=== PATIENT | female | born 1955 | race Caucasian/White ===

== ENCOUNTER 2016-08-22 10:42 | Observation (INO) | payer OTHER ==
[~2016-08-22] VITALS: Ht 170.2 cm; Wt 161.1 kg
[2016-08-22] VITALS (7 sets, daily range): BP systolic 91–137; BP diastolic 63–77; PULSE 77–97; TEMP 36.9–37.1; O2SAT 91–95; Ht 170.2 cm; Wt 161.1 kg
[~2016-08-22 10:42] MED LIST: BUPRTAB51 PO; CHN/1 PO; DIVA500T59 PO; LORA-741 PO; RTL20 PO; TERB250T51 PO
[2016-08-22] MEDS ORDERED: VORT1TAB3 PO (11:09)
[2016-08-22] MEDS ORDERED: METH20TA66 PO (11:09)
[2016-08-22] MEDS ORDERED: WLLSR150 PO (11:09)
[2016-08-22] MEDS ORDERED: CHOL1000 PO (11:09)
[2016-08-22] MEDS ORDERED: SODIUM CHLORIDE 0.9% 1000ML 1,000 ML IV STA (11:22)
[2016-08-22] MEDS ORDERED: MoRPHine SULFATE 10 MG/ML CARP/VIAL IV STA (11:22)
[2016-08-22] MEDS ORDERED: ONDANSETRON INJ 2 MG/ML 2 ML VIAL IV STA (11:22)
[2016-08-22 11:35] LABS: BASO % 0.2 %; BASO ABS # 0.02 K/uL (0-0.2); COMPLETE YES; HEMATOCRIT 44.4 % (37-47); IG% 0.2 %; LYMPH % 21.4 %; LYMPH ABS # 1.73 K/uL (1.2-3.4); MEAN CELL VOLUME 87.9 fL (80-100); MEAN CORPUSCULAR HEMOGLOBIN 27.9 pg (25-34); MEAN CORPUSCULAR HGB CONC 31.8 g/dl (32-36); MEAN PLATELET VOLUME 13.1 fL (7.4-10.4); MONO % 5.9 %; NEUT % 69.3 %; PLATELET COUNT 168 K/uL (130-400); RED BLOOD COUNT 5.05 M/uL (4.2-5.4); WHITE BLOOD COUNT 8.07 K/uL (4.8-10.8)
[2016-08-22 11:42] LABS: BUN/CREATININE RATIO 11.9 (10-20); CALCIUM 8.7 mg/dl (8.5-10.1); CREATININE 0.98 mg/dl (0.60-1.20); MAGNESIUM 2.3 mg/dl (1.8-2.4); POTASSIUM 3.9 mmol/L (3.5-5.1)
[2016-08-22 11:46] LABS: URINE APPEARANCE CLEAR (CLEAR); URINE BILIRUBIN NEG (NEG); URINE COLOR DK YELLOW; URINE NITRITE NEG (NEG); URINE PH 8.5 (4.5-7.5); URINE SPECIFIC GRAVITY 1.022 (1.000-1.030); UROBILINOGEN NEG (NEG); ZZUR CULT IF INDIC CLEAN CATCH NO
[2016-08-22 11:48] LABS: INR 0.9 (0.9-1.1); PROTHROMBIN TIME (PATIENT) 10.1 SECONDS (9.0-12.0)
[2016-08-22 11:49] LABS: POINT OF CARE PRO-BNP < 15 pg/ml (0-900)
[2016-08-22 11:50] LABS: MANUAL MICROSCOPIC REQUIRED? NO; REVIEW REQ? NO
[2016-08-22 11:53] LABS: ALB/GLOB RATIO 0.9 (0.9-2); THYROID STIMULATING HORMONE 2.01 uIu/ml (0.300-4.500)
--- NOTE | 2016-08-22 11:54 | DIAGNOSTIC IMAGING REPORT ---
SINGLE VIEW CHEST CLINICAL HISTORY: Epigastric abdominal pain. Dyspnea. FINDINGS: An AP, portable, upright chest radiograph is obtained. No prior studies are available for comparison at the time of dictation. The examination is significant degraded by portable technique, large body habitus, and patient rotation. The heart is top normal for projection. No large pleural effusion or focal airspace consolidation is seen. Dependent atelectasis is observed. No pneumothorax is seen. The skeletal structures are osteopenic. The bony thorax is grossly intact. IMPRESSION: Dependent atelectasis with no acute cardiopulmonary abnormality identified. Electronically signed by: Nino Stahl M.D. 08/22/2016 11:53 AM Dictated Date/Time: 08/22/2016 11:51 AM
--- NOTE | 2016-08-22 13:06 | DIAGNOSTIC IMAGING REPORT ---
ULTRASOUND RIGHT UPPER QUADRANT ABDOMEN CLINICAL HISTORY: Epigastric abdominal pain. COMPARISON STUDY: Abdominal CT dated 04/20/2008. TECHNIQUE: Real-time, grayscale, and color flow sonography of the right upper quadrant of the abdomen was performed. Images are reviewed in the transverse and longitudinal planes. FINDINGS: Liver: The liver is normal in size and demonstrates heterogeneously increased echotexture consistent with hepatic steatosis. There is no intrahepatic biliary ductal dilatation. The main portal vein is patent. Gallbladder: There are numerous calcified gallstones identified. The gallbladder is distended and the gallbladder wall appears thickened measuring up to 4 mm. No pericholecystic fluid is identified. A sonographic Milton's sign is reportedly present. The common bile duct is dilated measuring up to 10 cm in diameter. Pancreas: Visualized portions of the pancreatic head and body are normal in appearance. Right kidney: Survey images of the right kidney demonstrate mild cortical atrophy. There is no hydronephrosis. Ascites: None. IMPRESSION: 1. Cholelithiasis with sonographic evidence of acute cholecystitis. Surgical consultation is advised. 2. The common bile duct is dilated measuring up to 10 mm. 3. Hepatic steatosis. Electronically signed by: Nino Stahl M.D. 08/22/2016 1:04 PM Dictated Date/Time: 08/22/2016 1:01 PM
[2016-08-22] MEDS ORDERED: MoRPHine SULFATE 4 MG/ML 1 ML CARP\\VIAL IV STA (13:16)
[2016-08-22] MEDS ORDERED: LABETALOL HCL IV 5 MG/ML 20ML IV PRN (14:00)
[2016-08-22] MEDS ORDERED: EpHEDrine SULFATE INJ 50 MG/ML AMP IV PRN (14:00)
[2016-08-22] MEDS ORDERED: ATROPINE SULFATE 0.1 MG/ML 5ML SYR IV PRN (14:00)
[2016-08-22] MEDS ORDERED: HYDROmorphone INJ 2 MG/ML SYR/VIAL IV PRN (14:00)
[2016-08-22] MEDS ORDERED: NALOXONE HCL 0.4 MG/1 ML VIAL/CARP IV PRN (14:00)
[2016-08-22] MEDS ORDERED: PHENYLEPHRINE 100MCG/ML 5ML SYR IV PRN (14:00)
[2016-08-22] MEDS ORDERED: FLUMAZENIL 0.1 MG/1 ML 10 ML VIAL IV PRN (14:00)
[2016-08-22] MEDS ORDERED: FENTANYL CITRATE INJ 50 MCG/1 ML 2 ML VIAL IV PRN ×2 (14:00→15:00)
[2016-08-22] MEDS: LACTATED RINGER'S 1000ML 1,000 ML IV SCH ×5 (14:00→23:53)
[2016-08-22] MEDS ORDERED: MEPERIDINE HCL 25 MG/ML CARP IV PRN (14:00)
[2016-08-22] MEDS ORDERED: ONDANSETRON INJ 2 MG/ML 2 ML VIAL IV PRN ×2 (14:00→15:00)
--- NOTE | 2016-08-22 14:11 | History and Physical ---
History & Physical Date & Time of Service: Aug 22, 2016 at 13:56 Chief Complaint: Abd. Pain-Gall Bladder Primary Care Physician: Allison Huntley CRNP History of Present Illness 60 y/o female with epigastric pain radiating to RUQ that began this morning. Does not identify an inciting event. She has had two previous attacks over the past several months but resolved quickly. Her pain this time is increasing during the day, has been given 14 mg morphine while in the ED. Had nausea without vomiting. Had U/S in the fall which showed "small stones." She had milk and potato chips around 09:00. Past Medical/Surgical History Medical Problems: Depression elevated BP elevated BSGs Surgical: ovarian cyst Family History Patient reports no known family medical history. Social History Smoking Status: Never Smoker Drug Use: none Multi-Drug Resistant Organisms History of MDRO: No Allergies Coded Allergies: No Known Allergies (Verified , NONE, 08/17/15) Home Medications Scheduled Bupropion HCl (Bupropion HCl Sr), 150 MG PO DAILY Cholecalciferol (Vitamin D3), 1,000 UNITS PO DAILY Methylphenidate HCl (Methylphenidate HCl), 20 MG PO DAILY Vortioxetine HBr (Trintellix), 20 MG PO DAILY Review of Systems Constitutional: No fever, No chills Respiratory: No cough, No shortness of breath Cardiovascular: No chest pain Abdomen: + pain, + nausea, + diarrhea (several months ago), No vomiting Physical Exam Vital Signs Date Time Temp Pulse Resp B/P (MAP) Pulse Ox O2 Delivery O2 Flow Rate FiO2 08/22/16 13:10 97 23 107/73 96 Nasal Cannula 2.0 08/22/16 12:21 78 08/22/16 11:57 67 20 102/51 96 Nasal Cannula 2.0 08/22/16 11:29 97 Room Air 08/22/16 10:44 36.4 68 20 157/87 95 Room Air General Appearance: WD/WN, no apparent distress Respiratory/Chest: lungs clear, normal breath sounds Cardiovascular: regular rate, rhythm Abdomen/GI: soft, + tenderness (mild RUQ, recently medicated) Skin: normal color, warm/dry Diagnostics Laboratory Results Results Past 24 Hours Test 08/22/16 11:05 08/22/16 11:29 Range/Units White Blood Count 8.07 4.8-10.8 K/uL Red Blood Count 5.05 4.2-5.4 M/uL Hemoglobin 14.1 12.0-16.0 g/dL Hematocrit 44.4 37-47 % Mean Corpuscular Volume 87.9 80-100 fL Mean Corpuscular Hemoglobin 27.9 25-34 pg Mean Corpuscular Hemoglobin Concent 31.8 32-36 g/dl Platelet Count 168 130-400 K/uL Mean Platelet Volume 13.1 7.4-10.4 fL Neutrophils (%) (Auto) 69.3 % Lymphocytes (%) (Auto) 21.4 % Monocytes (%) (Auto) 5.9 % Eosinophils (%) (Auto) 3.0 % Basophils (%) (Auto) 0.2 % Neutrophils # (Auto) 5.58 1.4-6.5 K/uL Lymphocytes # (Auto) 1.73 1.2-3.4 K/uL Monocytes # (Auto) 0.48 0.11-0.59 K/uL Eosinophils # (Auto) 0.24 0-0.5 K/uL Basophils # (Auto) 0.02 0-0.2 K/uL RDW Standard Deviation 45.7 36.4-46.3 fL RDW Coefficient of Variation 14.3 11.5-14.5 % Immature Granulocyte % (Auto) 0.2 % Immature Granulocyte # (Auto) 0.02 0.00-0.02 K/uL Prothrombin Time 10.1 9.0-12.0 SECONDS Prothromb Time International Ratio 0.9 0.9-1.1 Activated Partial Thromboplast Time 25.8 21.0-31.0 SECONDS Partial Thromboplastin Ratio 1.0 Urine Color DK YELLOW Urine Appearance CLEAR CLEAR Urine pH 8.5 4.5-7.5 Urine Specific [place] 1.022 1.000-1.030 Urine Protein NEG NEG Urine Glucose (UA) NEG NEG Urine Ketones NEG NEG Urine Occult Blood NEG NEG Urine Nitrite NEG NEG Urine Bilirubin NEG NEG Urine Urobilinogen NEG NEG Urine Leukocyte Esterase NEG NEG Sodium Level 142 136-145 mmol/L Potassium Level 3.9 3.5-5.1 mmol/L Chloride Level 106 98-107 mmol/L Carbon Dioxide Level 29 21-32 mmol/L Anion Gap 7.0 3-11 mmol/L Blood Urea Nitrogen 12 7-18 mg/dl Creatinine 0.98 0.60-1.20 mg/dl Est Creatinine Clear Calc Drug Dose 99.0 ml/min Estimated GFR () 73.2 Estimated GFR (Non- 63.1 BUN/Creatinine Ratio 11.9 10-20 Random Glucose 130 70-99 mg/dl Calcium Level 8.7 8.5-10.1 mg/dl Magnesium Level 2.3 1.8-2.4 mg/dl Total Bilirubin 0.9 0.2-1 mg/dl Aspartate Amino Transf (AST/SGOT) 57 15-37 U/L Alanine Aminotransferase (ALT/SGPT) 35 12-78 U/L Alkaline Phosphatase 91 45-117 U/L Total Creatine Kinase 134 26-192 U/L Creatine Kinase MB 1.4 0.5-3.6 ng/ml Creatine Kinase MB Ratio 1.0 0-3.0 Total Protein 7.6 6.4-8.2 gm/dl Albumin 3.6 3.4-5.0 gm/dl Globulin 4.0 2.5-4.0 gm/dl Albumin/Globulin Ratio 0.9 0.9-2 Lipase 174 73-393 U/L Thyroid Stimulating Hormone (TSH) 2.010 0.300-4.500 uIu/ml Bedside Troponin I 0.000 0-0.045 ng/ml CI-Skf-I-Type Natriuretic Peptide < 15 0-900 pg/ml Diagnostic Radiology ULTRASOUND RIGHT UPPER QUADRANT ABDOMEN CLINICAL HISTORY: Epigastric abdominal pain. COMPARISON STUDY: Abdominal CT dated 04/20/2008. TECHNIQUE: Real-time, grayscale, and color flow sonography of the right upper quadrant of the abdomen was performed. Images are reviewed in the transverse and longitudinal planes. FINDINGS: Liver: The liver is normal in size and demonstrates heterogeneously increased echotexture consistent with hepatic steatosis. There is no intrahepatic biliary ductal dilatation. The main portal vein is patent. Gallbladder: There are numerous calcified gallstones identified. The gallbladder is distended and the gallbladder wall appears thickened measuring up to 4 mm. No pericholecystic fluid is identified. A sonographic Milton's sign is reportedly present. The common bile duct is dilated measuring up to 10 cm in diameter. Pancreas: Visualized portions of the pancreatic head and body are normal in appearance. Right kidney: Survey images of the right kidney demonstrate mild cortical atrophy. There is no hydronephrosis. Ascites: None. IMPRESSION: 1. Cholelithiasis with sonographic evidence of acute cholecystitis. Surgical consultation is advised. 2. The common bile duct is dilated measuring up to 10 mm. 3. Hepatic steatosis. Electronically signed by: Nino Stahl M.D. 08/22/2016 1:04 PM Dictated Date/Time: 08/22/2016 1:01 PM Impression Assessment and Plan Acute cholecystitis Will plan for laparoscopic cholecystectomy (possible open), without cholangiogram. We will discuss timing of this with anesthesia since she ate earlier today. Procedure, recovery, and risks were discussed including, bleeding , infection, injury to CBD or other structures and possible bile leak were discussed with the patient.
[2016-08-22] MEDS ORDERED: CEFAZOLIN IV 2,000 MG/60 ML D5W IV ONE (14:45)
[2016-08-22] MEDS ORDERED: BUPIVACAINE/EPINEPHRINE 0.5% MPF 1:200,000 30 ML VIAL ONE (14:56)
[2016-08-22] MEDS ORDERED: LACTATED RINGER'S 1000ML 1,000 ML IV PRN (14:57)
[2016-08-22] MEDS ORDERED: HYDROmorphone INJ 1 MG/ML SYR IV PRN (15:00)
[2016-08-22] MEDS ORDERED: NURSING VERBAL MED ORDER ONE (15:00)
[2016-08-22] MEDS ORDERED: FENTANYL CITRATE INJ 50 MCG/1 ML 2 ML VIAL ONE (15:25)
[2016-08-22] MEDS ORDERED: MIDAZOLAM HCL 1 MG/ML 2ML VIAL ONE (15:26)
[2016-08-22] MEDS ORDERED: ACETAMINOPHEN 1000 MG/100 ML IV IV ONE (15:27)
[2016-08-22] MEDS ORDERED: LABETALOL HCL IV 5 MG/ML 20ML IV ONE (16:05)
[2016-08-22] MEDS ORDERED: NEOSTIGMINE METHYLSULFATE 5 MG/5 ML SYR ONE (16:06)
[2016-08-22] MEDS ORDERED: SUCCINYLCHOLINE CHLORIDE 20 MG/ML 10 ML VIAL IV ONE (16:06)
[2016-08-22] MEDS ORDERED: PROPOFOL IV EMULSION 10 MG/ML 20 ML VIAL IV ONE (16:06)
[2016-08-22] MEDS ORDERED: ROCURONIUM BROMIDE 10 MG/ML 5 ML VIAL ONE (16:06)
[2016-08-22] MEDS ORDERED: KETOROLAC TROMETHAMINE 30 MG/ML VIAL ONE (16:06)
[2016-08-22] MEDS ORDERED: GLYCOPYRROLATE INJ 0.2 MG/ML VIAL ONE (16:06)
[2016-08-22] MEDS ORDERED: LIDOCAINE HCL 2% 2 ML VIAL (20MG/ML) ONE (16:06)
--- NOTE | 2016-08-22 16:06 | [facility] Operative Report ---
Operative Report Operative Date Aug 22, 2016. Pre-Operative Diagnosis Acute Cholecystitis Post-Operative Diagnosis same Procedure(s) Performed lap doreen Surgeon Dr. Rhodes Turkey Farmer Surgeon(s) JOHN Torres Estimated Blood Loss 10 ml Findings acutely inflammed gallbladder Specimens A. Gallbladder Anesthesia get Complication(s) None Disposition Recovery Room / PACU I attest to the content of the Intraoperative Record and any orders documented therein. Any exceptions are noted below.
[2016-08-22] MEDS ORDERED: MoRPHine SULFATE 4 MG/ML 1 ML CARP\\VIAL IV PRN (16:15)
[2016-08-22] MEDS ORDERED: IV FLUIDS COMPLETED PRN (16:30)
[2016-08-22] MEDS ORDERED: HYDROCODONE/ACETAMOPHEN 5/325MG TAB PO PRN (16:30)
--- NOTE | 2016-08-22 16:39 | Anesthesiology Progress Note ---
Anesthesia Post Op Note Date & Time Aug 22, 2016 at 16:38 Vital Signs Pain Intensity: 0 Vital Signs Past 12 Hours Date Time Temp Pulse Resp B/P (MAP) Pulse Ox O2 Delivery O2 Flow Rate FiO2 08/22/16 16:12 38.1 97 16 153/87 94 Mask 10 08/22/16 14:46 36.7 116 20 162/66 92 Room Air 08/22/16 14:12 94 18 132/67 93 08/22/16 13:10 97 23 107/73 96 Nasal Cannula 2.0 08/22/16 12:21 78 08/22/16 11:57 67 20 102/51 96 Nasal Cannula 2.0 08/22/16 11:29 97 Room Air 08/22/16 10:44 36.4 68 20 157/87 95 Room Air Notes Mental Status: alert / awake / arousable, participated in evaluation Pt Amnestic to Procedure: Yes Nausea / Vomiting: adequately controlled Pain: adequately controlled Airway Patency, RR, SpO2: stable & adequate BP & HR: stable & adequate Hydration State: stable & adequate Anesthetic Complications: no major complications apparent Temp now normal. Keeping sats in 90s on 2L NC.
--- NOTE | 2016-08-22 21:08 | OPERATIVE REPORT ---
DATE OF OPERATION: 08/22/2016 PREOPERATIVE DIAGNOSIS: Acute cholecystitis. POSTOPERATIVE DIAGNOSIS: Same. PROCEDURE: Laparoscopic cholecystectomy. SURGEON: Dr. Rhodes. CALL BOX WIRER: Dejon Ledbetter PA-C. ESTIMATED BLOOD LOSS: 10 mL. COMPLICATIONS: No immediate. ANESTHESIA: General. The patient tolerated the procedure well. OPERATIVE NOTE: After informed consent was obtained, the patient taken to the operating suite, placed in supine position. After successful intubation, the abdomen was sterilely prepped and draped in usual fashion. A supraumbilical incision was made with 11 blade scalpel and carried down through the soft tissue using electrocautery. Anterior rectus fascia was opened using electrocautery and two #0 Vicryl stay sutures were placed. Peritoneum was entered using blunt finger penetration and a finger sweep was performed to take down any adhesions. A 12 mm Karey trocar was placed and the abdomen was insufflated to 18 mmHg. Laparoscope was inserted and the abdomen examined 360 degrees. A subxiphoid 5 mm port and 2 right upper quadrant 5 mm ports were placed under direct vision. The patient was placed in reverse Trendelenburg position slightly airplaned to the left. The gallbladder was distended and somewhat thickened. We were able to grab it and elevate it superiorly and laterally. A [place] dissector was used to take down some adhesions around the neck of the gallbladder. I was able to skeletonize the cystic duct without much difficulty. Two clips proximally and 1 clip distally were placed and the cystic duct was transected. In similar fashion, the cystic artery was skeletonized, clipped and divided as well. There was a posterior and anterior additional branches of the artery which I skeletonized, clipped and divided also. I then removed the gallbladder from the gallbladder fossa using electrocautery. It was removed intact and placed into an EndoCatch bag. Several small bleeding points were controlled using electrocautery. We irrigated the right upper quadrant and suctioned it dry. At the end of the procedure, there was adequate hemostasis and no evidence of any bile leaks. Quick look around the abdomen showed no other abnormality. The gallbladder was removed from the camera port site. All the trocars were removed and the abdomen desufflated. The fascia of the camera port was closed using 0 Vicryl in a [id number] fashion. All wounds were irrigated. We closed the majority of the incision with 4-0 Monocryl. Due to some oozing, we did close several of the incisions with a 3-0 nylon in simple interrupted fashion. Sterile dressing was applied. The patient was awakened, extubated, and transferred to recovery in stable condition. I attest to the content of the Intraoperative Record and any orders documented therein. Any exception s are noted below.
[2016-08-22] MEDS: CEFAZOLIN IV 3,000 MG in DEXTROSE 5% 50ML 50 ML IV SCH (21:52)
--- NOTE | 2016-08-22 23:15 | EMERGENCY ROOM VISIT NOTE ---
History First contact with patient: 11:15 Chief Complaint: ABDOMINAL PAIN Stated Complaint: ABDOMINAL PAIN, RIGHT LOWER QUARDRANT Nursing Triage Summary: pt reports bilat upper abd pain started at 0900 this am has hx of gallbladder problems. feels faint and weak pain stronger than other attacks History of Present Illness The patient is a 60 year old female who presents to the Emergency Room via private vehicle with complaints of "abdominal pain, right lower quadrant pain" . The patient states that today around 9 AM, she noticed pain in the stomach region, and is been getting worse. She notes the pain is intense, and points to the epigastric and right upper quadrant regions. Her last movement was last night, and it was normal for her but perhaps slightly constipated. She denies any blood in the stool. She denies any chance of . There is associated shortness of breath, and diaphoresis. She denies any nausea, chest pain, history of blood clots, history of heart problems, diabetes, fevers, chills, or call use, long flights. Review of Systems A complete 10-point Review of Systems was discussed with the patient, with pertinent positives and negatives listed in the History of Present Illness. All remaining Review of Systems questions can be considered negative unless otherwise specified. Past Medical/Surgical History Medical Problems: (1) Abdominal pain, right lower quadrant (2) Abnorm Electrocardiogram (3) Hypertension Nos Family History Patient reports no known family medical history. Social History Smoking Status: Former Smoker Drug Use: none Current/Historical Medications Scheduled Bupropion HCl (Bupropion HCl Sr), 150 MG PO DAILY Cholecalciferol (Vitamin D3), 1,000 UNITS PO DAILY Methylphenidate HCl (Methylphenidate HCl), 20 MG PO DAILY Vortioxetine HBr (Trintellix), 20 MG PO DAILY Allergies Coded Allergies: No Known Allergies (Verified , NONE, 08/22/16) Physical Exam Vital Signs Date Time Temp Pulse Resp B/P (MAP) Pulse Ox O2 Delivery O2 Flow Rate FiO2 08/22/16 14:46 36.7 116 20 162/66 92 Room Air 08/22/16 14:12 94 18 132/67 93 08/22/16 13:10 97 23 107/73 96 Nasal Cannula 2.0 08/22/16 12:21 78 08/22/16 11:57 67 20 102/51 96 Nasal Cannula 2.0 08/22/16 11:29 97 Room Air 08/22/16 10:44 36.4 68 20 157/87 95 Room Air Pain Rating (0-10): 4.0 Physical Exam VITAL SIGNS - Vital signs and nursing notes were reviewed. Patient is afebrile , hypertensive at 157 or radius 7, non-tachycardic and saturating normal room air 95%. GENERAL -60-year-old female appearing her stated age who is in no acute distress. Communicates well with provider and answers questions appropriately. SKIN - Without rashes. No petechial rashes. HEAD - NC/AT. EYES - PERRL with EOMI bilaterally. Sclera anicteric. Palpebral conjunctiva pink and moist with no injection noted. EARS - No deformities of external structures noted on gross examination bilaterally. No pain elicited with palpation of the tragus bilaterally. External auditory canals without discharge or otorrhea. Tympanic membranes pearly crain without retraction or bulging. No fluid or purulent material visualized behind the TM. Handle of malleus, umbo, cone of light, pars tensa/ flaccid all easily visualized. NOSE - Midline and without cyanosis. No epistaxis or purulent drainage noted. Septum midline without deviation or septal hematoma noted. MOUTH/OROPHARYNX - Without perioral cyanosis. Buccal mucosa pink and moist and without leukoplakia. Tongue midline with equal elevation of palate bilaterally. No tonsillar hypertrophy, erythema, or exudates noted. Fair dentition noted. LUNGS - Chest wall symmetric without accessory muscle use, intercostals retractions, or central cyanosis. Normal vesicular breath sounds CTA B/L. No wheezes, rales, or rhonchi appreciated. CARDIAC - RRR with S1/S2. No murmur, rubs, or gallops appreciated. ABDOMEN - Abdominal contour without pulsations or visible masses. BS normoactive all four quadrants. There is diffuse tenderness in the upper quadrants. No palpable masses, hepatosplenomegaly, or ascites noted. EXTREMITIES - No clubbing or peripheral cyanosis. No pretibial edema present. + 5/5 strength noted in UE/LE bilaterally. Medical Decision & Procedures ER Provider Diagnostic Interpretation: SINGLE VIEW CHEST CLINICAL HISTORY: Epigastric abdominal pain. Dyspnea. FINDINGS: An AP, portable, upright chest radiograph is obtained. No prior studies are available for comparison at the time of dictation. The examination is significant degraded by portable technique, large body habitus, and patient rotation. The heart is top normal for projection. No large pleural effusion or focal airspace consolidation is seen. Dependent atelectasis is observed. No pneumothorax is seen. The skeletal structures are osteopenic. The bony thorax is grossly intact. IMPRESSION: Dependent atelectasis with no acute cardiopulmonary abnormality identified. Electronically signed by: Nino Stahl M.D. 08/22/2016 11:53 AM Dictated Date/Time: 08/22/2016 11:51 AM ULTRASOUND RIGHT UPPER QUADRANT ABDOMEN CLINICAL HISTORY: Epigastric abdominal pain. COMPARISON STUDY: Abdominal CT dated 04/20/2008. TECHNIQUE: Real-time, grayscale, and color flow sonography of the right upper quadrant of the abdomen was performed. Images are reviewed in the transverse and longitudinal planes. FINDINGS: Liver: The liver is normal in size and demonstrates heterogeneously increased echotexture consistent with hepatic steatosis. There is no intrahepatic biliary ductal dilatation. The main portal vein is patent. Gallbladder: There are numerous calcified gallstones identified. The gallbladder is distended and the gallbladder wall appears thickened measuring up to 4 mm. No pericholecystic fluid is identified. A sonographic Milton's sign is reportedly present. The common bile duct is dilated measuring up to 10 cm in diameter. Pancreas: Visualized portions of the pancreatic head and body are normal in appearance. Right kidney: Survey images of the right kidney demonstrate mild cortical atrophy. There is no hydronephrosis. Ascites: None. IMPRESSION: 1. Cholelithiasis with sonographic evidence of acute cholecystitis. Surgical consultation is advised. 2. The common bile duct is dilated measuring up to 10 mm. 3. Hepatic steatosis. Electronically signed by: Nino Stahl M.D. 08/22/2016 1:04 PM Dictated Date/Time: 08/22/2016 1:01 PM Laboratory Results 08/22/16 11:05 Red Blood Count 5.05, Mean Corpuscular Volume 87.9, Mean Corpuscular Hemoglobin 27.9, Mean Corpuscular Hemoglobin Concent 31.8, Mean Platelet Volume 13.1, Neutrophils (%) (Auto) 69.3, Lymphocytes (%) (Auto) 21.4, Monocytes (%) (Auto) 5.9, Eosinophils (%) (Auto) 3.0, Basophils (%) (Auto) 0.2, Neutrophils # (Auto) 5.58, Lymphocytes # (Auto) 1.73, Monocytes # (Auto) 0.48, Eosinophils # (Auto) 0.24, Basophils # (Auto) 0.02 08/22/16 11:05 Test 08/22/16 11:05 08/22/16 11:29 White Blood Count 8.07 K/uL (4.8-10.8) Red Blood Count 5.05 M/uL (4.2-5.4) Hemoglobin 14.1 g/dL (12.0-16.0) Hematocrit 44.4 % (37-47) Mean Corpuscular Volume 87.9 fL (80-100) Mean Corpuscular Hemoglobin 27.9 pg (25-34) Mean Corpuscular Hemoglobin Concent 31.8 g/dl (32-36) Platelet Count 168 K/uL (130-400) Mean Platelet Volume 13.1 fL (7.4-10.4) Neutrophils (%) (Auto) 69.3 % Lymphocytes (%) (Auto) 21.4 % Monocytes (%) (Auto) 5.9 % Eosinophils (%) (Auto) 3.0 % Basophils (%) (Auto) 0.2 % Neutrophils # (Auto) 5.58 K/uL (1.4-6.5) Lymphocytes # (Auto) 1.73 K/uL (1.2-3.4) Monocytes # (Auto) 0.48 K/uL (0.11-0.59) Eosinophils # (Auto) 0.24 K/uL (0-0.5) Basophils # (Auto) 0.02 K/uL (0-0.2) RDW Standard Deviation 45.7 fL (36.4-46.3) RDW Coefficient of Variation 14.3 % (11.5-14.5) Immature Granulocyte % (Auto) 0.2 % Immature Granulocyte # (Auto) 0.02 K/uL (0.00-0.02) Prothrombin Time 10.1 SECONDS (9.0-12.0) Prothromb Time International Ratio 0.9 (0.9-1.1) Activated Partial Thromboplast Time 25.8 SECONDS (21.0-31.0) Partial Thromboplastin Ratio 1.0 Urine Color DK YELLOW Urine Appearance CLEAR (CLEAR) Urine pH 8.5 (4.5-7.5) Urine Specific [place] 1.022 (1.000-1.030) Urine Protein NEG (NEG) Urine Glucose (UA) NEG (NEG) Urine Ketones NEG (NEG) Urine Occult Blood NEG (NEG) Urine Nitrite NEG (NEG) Urine Bilirubin NEG (NEG) Urine Urobilinogen NEG (NEG) Urine Leukocyte Esterase NEG (NEG) Anion Gap 7.0 mmol/L (3-11) Est Creatinine Clear Calc Drug Dose 99.0 ml/min Estimated GFR () 73.2 Estimated GFR (Non- 63.1 BUN/Creatinine Ratio 11.9 (10-20) Calcium Level 8.7 mg/dl (8.5-10.1) Magnesium Level 2.3 mg/dl (1.8-2.4) Total Bilirubin 0.9 mg/dl (0.2-1) Aspartate Amino Transf (AST/SGOT) 57 U/L (15-37) Alanine Aminotransferase (ALT/SGPT) 35 U/L (12-78) Alkaline Phosphatase 91 U/L (45-117) Total Creatine Kinase 134 U/L (26-192) Creatine Kinase MB 1.4 ng/ml (0.5-3.6) Creatine Kinase MB Ratio 1.0 (0-3.0) Total Protein 7.6 gm/dl (6.4-8.2) Albumin 3.6 gm/dl (3.4-5.0) Globulin 4.0 gm/dl (2.5-4.0) Albumin/Globulin Ratio 0.9 (0.9-2) Lipase 174 U/L (73-393) Thyroid Stimulating Hormone (TSH) 2.010 uIu/ml (0.300-4.500) Bedside Troponin I 0.000 ng/ml (0-0.045) MB-Nob-W-Type Natriuretic Peptide < 15 pg/ml (0-900) Medications Administered Medications (Trade) Dose Ordered Sig/Milton Route Start Time Stop Time Status Last Admin Dose Admin Sodium Chloride 1,000 ml @ 200 mls/hr Q5H STAT IV 08/22/16 11:22 08/22/16 16:21 DC 08/22/16 11:38 200 MLS/HR Morphine Sulfate (MoRPHine SULFATE INJ) 10 mg NOW STAT IV 08/22/16 11:22 08/22/16 11:25 DC 08/22/16 11:38 10 MG Ondansetron HCl (Zofran Inj) 4 mg NOW STAT IV 08/22/16 11:22 08/22/16 11:25 DC 08/22/16 11:38 4 MG Morphine Sulfate (MoRPHine SULFATE INJ) 4 mg NOW STAT IV 08/22/16 13:16 08/22/16 13:18 DC 08/22/16 13:26 4 MG Lactated Ringer's 1,000 ml @ 150 mls/hr Q6H40M IV 08/22/16 14:00 08/22/16 23:06 DC 08/22/16 20:07 150 MLS/HR Bupivacaine HCl/ Epinephrine Bitart (Sensorcaine/ Epinephrine 0.5% Mpf 1:200,000) 30 ml STK-MED ONCE .ROUTE 08/22/16 14:56 08/22/16 14:57 DC 08/22/16 15:56 8 ML Medical Decision Patient was seen and evaluated as above. After obtaining a thorough history and physical examination IV access was initiated, patient was immediately provided with pain medication, 10 mg of morphine and 4 mg of Zofran. Her emergent EKG reveals sinus rhythm, with short NM, otherwise normal EKG. No ectopy or ischemic change. This was compared with EKG that was performed on October 1998, and no significant change was found. The patient's vital signs were stable, however her upper quadrant abdominal pain was concerning. Chest x- ray was negative. Ultrasound was obtained and revealed acute cholecystitis. There is no leukocytosis or concerning anemia. Coagulation studies unremarkable. CMP unremarkable other than AST elevated at 57, and random glucose of 1:30. BNP and troponin were negative. Lipase and TSH were unremarkable. Urine studies unremarkable other than high pH. Surgical consultation was recommended by the radiologist given the ultrasound findings. I did discuss the case with the construction controller surgeon, Dr. Rhodes at 1:21 PM. It was identified that the patient last ate chocolate milk and potato chips at 9 AM. He agreed to accept the patient. Please refer to further documentation regarding her stay. I do believe that she is a surgical candidate. In evaluation treatment this patient following differential diagnoses entertained: Acute cholecystitis, choledocholithiasis, cholangitis, pancreatitis , UT, PE, among others. Impression Primary Impression: Acute cholecystitis Departure Information Dispostion Admitted as an inpatient Condition GOOD Referrals Allison Huntley CRNP (PCP) Forms Call Back Authorization, HOME CARE DOCUMENTATION FORM, IMPORTANT VISIT INFORMATION Patient Instructions [facility]
[2016-08-23 03:50] VITALS: BP 107/71; PULSE 67; TEMP 36.8; O2SAT 93
[2016-08-23] MEDS: CEFAZOLIN IV 3,000 MG in DEXTROSE 5% 50ML 50 ML IV SCH (05:53)
[2016-08-23 06:55] VITALS: BP 113/70; PULSE 64; TEMP 36.7; O2SAT 95
[2016-08-23] MEDS: LACTATED RINGER'S 1000ML 1,000 ML IV SCH (07:39)
[2016-08-23] MEDS: TRINTELLIX~ORDER AWAITING ACTION SCH ×2 (07:40)
[2016-08-23 07:41] LABS: MEAN CORPUSCULAR HGB CONC 31.6 g/dl (32-36)
[2016-08-23] MEDS ORDERED: OXYC-57 PO (07:51)
--- NOTE | 2016-08-23 07:53 | Discharge Instructions ---
Discharge Instructions Date of Service Aug 23, 2016. Admission Reason for Admission: Abdominal Pain, Right Lower Quardrant Discharge Discharge Diagnosis / Problem: laparoscopic cholecystectomy Discharge Goals Goal(s): Decrease discomfort Activity Recommendations Activity Limitations: as noted below Lifting Limitations: no more than 10 pounds Shower/Bathe: no limitations Driving or Machine Use: resume 3 days after discharge . Instructions / Follow-Up Instructions / Follow-Up Dr. Rhodes in 7-10 days, call [phone] to schedule, [address] Current Hospital Diet Patient's current hospital diet: Regular Diet Discharge Diet Recommended Diet: Regular Diet Procedures Procedures Performed: Laparoscopic Cholecystectomy Pending Studies Studies pending at discharge: yes List of pending studies: Pathology Medical Emergencies . Who to Call and When: Medical Emergencies: If at any time you feel your situation is an emergency, please call 911 immediately. . Non-Emergent Contact Non-Emergency issues call your: Surgeon Call Non-Emergent contact if: you have a fever, temperature is above 101.5, your pain is not controlled, wound has increased pain, you have any medication questions . "Provider Documentation" section prepared by Dejon Ledbetter. . VTE Core Measure Inpt VTE Proph given/why not?: SCD's
[2016-08-23 08:00] LABS: HEMATOCRIT 39.9 % (37-47); MEAN CELL VOLUME 89.3 fL (80-100); MEAN CORPUSCULAR HEMOGLOBIN 28.2 pg (25-34); RED BLOOD COUNT 4.47 M/uL (4.2-5.4); WHITE BLOOD COUNT 12.85 K/uL (4.8-10.8)
[2016-08-23] MEDS ORDERED: ACETAMINOPHEN 325 MG TAB PO PRN (08:00)
--- NOTE | 2016-08-23 08:10 | Anesthesiology Progress Note ---
Anesthesia Post Op Note Date & Time Aug 23, 2016 at 08:09 Vital Signs Pain Intensity: 5.0 Vital Signs Past 12 Hours Date Time Temp Pulse Resp B/P (MAP) Pulse Ox O2 Delivery O2 Flow Rate FiO2 08/23/16 06:55 36.7 64 16 113/70 (84) 95 Nasal Cannula 4.0 08/23/16 03:50 36.8 67 16 107/71 (83) 93 Nasal Cannula 4.0 08/22/16 23:50 Nasal Cannula 4.0 08/22/16 23:03 36.9 77 16 91/63 (72) 94 Nasal Cannula 4.0 Notes Mental Status: alert / awake / arousable, participated in evaluation Pt Amnestic to Procedure: Yes Nausea / Vomiting: adequately controlled Pain: adequately controlled Airway Patency, RR, SpO2: stable & adequate BP & HR: stable & adequate Hydration State: stable & adequate Anesthetic Complications: no major complications apparent
[2016-08-23 08:32] LABS: BASO % 0.1 %; BASO ABS # 0.01 K/uL (0-0.2); COMPLETE YES; IG% 0.2 %; LYMPH % 7.1 %; LYMPH ABS # 0.91 K/uL (1.2-3.4); MEAN PLATELET VOLUME 13.7 fL (7.4-10.4); MONO % 3.3 %; NEUT % 89.3 %; PLATELET COUNT 136 K/uL (130-400); PLT ESTIMATE NORMAL
[2016-08-23] MEDS ORDERED: ENOXAPARIN 40 MG/0.4 ML SYR SQ SCH (09:00)
[2016-08-23] MEDS ORDERED: METHYLPHENIDATE HCL 10 MG TAB PO SCH (09:00)
[2016-08-23] MEDS ORDERED: BuPROPion SR 150 MG TABCR PO SCH (09:00)
--- NOTE | 2016-08-23 10:06 | Surgery Progress Note ---
Surgery Progress Note Date of Service Aug 23, 2016. Subjective Post OP Day: 1 + feeling well, + diet (regular), No nausea Objective Vital Signs: Date Time Temp Pulse Resp B/P (MAP) Pulse Ox O2 Delivery O2 Flow Rate FiO2 08/23/16 07:35 Nasal Cannula 4.0 08/23/16 06:55 36.7 64 16 113/70 (84) 95 Nasal Cannula 4.0 08/23/16 03:50 36.8 67 16 107/71 (83) 93 Nasal Cannula 4.0 08/22/16 23:50 Nasal Cannula 4.0 08/22/16 23:03 36.9 77 16 91/63 (72) 94 Nasal Cannula 4.0 08/22/16 20:00 37.0 92 18 96/65 (75) 93 Nasal Cannula 4.0 08/22/16 19:01 37.1 97 20 117/76 (90) 95 Nasal Cannula 4.0 08/22/16 18:09 37.1 92 16 137/77 (97) 92 Nasal Cannula 4.0 08/22/16 17:29 37.1 86 24 121/74 (90) 91 Nasal Cannula 4.0 08/22/16 17:15 37.1 92 20 125/77 93 Nasal Cannula 4.0 08/22/16 17:15 93 Nasal Cannula 4.0 08/22/16 17:00 37.1 92 20 125/77 (93) 93 Nasal Cannula 4.0 08/22/16 16:57 93 08/22/16 16:57 93 111/61 93 08/22/16 16:52 90 18 112/58 94 08/22/16 16:52 90 18 08/22/16 16:47 87 20 113/67 93 08/22/16 16:47 87 20 08/22/16 16:42 27 08/22/16 16:42 93 27 121/68 08/22/16 16:40 37.3 96 23 121/68 95 Nasal Cannula 4 08/22/16 16:37 98 27 08/22/16 16:37 98 27 116/73 91 08/22/16 16:32 99 28 132/78 91 08/22/16 16:32 99 28 08/22/16 16:27 99 29 147/76 94 08/22/16 16:27 98 29 08/22/16 16:22 93 22 154/80 94 08/22/16 16:22 93 22 08/22/16 16:17 97 25 08/22/16 16:17 96 25 137/83 93 08/22/16 16:13 153/87 08/22/16 16:12 38.1 97 16 153/87 94 Mask 10 08/22/16 14:46 36.7 116 20 162/66 92 Room Air 08/22/16 14:12 94 18 132/67 93 08/22/16 13:10 97 23 107/73 96 Nasal Cannula 2.0 08/22/16 12:21 78 08/22/16 11:57 67 20 102/51 96 Nasal Cannula 2.0 08/22/16 11:29 97 Room Air 08/22/16 10:44 36.4 68 20 157/87 95 Room Air Abdomen: non distended, soft Incision(s): clean, dry Laboratory Results: Results Past 24 Hours Test 08/22/16 11:05 08/22/16 11:29 08/23/16 07:20 Range/Units White Blood Count 8.07 12.85 4.8-10.8 K/uL Red Blood Count 5.05 4.47 4.2-5.4 M/uL Hemoglobin 14.1 12.6 12.0-16.0 g/dL Hematocrit 44.4 39.9 37-47 % Mean Corpuscular Volume 87.9 89.3 80-100 fL Mean Corpuscular Hemoglobin 27.9 28.2 25-34 pg Mean Corpuscular Hemoglobin Concent 31.8 31.6 32-36 g/dl Platelet Count 168 136 130-400 K/uL Mean Platelet Volume 13.1 13.7 7.4-10.4 fL Neutrophils (%) (Auto) 69.3 89.3 % Lymphocytes (%) (Auto) 21.4 7.1 % Monocytes (%) (Auto) 5.9 3.3 % Eosinophils (%) (Auto) 3.0 0.0 % Basophils (%) (Auto) 0.2 0.1 % Neutrophils # (Auto) 5.58 11.47 1.4-6.5 K/uL Lymphocytes # (Auto) 1.73 0.91 1.2-3.4 K/uL Monocytes # (Auto) 0.48 0.43 0.11-0.59 K/uL Eosinophils # (Auto) 0.24 0.00 0-0.5 K/uL Basophils # (Auto) 0.02 0.01 0-0.2 K/uL RDW Standard Deviation 45.7 47.6 36.4-46.3 fL RDW Coefficient of Variation 14.3 14.6 11.5-14.5 % Immature Granulocyte % (Auto) 0.2 0.2 % Immature Granulocyte # (Auto) 0.02 0.03 0.00-0.02 K/uL Prothrombin Time 10.1 9.0-12.0 SECONDS Prothromb Time International Ratio 0.9 0.9-1.1 Activated Partial Thromboplast Time 25.8 21.0-31.0 SECONDS Partial Thromboplastin Ratio 1.0 Urine Color DK YELLOW Urine Appearance CLEAR CLEAR Urine pH 8.5 4.5-7.5 Urine Specific [place] 1.022 1.000-1.030 Urine Protein NEG NEG Urine Glucose (UA) NEG NEG Urine Ketones NEG NEG Urine Occult Blood NEG NEG Urine Nitrite NEG NEG Urine Bilirubin NEG NEG Urine Urobilinogen NEG NEG Urine Leukocyte Esterase NEG NEG Sodium Level 142 136-145 mmol/L Potassium Level 3.9 3.5-5.1 mmol/L Chloride Level 106 98-107 mmol/L Carbon Dioxide Level 29 21-32 mmol/L Anion Gap 7.0 3-11 mmol/L Blood Urea Nitrogen 12 7-18 mg/dl Creatinine 0.98 0.60-1.20 mg/dl Est Creatinine Clear Calc Drug Dose 99.0 ml/min Estimated GFR () 73.2 Estimated GFR (Non- 63.1 BUN/Creatinine Ratio 11.9 10-20 Random Glucose 130 70-99 mg/dl Calcium Level 8.7 8.5-10.1 mg/dl Magnesium Level 2.3 1.8-2.4 mg/dl Total Bilirubin 0.9 0.2-1 mg/dl Aspartate Amino Transf (AST/SGOT) 57 15-37 U/L Alanine Aminotransferase (ALT/SGPT) 35 12-78 U/L Alkaline Phosphatase 91 45-117 U/L Total Creatine Kinase 134 26-192 U/L Creatine Kinase MB 1.4 0.5-3.6 ng/ml Creatine Kinase MB Ratio 1.0 0-3.0 Total Protein 7.6 6.4-8.2 gm/dl Albumin 3.6 3.4-5.0 gm/dl Globulin 4.0 2.5-4.0 gm/dl Albumin/Globulin Ratio 0.9 0.9-2 Lipase 174 73-393 U/L Thyroid Stimulating Hormone (TSH) 2.010 0.300-4.500 uIu/ml Bedside Troponin I 0.000 0-0.045 ng/ml PT-[id number]-Type Natriuretic Peptide < 15 0-900 pg/ml Platelet Estimate NORMAL Red Blood Cell Morphology Unremarkable Assessment & Plan s/p lap doreen afebrile overnight tolerating diet ok for discharge seen with Dr. Rhodes
[2016-08-23 11:13] VITALS: BP 113/70; PULSE 64; TEMP 36.7; O2SAT 95
--- NOTE | 2016-08-24 05:52 | DISCHARGE SUMMARY ---
PRIMARY DISCHARGE DIAGNOSES: 1. Acute cholecystitis. 2. Obesity. SECONDARY DISCHARGE DIAGNOSIS: Depression. HOSPITAL COURSE: The patient is a 60-year-old female who presented to the Emergency Department with epigastric pain radiating to the right upper quadrant that began earlier in the day and continued to increase throughout the day. Her white count was 8000, but ultrasound showed cholelithiasis with distended gallbladder and wall thickening. She was taken to the operating room that afternoon for laparoscopic cholecystectomy. The procedure was well tolerated. She was noted to have a fever intraoperatively. She was transferred to the surgical floor for overnight observation. She remained afebrile. She was kept on IV antibiotics overnight. By day 1, she was tolerating diet and oral analgesics. Her incisions were dry. Her white count was 12,000. She was stable for discharge. DISCHARGE INSTRUCTIONS: Discharge home. Follow up with Dr. Rhodes in 7-10 days. DISCHARGE MEDICATIONS: Percocet 1-2 tablets every 4 hours as needed. Resume home meds, Wellbutrin 150 mg daily, Trintellix 20 mg daily, methylphenidate 20 mg daily, and vitamin D supplement 1000 units daily.
[2017-01-21] MEDS ORDERED: GLC/500 PO (15:51)
[2017-01-21] MEDS ORDERED: MULT-1027 PO (15:56)
[2017-02-03] MEDS ORDERED: HYDR-5688 PO (08:13)
== END 2016-08-23 11:45 | disposition home or self-care (01) ==
LOC: C.EDB 10:43 → C.MSN 16:02 → ENRESERV 16:47
PROVIDERS: ADMIT Surgery; ATTEND Surgery
DX: K80.12 Calculus of gallbladder with acute and chronic cholecystitis without obstruction (principal); I10 Essential (primary) hypertension; E66.9 Obesity, unspecified; F32.9 Major depressive disorder, single episode, unspecified; Z87.891 Personal history of nicotine dependence

== ENCOUNTER → 2016-09-12 | Outpatient (CLI) | payer OTHER ==
[~2016-09-12] MED LIST changes: -BUPRTAB51 PO; -CHN/1 PO; +CHOL1000 PO; -DIVA500T59 PO; +GLC/500 PO; +HYDR-5688 PO; -LORA-741 PO; +METH20TA66 PO; +MULT-1027 PO; +OXYC-57 PO; -RTL20 PO; -TERB250T51 PO; +VORT1TAB3 PO; +WLLSR150 PO
[2016-09-12 10:35] LABS: BASO % 0.2 %; BASO ABS # 0.01 K/uL (0-0.2); COMPLETE YES; EOS % 3.9 %; HEMATOCRIT 43.5 % (37-47); IG% 0.2 %; LYMPH % 40.3 %; LYMPH ABS # 2.05 K/uL (1.2-3.4); MEAN CELL VOLUME 89.5 fL (80-100); MEAN CORPUSCULAR HEMOGLOBIN 27.8 pg (25-34); MEAN PLATELET VOLUME 14.4 fL (7.4-10.4); MONO % 6.1 %; NEUT % 49.3 %; PLATELET COUNT 169 K/uL (130-400); RED BLOOD COUNT 4.86 M/uL (4.2-5.4); WHITE BLOOD COUNT 5.09 K/uL (4.8-10.8)
[2016-09-12 10:44] LABS: ALT/SGPT 24 U/L (12-78); AST/SGOT 16 U/L (15-37); BLOOD UREA NITROGEN 11 mg/dl (7-18); BUN/CREATININE RATIO 12.2 (10-20); CALCIUM 8.2 mg/dl (8.5-10.1); CARBON DIOXIDE 28 mmol/L (21-32); CHLORIDE 109 mmol/L (98-107); CREATININE 0.92 mg/dl (0.60-1.20); GLUCOSE 110 mg/dl (70-99); POTASSIUM 4.1 mmol/L (3.5-5.1); SODIUM 142 mmol/L (136-145)
[2016-09-12 10:55] LABS: ALB/GLOB RATIO 0.9 (0.9-2); ALKALINE PHOSPHATASE 89 U/L (45-117); CHOLESTEROL 170 mg/dl (0-200); CHOLESTEROL/HDL RATIO 5.7; HDL CHOLESTEROL 30 mg/dl; LDL CHOLESTEROL CALCULATED 108 mg/dl; TRIGLYCERIDES 161 mg/dl (0-150); VERY LOW DENSITY LIPOPROT CALC 32 mg/dl
[2016-09-12 11:30] LABS: ESTIMATED AVERAGE GLUCOSE 123 mg/dl; HA1C FLAG Normal (Normal)
== END | disposition home or self-care (01) ==
LOC: C.LAB1850 09:20
PROVIDERS: ATTEND Nurse Practitioner Adult Health
DX: K76.0 Fatty (change of) liver, not elsewhere classified (principal); I10 Essential (primary) hypertension; Z86.39 Personal history of other endocrine, nutritional and metabolic disease

== ENCOUNTER → 2016-10-10 | Outpatient (CLI) | payer OTHER ==
[~2016-10-10] MED LIST changes: -GLC/500 PO; -HYDR-5688 PO; -MULT-1027 PO
--- NOTE | 2016-10-11 12:19 | MAMMOGRAPHY REPORT ---
BILATERAL DIGITAL SCREENING MAMMOGRAM TOMOSYNTHESIS WITH CAD: 10/10/2016 CLINICAL HISTORY: Routine screening. Patient has no complaints. TECHNIQUE: Bilateral CC and MLO 2-D and tomosynthesis is images, 2-D XCCL views were obtained. Curre nt study was also evaluated with a Computer Aided Detection (CAD) system. COMPARISON: Comparison is made to exams dated: 09/29/2015 mammogram, 09/14/2014 mammogram, 09/13/2013 ma mmogram, 08/26/2012 mammogram, 08/22/2011 mammogram, and 07/24/2010 mammogram. BREAST COMPOSITION: There are scattered areas of fibroglandular density in both breasts. FINDINGS: There is a stable 8 mm circumscribed mass in the lateral left breast. Stable nodularity in the medial right breast. No new suspicious mass, architectural distortion or cluster of microcalcif ications is seen. IMPRESSION: ACR BI-RADS CATEGORY 1: NEGATIVE There is no mammographic evidence of malignancy. A 1 year screening mammogram is recommended. The pa tient will receive written notification of the results. Approximately 10% of breast cancers are not detected with mammography. A negative mammographic report should not delay biopsy if a clinically suggestive mass is present. Rupa Lemus M.D. ay/:10/10/2016 17:03:07 Technology Development Intern: Tess ERNST)(M), [facility] letter sent: Normal 1/2 BI-RADS Code: ACR BI-RADS Category 1: Negative
== END | disposition home or self-care (01) ==
LOC: C.MAMM 11:07
PROVIDERS: ATTEND Obstetrics & Gynecology
DX: Z12.31 Encounter for screening mammogram for malignant neoplasm of breast (principal)

== ENCOUNTER → 2016-10-14 | Outpatient (CLI) | payer OTHER ==
--- NOTE | 2016-10-14 15:27 | DIAGNOSTIC IMAGING REPORT ---
CHEST 2 VIEWS ROUTINE HISTORY: 61 years-old Female R06.02 SOB (shortness of breath)[id number] COMPARISON: Chest radiograph 08/22/2016 TECHNIQUE: Frontal and lateral views of the chest FINDINGS: Cardiomediastinal and hilar silhouettes are within normal limits. There is no pneumothorax or pleural effusion. Hazy left basilar opacity suggests atelectasis. The bones appear to be grossly intact. Subcortical cystic changes are seen within the left greater tuberosity of the humerus. IMPRESSION: Minimal left basilar atelectasis without acute cardiopulmonary process. The above report was generated using voice recognition software. It may contain grammatical, syntax or spelling errors. Electronically signed by: Devin Ghotra M.D. 10/14/2016 3:26 PM Dictated Date/Time: 10/14/2016 3:25 PM
== END | disposition home or self-care (01) ==
LOC: C.RAD1850 15:05
PROVIDERS: ATTEND Nurse Practitioner Adult Health
DX: R06.02 Shortness of breath (principal)

== ENCOUNTER → 2016-10-30 | Outpatient (CLI) | payer OTHER ==
--- NOTE | 2016-10-30 14:48 | DIAGNOSTIC IMAGING REPORT ---
(CHEST) THORAX WITHOUT CT DOSE: 1111.93 mGy.cm CLINICAL HISTORY: 61 years-old Female with Z87.891 Former [id number] SOB (shortness of breath on exertion. TECHNIQUE: Multiaxial CT images of the chest were performed without contrast. A dose lowering technique was utilized adhering to the principles of ALARA. COMPARISON: Chest radiograph 10/14/2016 FINDINGS: No focal thyroid nodule. Evaluation for adenopathy is limited without the use of IV contrast. Upper limits of normal right paratracheal and subcarinal lymph nodes are seen measuring up to 1.0 cm in short axis, nonspecific. Cardiac silhouette is within normal limits with trace pericardial effusion. There is mild atherosclerotic plaquing of the aorta. Mild to moderate biapical centrilobular and paraseptal emphysematous changes are present. There is no pneumothorax or pleural effusion. Subsegmental bibasilar atelectasis is present. There is focal groundglass opacity of the right upper lobe abutting the right major fissure as seen on image 27 of the axial series. This measures up to 10 x 9 mm as seen on the coronal and sagittal reformatted images. No suspicious pulmonary nodules or masses are identified. Central airways are patent. Prior cholecystectomy. Patient obesity is noted. Bones are intact with multilevel Schmorl's nodes. IMPRESSION: 1. No acute cardiopulmonary process. 2. Focal groundglass opacity of the right upper lobe abutting the major fissure measuring up to 10 mm should be followed according to the guidelines below to exclude progressive abnormality. 3. Mild to moderate upper lobe predominant centrilobular and paraseptal emphysema. Please refer to below summary of Fleischner criteria recommendations for follow-up of incidental CT nodules (Karen Smith, Guidelines for management of small pulmonary nodules detected on CT scans: A statement from the Fleischner Society, Radiology 237: [phone].) Note: newly detected indeterminate nodule in persons 35 years of age or older. * Low risk patients: minimal or absent history of smoking and/or other known risk factors * high risk patients: history of smoking or of other known risk factors (e.g. first degree relative with lung cancer, or exposure to asbestos, radon, uranium) * if a nodule up to 8 mm is partly solid or is ground glass further follow-up is required after 24 months to exclude possible slow growing adenocarcinoma (SHIRA) SUBSOLID NODULES Solitary pure ground-glass nodule * nodule size <6 mm - no CT follow-up required * nodule size >=6 mm - follow-up CT at 6-12 months, then every 2 years until 5 years The above report was generated using voice recognition software. It may contain grammatical, syntax or spelling errors. Electronically signed by: Devin Ghotra M.D. 10/30/2016 2:46 PM Dictated Date/Time: 10/30/2016 2:37 PM
== END | disposition home or self-care (01) ==
LOC: C.CTS 14:12
PROVIDERS: ATTEND Nurse Practitioner Adult Health
DX: R06.02 Shortness of breath (principal); R93.8 Abnormal findings on diagnostic imaging of other specified body structures; Z87.891 Personal history of nicotine dependence

== ENCOUNTER → 2016-11-21 | Outpatient (CLI) | payer OTHER ==
--- NOTE | 2016-11-21 09:21 | DIAGNOSTIC IMAGING REPORT ---
ABDOMEN FOR HERNIA CLINICAL HISTORY: Midline epigastric mass. COMPARISON STUDY: CT of the abdomen and pelvis April 20, 2008. FINDINGS: Note is made of a reducible fat-containing upper abdominal midline ventral hernia. IMPRESSION: Reducible fat-containing upper abdominal midline ventral hernia which reflects the palpable abnormality. Electronically signed by: Mart Drew M.D. 11/21/2016 9:19 AM Dictated Date/Time: 11/21/2016 9:08 AM
== END | disposition home or self-care (01) ==
PROVIDERS: ATTEND Nurse Practitioner Adult Health
DX: K43.9 Ventral hernia without obstruction or gangrene (principal)

== ENCOUNTER → 2016-12-02 | Outpatient (CLI) | payer OTHER ==
--- NOTE | 2016-12-02 10:50 | DIAGNOSTIC IMAGING REPORT ---
PET/CT CLINICAL HISTORY: 61-year-old female with history of single pulmonary nodule (focal groundglass opacity in the right upper lobe abutting the major fissure measuring up to 10 mm), history of cholecystectomy, , and bilateral salpingo-oophorectomy. TECHNIQUE: PET/CT was performed from the base of the skull through the pelvis following the intravenous administration of 13.3 mCi of F18-FDG. Non-contrast CT imaging was performed over the same range without breath-hold for attenuation correction of PET images and anatomic correlation, but not for primary interpretation as it is not of standard diagnostic quality. CT DOSE: 1156.30 mGy.cm. COMPARISON: Chest CT from 10/30/2016. FINDINGS: HEAD AND NECK: There is no FDG-avid disease or significant lymphadenopathy in the imaged portions of the head and the neck. CHEST: No axillary, mediastinal, or hilar lymphadenopathy. Main pulmonary artery top normal in size. Suggestion of mild multichamber enlargement of the heart. No pericardial or pleural effusion. Dependent changes in the lungs likely atelectasis. Apical predominant emphysema. Previously noted right upper lobe opacity is unchanged in size and appearance and measuring approximately 10 mm (see series 2 image 86). No increased FDG avidity in this region. This nodule demonstrates a max SUV of 0.7 in comparison to surrounding normal lung which demonstrates a max SUV of 0.9. ABDOMEN/PELVIS: Below the diaphragm, diffuse bowel FDG avidity noted. No convincing evidence of FDG avid mass lesion or lymphadenopathy. Post surgical changes of cholecystectomy. Globular non-FDG avid fundal uterus suggests the presence of a fibroid. No adnexal masses. Diverticulosis of the sigmoid colon. MUSCULOSKELETAL: There is no FDG-avid or destructive bone lesion. Degenerative changes noted with associated mild FDG avidity. IMPRESSION: 1. Unchanged appearance of the 10 mm right upper lobe subsolid pulmonary nodule without demonstrable FDG avidity. Follow-up per [employer] Society 2017 recommendations below. Please refer to below summary of Fleischner Society 2017 recommendations for follow-up of incidental CT nodules (Karen Smith et al. Guidelines for management of incidental pulmonary nodules detected on CT images: From the Fleischner Society 2017. Radiology 2017; 284: 228-243.) SOLID NODULES Single nodule; size <6 mm * Low risk patients: No routine follow-up * High risk patients: Optional CT at 12 months Single nodule; size 6-8 mm * Low risk patients: CT at 6-12 months, then consider CT at 18-24 months * High risk patients: CT at 6-12 months, then at 18-24 months Single nodule; size >8 mm * Either low or high risk patients: Considered CT at 3 months, PET/CT, or tissue sampling Multiple nodules; size <6 mm * Low risk patients: No routine follow up * High risk patients: Optional CT at 12 months Multiple nodules; size 6-8 mm * Low risk patients: CT at 3-6 months, then consider CT at 18-24 months * High risk patients: CT at 3-6 months, then at 18-24 months Multiple nodules; size >8 mm * Low risk patients: CT at 3-6 months, then consider at 18-24 months * High risk patients: CT at 3-6 months, then at 18-24 months Note: These guidelines apply to incidental nodules. These guidelines did not apply to patients younger than 35 years, immunocompromised patients, or patients with cancer. * Low risk patients: Minimal or absent history of smoking and/or other known risk factors * High risk patients: History of smoking, exposure to other carcinogens, emphysema, fibrosis, upper lobe location, family history of lung cancer, etc. * If a nodule up to 8 mm is partly solid or is ground glass further follow-up is required after 24 months to exclude possible slow growing adenocarcinoma SUBSOLID NODULES Single ground-glass nodule * Nodule size < 6 mm: No routine follow-up * Nodule size > or = 6 mm: CT at 6-12 months to confirm persistence, then CT every 2 years until 5 years Single part-solid nodule * Nodule size < 6 mm: No routine follow-up * Nodules size > or = 6 mm: CT at 3-6 months to confirm persistence. If unchanged and solid component remains < 6 mm, annual CT should be performed for 5 years Multiple nodules * Nodule size < 6 mm: CT at 3-6 months. If stable, consider CT at 2 and 4 years. * Nodules size > or = 6 mm: CT at 3-6 months. Subsequent management based on the most suspicious nodule(s) Electronically signed by: Jay Bueno M.D. 12/02/2016 10:49 AM Dictated Date/Time: 12/02/2016 9:53 AM
== END | disposition home or self-care (01) ==
LOC: C.PET 06:58
PROVIDERS: ATTEND Internal Medicine Pulmonary Disease
DX: R91.1 Solitary pulmonary nodule (principal)

== ENCOUNTER → 2016-12-03 | Outpatient (CLI) | payer OTHER ==
[~2016-12-03] MED LIST changes: +ATROPINE SULFATE 0.1 MG/ML 5ML SYR ONE; +DOBUTamine 500MG / 250ML D5W ONE; +METOPROLOL TARTRATE 1 MG/ML VIAL ONE
--- NOTE | 2016-12-03 13:15 | DOBUTAMINE ECHO ---
*NOTICE TO RECEIVING DEMOCRAT AGENCY This information is strictly Confidential and protected under [place] law. [place] law prohibits you from making any further disclosure of this information unless further disclosure is expressly permitted by the written consent of the person to whom it pertains or is authorized by law. A general authorization for the release of medical or other information is not sufficient for this purpose. Hospital accepts no responsibility if the information is made available to any other person, INCLUDING THE PATIENT. Interpretation Summary * Name: BHUMI COLON Study Date: 12/03/2016 09:44 AM BP: 145/82 mmHg * Patient Location: [facility] HR: 60 * : 1955 (M/d/yyyy) Gender: Female Height: 67 in * Age: 61 yrs Ethnicity: CA Weight: 330 lb * Ordering Physician: Satish Curry * Referring Physician: Satish Curry * Performed By: Olga Benoit RDCS * * Reason For Study: SOB, HTN, OBESITY * BSA: 2.5 m2 * Mild concentric left ventricular hypertrophy. * Class 1 left ventricular diastolic dysfunction. * Trace mitral, tricuspid, and pulmonic regurgitation. * No significant valvular abnormalities. * Normal right ventricular systolic function. * Normal estimated right ventricular systolic and central venous pressures. * STRESS STUDY: Normal pharmacologic stress echocardiogram. No echocardiographic or ECG evidence of myocardial ischemia having achieved heart rate adequate for diagnostic purposes. * The left ventricular ejection fraction increases normally with stress. The left ventricular end-systolic cavity size reduces post-stress (normal response). The left ventricular wall motion with stress is normal. * The stress ECG response was normal Procedure Details * DOBUTAMINE ECHO, CPT#29540 * A contrast injection of Definity was performed to improve assessment of LV function. * Contrast was injected into an intravenous site in the right arm. * One vial of Definity ultrasound contrast was diluted in normal saline to a total volume of 10 ml. A total of '7' ml of solution was administered during imaging. * Lot # [id number] of Definity utilized for procedure. * Expiration date JAN 08. * The attending nurse who injected the contrast agent was JAVI BROOKS RN. Left Ventricle * The left ventricle is normal in size. * There is mild concentric left ventricular hypertrophy. * Ejection Fraction = 55-60%. * A full diastolic examination was done with clinical findings of Class I diastolic dysfunction. * The left ventricular ejection fraction increases normally with stress. The left ventricular end-systolic cavity size reduces post-stress (normal response). The left ventricular wall motion with stress is normal. * Left ventricular systolic function is normal. * Resting wall motion: Normal. Stress wall motion: Appropriate increase in Left ventricular systolic function and decrease in cavity size. No stress induced segmental wall motion abnormalities. Right Ventricle * The right ventricle is normal in size and function. Atria * The left atrial size is normal. * Right atrial size is normal. * No ASD detected; PFO is not assessed. Mitral Valve * The mitral valve is normal. * There is no mitral valve stenosis. * There is trace mitral regurgitation. Tricuspid Valve * The tricuspid valve is normal. * There is no tricuspid stenosis. * There is trace tricuspid regurgitation. * Right ventricular systolic pressure is normal. Aortic Valve * The aortic valve opens well. * The aortic valve is trileaflet. * Aortic stenosis is absent. Pulmonic Valve * The pulmonic valve is not well visualized. * The pulmonary valve is inadequately visualized, but the Doppler data is adequate for interpretation. * Pulmonic stenosis is absent. * Trace pulmonic valvular regurgitation. Great Vessels * The aortic root is normal size. * Normal diameter of the inferior vena cava. Pericardium * There is no pericardial effusion. Stress Parameters * Normal baseline electrocardiogram. * The stress ECG response was normal * Rest heart rate was '60' BPM. * Rest blood pressure was '145/82' * Maximum heart rate achieved was 141 bpm. * Maximum heart rate was 88 % of maximum age-predicted heart rate. * Maximum blood pressure was '145/82' * Maximum Dobutamine infusion rate was '50' mcg/kg/min. * Dobutamine infusion was terminated due to achieving target heart rate * A total of 5 mg of IV Metoprolol was administered to reverse Dobutamine-induced tachycardia. * The patient did not exhibit any symptoms during drug infusion. MMode 2D Measurements and Calculations IVSd 1.2 cm IVSs 1.7 cm LVIDd 5.3 cm LVIDs 3.9 cm LVPWd 1.3 cm LVPWs 1.8 cm IVS/LVPW 0.93 FS 26.8 % EDV(Teich) 134.3 ml ESV(Teich) 64.6 ml EF(Teich) 51.9 % EDV(cubed) 147.4 ml ESV(cubed) 57.8 ml EF(cubed) 60.8 % % IVS thick 39.1 % % LVPW thick 33.7 % LV mass(C)d 280.6 grams LV mass(C)dI 112.2 grams/m\S\2 LV mass(C)s 285.3 grams LV mass(C)sI 114.0 grams/m\S\2 SV(Teich) 69.7 ml SI(Teich) 27.9 ml/m\S\2 SV(cubed) 89.6 ml SI(cubed) 35.8 ml/m\S\2 Ao root diam 3.2 cm Ao root area 7.8 cm\S\2 LA dimension 3.6 cm LA/Ao 1.1 LVAd ap4 33.8 cm\S\2 LVLd ap4 8.0 cm EDV(MOD-sp4) 115.9 ml EDV(sp4-el) 120.7 ml LVAs ap4 21.5 cm\S\2 LVLs ap4 6.8 cm ESV(MOD-sp4) 57.9 ml ESV(sp4-el) 57.3 ml EF(MOD-sp4) 50.0 % EF(sp4-el) 52.5 % LVAd ap2 33.6 cm\S\2 LVLd ap2 7.9 cm EDV(MOD-sp2) 114.6 ml EDV(sp2-el) 121.7 ml LVAs ap2 21.3 cm\S\2 LVLs ap2 6.9 cm ESV(MOD-sp2) 55.1 ml ESV(sp2-el) 55.7 ml EF(MOD-sp2) 51.9 % EF(sp2-el) 54.3 % LVLd %diff -2.27 % EDV(MOD-bp) 115.9 ml LVLs %diff 0.90 % ESV(MOD-bp) 57.1 ml EF(MOD-bp) 50.8 % SV(MOD-sp4) 58.0 ml SI(MOD-sp4) 23.2 ml/m\S\2 SV(MOD-sp2) 59.5 ml SI(MOD-sp2) 23.8 ml/m\S\2 SV(MOD-bp) 58.9 ml SI(MOD-bp) 23.5 ml/m\S\2 SV(sp4-el) 63.4 ml SI(sp4-el) 25.3 ml/m\S\2 SV(sp2-el) 66.0 ml SI(sp2-el) 26.4 ml/m\S\2 Doppler Measurements and Calculations MV E max javi 72.8 cm/sec MV A max javi 87.3 cm/sec MV E/A 0.83 MV dec time 0.27 sec Ao V2 max 154.1 cm/sec Ao max PG 9.5 mmHg Ao max PG (full) 4.3 mmHg LV V1 max PG 5.2 mmHg LV V1 max 113.8 cm/sec TR max javi 227.4 cm/sec
== END | disposition home or self-care (01) ==
LOC: C.CPL 09:41
PROVIDERS: ATTEND Internal Medicine Pulmonary Disease
DX: R93.8 Abnormal findings on diagnostic imaging of other specified body structures (principal); I10 Essential (primary) hypertension; E66.9 Obesity, unspecified; R91.1 Solitary pulmonary nodule

== ENCOUNTER → 2017-01-18 | Outpatient (CLI) | payer OTHER ==
[~2017-01-18] MED LIST changes: -ATROPINE SULFATE 0.1 MG/ML 5ML SYR ONE; -DOBUTamine 500MG / 250ML D5W ONE; +GLC/500 PO; -METOPROLOL TARTRATE 1 MG/ML VIAL ONE; +MULT-1027 PO
[2017-01-18 13:05] LABS: MEAN CORPUSCULAR HGB CONC 31.7 g/dl (32-36)
[2017-01-18 13:19] LABS: HEMATOCRIT 42.9 % (37-47); MEAN CELL VOLUME 89.4 fL (80-100); MEAN CORPUSCULAR HEMOGLOBIN 28.3 pg (25-34); WHITE BLOOD COUNT 7.13 K/uL (4.8-10.8)
[2017-01-18 13:23] LABS: BLOOD UREA NITROGEN 11 mg/dl (7-18); BUN/CREATININE RATIO 14.3 (10-20); CALCIUM 8.9 mg/dl (8.5-10.1); CARBON DIOXIDE 28 mmol/L (21-32); CHLORIDE 107 mmol/L (98-107); GLUCOSE 109 mg/dl (70-99); POTASSIUM 3.7 mmol/L (3.5-5.1); SODIUM 140 mmol/L (136-145)
[2017-01-18 14:14] LABS: BASO % 0.3 %; BASO ABS # 0.02 K/uL (0-0.2); COMPLETE YES; EOS % 3.1 %; IG% 0.3 %; LYMPH % 35.1 %; MONO % 5.9 %; NEUT % 55.3 %; PLATELET COUNT 155 K/uL (130-400); PLT ESTIMATE NORMAL
== END | disposition home or self-care (01) ==
LOC: C.LABBC 11:19
PROVIDERS: ATTEND Surgery
DX: Z01.812 Encounter for preprocedural laboratory examination (principal); K43.2 Incisional hernia without obstruction or gangrene

== ENCOUNTER → 2017-02-03 | Day surgery (SDC) | payer OTHER ==
[2017-01-21 15:32] VITALS: BMI 51.0
[~2017-02-03] VITALS: Ht 170.2 cm; Wt 147.7 kg
[~2017-02-03] MED LIST changes: +ATROPINE SULFATE 0.1 MG/ML 5ML SYR IV PRN; +BUPIVACAINE/EPINEPHRINE 0.5% MPF 1:200,000 30 ML VIAL ONE; +CEFAZOLIN 3000MG IV PUSH 15 ML IV SCH; -CHOL1000 PO; +DEXAMETHASONE SOD INJ 4 MG/ML VIAL ONE; +EpHEDrine SULFATE INJ 50 MG/ML AMP IV PRN; +FENTANYL CITRATE INJ 50 MCG/1 ML 2 ML VIAL ONE; +FLUMAZENIL 0.1 MG/1 ML 10 ML VIAL IV PRN; +GLYCOPYRROLATE INJ 0.2 MG/ML VIAL ONE; +HYDR-5688 PO; +HYDROCODONE/ACETAMOPHEN 5/325MG TAB PO PRN; +HYDROmorphone INJ 0.5 MG/0.5 ML SYR ONE; +HYDROmorphone INJ 1 MG/ML SYR IV PRN; +LABETALOL HCL IV 5 MG/ML 20ML IV PRN; +LACTATED RINGER'S 1000ML 1,000 ML IV SCH; +LIDOCAINE HCL 2% 2 ML VIAL (20MG/ML) ONE; +MIDAZOLAM HCL 1 MG/ML 2ML VIAL ONE; +NALOXONE HCL 0.4 MG/1 ML VIAL/CARP IV PRN; +NEOSTIGMINE METHYLSULFATE 5 MG/5 ML SYR ONE; +ONDANSETRON INJ 2 MG/ML 2 ML VIAL IV PRN; +ONDANSETRON INJ 2 MG/ML 2 ML VIAL ONE; -OXYC-57 PO; +PROMETHAZINE HCL INJ 12.5 MG in SODIUM CHLORIDE 0.9% 50ML 50 ML IV PRN; +PROPOFOL IV EMULSION 10 MG/ML 20 ML VIAL IV ONE; +SODIUM CHLORIDE 0.9% 1000ML 1,000 ML IV SCH; -VORT1TAB3 PO
[2017-02-03 05:45] VITALS: BP 136/69; PULSE 74; TEMP 36.8; O2SAT 97; BMI 51.0
[2017-02-03 05:59] VITALS: BP 136/69; PULSE 74; TEMP 36.8; O2SAT 97; Ht 170.2 cm; Wt 147.7 kg
--- NOTE | 2017-02-03 06:53 | History & Physical Bridge Note ---
H&P Re-Evaluation Bridge Note: I have examined the patient, reviewed the History & Physical and in the interval since the performance of the History & Physical I have noted the following changes of clinical significance: No changes noted
--- NOTE | 2017-02-03 07:59 | [facility] Operative Report ---
Operative Report Operative Date Feb 03, 2017. Pre-Operative Diagnosis Incisional Hernia Post-Operative Diagnosis Incisional Hernia Procedure(s) Performed Open Incisional Hernia Repair with mesh Surgeon Dr. Rhodes Management Consultant Surgeon(s) Ingrid Bhakta PA-C Estimated Blood Loss 5ml Findings 3 cm incisional hernia defect Specimens none per surgeon Anesthesia get Complication(s) None Disposition Recovery Room / PACU Description of Procedure After informed consent was obtained the patient was taken to the operating room and placed in the supine position. The abdomen was sterilely prepped and draped in usual fashion. A supraumbilical incision through her old scar was made with a 15 blade scalpel and carried down through the soft tissue using electrocautery. We immediately encountered a thickened hernia sac. I opened it and excised it exposing an approximate 3 cm hernia defect. We were able to grab the fascial edges with Allis clamps and elevate it. I performed a finger sweep to ensure there were no adhesions under the fascia. I then used an 8 cm V - patch mesh as an underlay. It was placed such that the anti-adhesive surface was facing the bowel. It was flattened out and pulled up to the anterior abdominal wall using the mesh arms. The arms were then secured to fascia using 4 point fixation on either side with 0 Ethibond. The mesh laid nice and flat and tension free. I did close the fascia over the top of the mesh again using 0 Ethibond in simple interrupted fashion. The wound was thoroughly irrigated and closed using 2-0 Vicryl and 4-0 Monocryl. Marcaine was used for postoperative analgesia and skin glue used as a dressing. An abdominal binder was placed. The patient was awaken extubated and transferred recovery in stable condition I attest to the content of the Intraoperative Record and any orders documented therein. Any exceptions are noted below.
--- NOTE | 2017-02-03 08:15 | Discharge Instructions ---
Discharge Instructions Date of Service Feb 03, 2017. Admission Reason for Admission: Incisional Hernia Discharge Discharge Diagnosis / Problem: Incisional Hernia Discharge Goals Goal(s): Decrease discomfort, Improve function Activity Recommendations Activity Limitations: as noted below Lifting Limitations: no more than 10 pounds Exercise/Sports Limitations: until after follow-up appointment May Resume Sexual Activity: after follow-up appointment Shower/Bathe: tomorrow Driving or Machine Use: resume 1 day after discharge . Instructions / Follow-Up Instructions / Follow-Up Please follow-up with Dr. Rhodes in the General Surgery Office in 1-2 weeks. Please call the office at [phone] to make a follow-up appointment if you do not have one already. Please call the office with any questions or concerns. Current Hospital Diet Patient's current hospital diet: Discharge Diet Recommended Diet: Regular Diet Procedures Procedures Performed: Open Incisional Hernia Repair with mesh Pending Studies Studies pending at discharge: no Medical Emergencies . Who to Call and When: Medical Emergencies: If at any time you feel your situation is an emergency, please call 911 immediately. . Non-Emergent Contact Non-Emergency issues call your: Primary Care Provider, Surgeon Call Non-Emergent contact if: temperature is above 101.5, your pain is not controlled, wound has increased drainage, wound has increased redness . "Provider Documentation" section prepared by Ingrid Bhakta. . VTE Core Measure Inpt VTE Proph given/why not?: SCD's [place] Drug Monitoring Program Search Results: patient reviewed within database, no issues identified
--- NOTE | 2017-02-03 08:50 | Anesthesiology Progress Note ---
Anesthesia Post Op Note Date & Time Feb 03, 2017 at 08:50 Vital Signs Pain Intensity: 6 Vital Signs Past 12 Hours Date Time Temp Pulse Resp B/P (MAP) Pulse Ox O2 Delivery O2 Flow Rate FiO2 02/03/17 08:40 61 14 134/76 96 Room Air 02/03/17 08:30 64 26 144/81 98 Oxymask 02/03/17 08:20 66 24 152/81 100 Oxymask 02/03/17 08:12 36.4 78 18 180/87 100 Oxymask 02/03/17 05:59 36.8 74 20 136/69 (91) 97 Room Air 02/03/17 05:45 36.8 74 20 136/69 (91) 97 Room Air Notes Mental Status: alert / awake / arousable, participated in evaluation Pt Amnestic to Procedure: Yes Nausea / Vomiting: adequately controlled Pain: adequately controlled Airway Patency, RR, SpO2: stable & adequate BP & HR: stable & adequate Hydration State: stable & adequate Anesthetic Complications: no major complications apparent
[2017-02-03 09:10] VITALS: BP 126/85; PULSE 66; TEMP 36.4; O2SAT 93
[2017-02-03 09:40] VITALS: BP 140/87; PULSE 57; O2SAT 94
[2017-02-03 10:10] VITALS: BP 117/63; PULSE 76; TEMP 36.4; O2SAT 93
== END | disposition home or self-care (01) ==
LOC: C.ACU 05:17
PROVIDERS: ATTEND Surgery
DX: K43.2 Incisional hernia without obstruction or gangrene (principal); J44.9 Chronic obstructive pulmonary disease, unspecified; G47.33 Obstructive sleep apnea (adult) (pediatric); I10 Essential (primary) hypertension; E11.9 Type 2 diabetes mellitus without complications; E66.01 Morbid (severe) obesity due to excess calories; Z68.43 Body mass index [BMI] 50.0-59.9, adult

== ENCOUNTER → 2017-02-25 | Outpatient (CLI) | payer OTHER ==
[~2017-02-25] VITALS: Ht 170.2 cm; Wt 145.5 kg
[~2017-02-25] MED LIST changes: -ATROPINE SULFATE 0.1 MG/ML 5ML SYR IV PRN; -BUPIVACAINE/EPINEPHRINE 0.5% MPF 1:200,000 30 ML VIAL ONE; -CEFAZOLIN 3000MG IV PUSH 15 ML IV SCH; -DEXAMETHASONE SOD INJ 4 MG/ML VIAL ONE; -EpHEDrine SULFATE INJ 50 MG/ML AMP IV PRN; -FENTANYL CITRATE INJ 50 MCG/1 ML 2 ML VIAL ONE; -FLUMAZENIL 0.1 MG/1 ML 10 ML VIAL IV PRN; -GLYCOPYRROLATE INJ 0.2 MG/ML VIAL ONE; -HYDR-5688 PO; -HYDROCODONE/ACETAMOPHEN 5/325MG TAB PO PRN; -HYDROmorphone INJ 0.5 MG/0.5 ML SYR ONE; -HYDROmorphone INJ 1 MG/ML SYR IV PRN; -LABETALOL HCL IV 5 MG/ML 20ML IV PRN; -LACTATED RINGER'S 1000ML 1,000 ML IV SCH; -LIDOCAINE HCL 2% 2 ML VIAL (20MG/ML) ONE; -MIDAZOLAM HCL 1 MG/ML 2ML VIAL ONE; -NALOXONE HCL 0.4 MG/1 ML VIAL/CARP IV PRN; -NEOSTIGMINE METHYLSULFATE 5 MG/5 ML SYR ONE; -ONDANSETRON INJ 2 MG/ML 2 ML VIAL IV PRN; -ONDANSETRON INJ 2 MG/ML 2 ML VIAL ONE; -PROMETHAZINE HCL INJ 12.5 MG in SODIUM CHLORIDE 0.9% 50ML 50 ML IV PRN; -PROPOFOL IV EMULSION 10 MG/ML 20 ML VIAL IV ONE; -SODIUM CHLORIDE 0.9% 1000ML 1,000 ML IV SCH
[2017-02-25 14:08] VITALS: BP 145/79; PULSE 105; Ht 170.2 cm; Wt 145.5 kg
== END | disposition home or self-care (01) ==
LOC: C.NEUR 12:03
PROVIDERS: ATTEND Internal Medicine Pulmonary Disease
DX: G47.30 Sleep apnea, unspecified (principal); E66.9 Obesity, unspecified; Z68.43 Body mass index [BMI] 50.0-59.9, adult

== ENCOUNTER → 2017-05-05 | Outpatient (CLI) | payer OTHER ==
--- NOTE | 2017-05-05 09:45 | DIAGNOSTIC IMAGING REPORT ---
(CHEST) THORAX WITHOUT CLINICAL HISTORY: 61 years-old Female presenting with R91.1 Solitary pulmonary nodule 6 month f/u CT [id number]. TECHNIQUE: Multidetector CT imaging of the chest was performed without the use of intravenous contrast. IV contrast: None. A dose lowering technique was used consistent with the principles of ALARA (as low as reasonably achievable). COMPARISON: 10/30/2016. CT DOSE (mGy.cm): The estimated cumulative dose is 1151.38 mGy.cm. FINDINGS: Blood Bank Calendar Control Clerk topogram: Unremarkable. On soft tissue windows, normal thyroid and thoracic inlet. No axillary, supraclavicular, or mediastinal lymphadenopathy. Evaluation of the vanessa limited without intravenous contrast. Atherosclerosis of the aorta. Minimal coronary artery calcification at the origin of the right main coronary artery. Normal heart size. Trace pericardial effusion. No pleural effusion. Status post cholecystectomy. On lung windows, persistent solid fissural 12 mm nodule in the posterior right upper lobe along the right major fissure (series 4 image 150). This is not significantly changed in size from prior when remeasured at a comparable level. Mild apical predominant centrilobular and paraseptal emphysema. No new nodule. Minimal bronchial wall thickening. On bone windows, degenerative changes of the spine. Osteopenia. IMPRESSION: 1. Essentially stable appearance of the solid fissural 12 mm nodule. No new nodule. Lack of FDG avidity on PET/CT from 12/02/2016 suggests against neoplastic etiology. Follow-up to be considered as clinically indicated. 2. Emphysema. Please refer to below summary of Fleischner Society 2017 recommendations for follow-up of incidental CT nodules (H Sarah et al. Guidelines for management of incidental pulmonary nodules detected on CT images: From the Fleischner Society 2017. Radiology 2017; 284: 228-243.) SOLID NODULES Single nodule; size < 6 mm * Low risk patients: No routine follow-up * High risk patients: Optional CT at 12 months Single nodule; size 6-8 mm * Low risk patients: CT at 6-12 months, then consider CT at 18-24 months * High risk patients: CT at 6-12 months, then at 18-24 months Single nodule; size > 8 mm * Either low or high risk patients: Considered CT at 3 months, PET/CT, or tissue sampling Multiple nodules; size < 6 mm * Low risk patients: No routine follow up * High risk patients: Optional CT at 12 months Multiple nodules; size 6-8 mm * Low risk patients: CT at 3-6 months, then consider CT at 18-24 months * High risk patients: CT at 3-6 months, then at 18-24 months Multiple nodules; size > 8 mm * Low risk patients: CT at 3-6 months, then consider at 18-24 months * High risk patients: CT at 3-6 months, then at 18-24 months Note: These guidelines apply to incidental nodules. These guidelines do not apply to patients younger than 35 years, immunocompromised patients, or patients with cancer. * Low risk patients: Minimal or absent history of smoking and/or other known risk factors * High risk patients: History of smoking, exposure to other carcinogens, emphysema, fibrosis, upper lobe location, family history of lung cancer, etc. * If a nodule up to 8 mm is partly solid or is ground glass, further follow-up is required after 24 months to exclude possible slow growing adenocarcinoma. SUBSOLID NODULES Single ground-glass nodule * Nodule size < 6 mm: No routine follow-up * Nodule size > or = 6 mm: CT at 6-12 months to confirm persistence, then CT every 2 years until 5 years Single part-solid nodule * Nodule size < 6 mm: No routine follow-up * Nodules size > or = 6 mm: CT at 3-6 months to confirm persistence. If unchanged and solid component remains < 6 mm, annual CT should be performed for 5 years Multiple nodules * Nodule size < 6 mm: CT at 3-6 months. If stable, consider CT at 2 and 4 years. * Nodules size > or = 6 mm: CT at 3-6 months. Subsequent management based on the most suspicious nodule(s) Electronically signed by: Jay Bueno M.D. 05/05/2017 9:43 AM Dictated Date/Time: 05/05/2017 9:32 AM
== END | disposition home or self-care (01) ==
LOC: C.CTS 09:15
PROVIDERS: ATTEND Nurse Practitioner Adult Health
DX: R91.1 Solitary pulmonary nodule (principal); J43.9 Emphysema, unspecified

== ENCOUNTER → 2017-08-11 | Outpatient (CLI) | payer OTHER ==
[2017-08-11 14:03] LABS: HEMOGLOBIN A1C 5.7 % (4.5-5.6)
[2017-08-11 14:55] LABS: ALBUMIN 3.2 gm/dl (3.4-5.0); ALKALINE PHOSPHATASE 83 U/L (45-117); ALT/SGPT 27 U/L (12-78); AST/SGOT 19 U/L (15-37); BLOOD UREA NITROGEN 14 mg/dl (7-18); CALCIUM 8.6 mg/dl (8.5-10.1); CARBON DIOXIDE 28 mmol/L (21-32); GLUCOSE 97 mg/dl (70-99); SODIUM 140 mmol/L (136-145); TOTAL PROTEIN 7.4 gm/dl (6.4-8.2)
== END | disposition home or self-care (01) ==
LOC: C.LABBC 11:43
PROVIDERS: ATTEND Nurse Practitioner Adult Health
DX: R73.9 Hyperglycemia, unspecified (principal); E88.81 Metabolic syndrome and other insulin resistance; F32.9 Major depressive disorder, single episode, unspecified; K76.0 Fatty (change of) liver, not elsewhere classified; E66.01 Morbid (severe) obesity due to excess calories; R60.9 Edema, unspecified; M19.90 Unspecified osteoarthritis, unspecified site; R53.83 Other fatigue

== ENCOUNTER → 2017-11-05 | Outpatient (CLI) | payer OTHER ==
--- NOTE | 2017-11-05 13:52 | MAMMOGRAPHY REPORT ---
BILATERAL DIGITAL SCREENING MAMMOGRAM TOMOSYNTHESIS WITH CAD: 11/05/2017 CLINICAL HISTORY: Routine screening. TECHNIQUE: The study was acquired using full field digital technology and interpreted from soft copy. Breast tomosynthesis in addition to standard 2D mammography was performed. Current study was also ev aluated with a Computer Aided Detection (CAD) system. COMPARISON: Comparison is made to exams dated: 10/10/2016 mammogram - [facility], mammogram, 09/14/2014 mammogram, 09/13/2013 mammogram, 08/26/2012 mammogram, and 08/22/2011 [facility]. BREAST COMPOSITION: There are scattered areas of fibroglandular density in both breasts. FINDINGS: No suspicious masses, calcifications, or areas of architectural distortion are noted in either breast . There has been no significant interval change compared to prior exams. IMPRESSION: ACR BI-RADS CATEGORY 1: NEGATIVE There is no mammographic evidence of malignancy. A 1 year screening mammogram is recommended.( 019) The patient will receive written notification of the results. Some breast cancers are not detected with mammography. A negative mammographic report should not curtis y biopsy if a clinically suggestive mass is present. Sheryl Schuster M.D. ah/:11/05/2017 08:54:11 [employer] Upholsterer: RT Shashank(Maddy)(M), [facility] letter sent: Normal 1/2 BI-RADS Code: ACR BI-RADS Category 1: Negative
== END | disposition home or self-care (01) ==
LOC: C.MAMM 08:08
PROVIDERS: ATTEND Obstetrics & Gynecology
DX: Z12.31 Encounter for screening mammogram for malignant neoplasm of breast (principal)

== ENCOUNTER → 2017-11-05 | Outpatient (CLI) | payer OTHER ==
--- NOTE | 2017-11-05 08:24 | DIAGNOSTIC IMAGING REPORT ---
(CHEST) THORAX WITHOUT CLINICAL HISTORY: 62 years-old Female presenting with solitary pulmonary nodule follow-up. TECHNIQUE: Multidetector CT imaging of the chest was performed without the use of intravenous contrast. IV contrast: None. A dose lowering technique was used consistent with the principles of ALARA (as low as reasonably achievable). COMPARISON: 04/25/2017. CT DOSE (mGy.cm): The estimated cumulative dose is 1095.60 mGy.cm. FINDINGS: Entry Manager topogram: Unremarkable. On soft tissue windows, normal thyroid and thoracic inlet. Intramammary lymph nodes suspected in the left breast (series 4 image 117), previously excluded from the [id number]. No axillary, supraclavicular, or mediastinal lymphadenopathy. Evaluation of the vanessa limited without intravenous contrast. Atherosclerosis of the aorta. Main pulmonary artery enlarged measuring 3.3 cm in diameter, previously 3.1 cm. Trace aortic valve calcification. Normal heart size. No pericardial or pleural effusion. Cholecystectomy clips. On lung windows, redemonstration of the fissural opacity in the right upper lobe, which has an axial dimension of 14 mm. However, reformatted images demonstrate this as a linear/bandlike abnormality, which is unchanged since 10/30/2016. The morphology does not suggest a discrete nodule. Apical predominant paraseptal and centrilobular emphysematous changes. Dependent groundglass opacity likely atelectasis. Punctate fissural right middle lobe nodule (series 4 image 165) unchanged. Central airways patent. No new focal infiltrate or nodule. No pneumothorax. On bone windows, degenerative changes of the spine. IMPRESSION: 1. Fissural opacity in the right upper lobe has a configuration that is most suggestive of atelectasis or scarring rather than a discrete pulmonary nodule. Reformatted sagittal images best demonstrate this. The finding is unchanged since one year ago. No further follow-up is warranted. 2. Emphysema. 3. Mild enlargement of the main pulmonary artery could suggest pulmonary hypertension. Electronically signed by: Jay Bueno M.D. 11/05/2017 8:22 AM Dictated Date/Time: 11/05/2017 8:12 AM
== END | disposition home or self-care (01) ==
LOC: C.CTS 07:44
PROVIDERS: ATTEND Internal Medicine Pulmonary Disease
DX: R91.1 Solitary pulmonary nodule (principal); J43.9 Emphysema, unspecified

== ENCOUNTER 2020-07-05 05:29 | Inpatient (IN) ==
--- NOTE | 2020-06-23 12:54 | PAT Medication Instructions ---
Medication Instructions Date of Service June 23, 2020 Home Medications Medication Instructions Recorded dextroamphetamine-amphetamine 15 15 mg PO TID #90 tab 04/02/ mg tablet fluticasone 500 mcg-salmeterol 50 1 inh INH BID #60 ea 02/10/ mcg/dose blistr powdr for inhalation CPAP Machine #1 ea 02/23/20 celecoxib 100 mg capsule 100 mg PO BID 14 Days #28 cap 06/19/20 albuterol sulfate 90 mcg/actuation aerosol inhaler 1 puffs INH Q6H PRN bupropion HCl 150 mg tablet,12 hr sustained-release 150 mg PO BID multivitamin 1 cap PO DAILY dextroamphetamine-amphetamine 15 mg tablet 15 mg PO TID fluticasone 500 mcg-salmeterol 50 mcg/dose blistr powdr for inhalation 1 inh INH BID cholecalciferol (vitamin D3) 25 mcg (1,000 unit) capsule 2,000 unit PO DAILY hydrocortisone 1 % topical ointment 1 applic TOPICAL BID PRN nystatin 100,000 unit/gram topical ointment 1 applic TOPICAL BID PRN celecoxib 100 mg capsule 100 mg PO BID hydrochlorothiazide 25 mg PO QAM metformin 1,000 mg PO QAM pantoprazole 20 mg PO QAM ASK your surgeon for instructions celecoxib 100 mg capsule 100 mg PO BID STOP taking 24 hours before surgery hydrocortisone 1 % topical ointment 1 applic TOPICAL BID PRN nystatin 100,000 unit/gram topical ointment 1 applic TOPICAL BID PRN DO NOT take the morning of surgery multivitamin 1 cap PO DAILY dextroamphetamine-amphetamine 15 mg tablet 15 mg PO TID cholecalciferol (vitamin D3) 25 mcg (1,000 unit) capsule 2,000 unit PO DAILY hydrochlorothiazide 25 mg PO QAM metformin 1,000 mg PO QAM Take morning of surgery With a small sip of water, OTHERWISE NOTHING TO EAT OR DRINK AFTER MIDNIGHT: albuterol sulfate 90 mcg/actuation aerosol inhaler 1 puffs INH Q6H PRN (use if needed; please bring with you to hospital day of surgery if possible) bupropion HCl 150 mg tablet,12 hr sustained-release 150 mg PO BID fluticasone 500 mcg-salmeterol 50 mcg/dose blistr powdr for inhalation 1 inh INH BID pantoprazole 20 mg PO QAM Take evening before surgery albuterol sulfate 90 mcg/actuation aerosol inhaler 1 puffs INH Q6H PRN (if needed) bupropion HCl 150 mg tablet,12 hr sustained-release 150 mg PO BID dextroamphetamine-amphetamine 15 mg tablet 15 mg PO TID fluticasone 500 mcg-salmeterol 50 mcg/dose blistr powdr for inhalation 1 inh INH BID Other Notes If you have any questions please call us at [phone] or [phone] or [phone] or [phone]
--- NOTE | 2020-06-27 14:04 | Anesthesiology Consultation ---
Date of Service June 27, 2020 Assessment & Plan (1) Encounter for pre-operative examination: COVID Status: As of 06/27 assessment, patient denies travel to endemic area, known exposure/sick contacts, or symptoms of COVID19. Patient instructed that they and their household members must follow strict social distancing guidelines, wear a mask in public and avoid travel/events/gatherings for 14 days prior to surgery. Preoperative COVID19 testing to be completed prior to surgery per surgeon's arrangements. Patient made aware to self-isolate as much as possible between COVID testing and surgery. Note sent to pulmonary regarding optimization. Per response from Dr. Curry on 07/03/20, "Pt is scheduled to undergo C4-5,C5-6,C6-7 Anterior Cervical Discectomy and Fusion w Dr Way on 07/05/20. Seen by Anesthesia(Joaquín Burgess) on 06/27/20. S/p Percutaneous Lung biopsy for Slowly growing Solitary Pulmonary nodule approximating 2 cm in size. Preliminary path Nodular Amyloidosis. Pt w a remote 30 pack year smoking hx(quit in 2015) and Rxed DAVID. Pt developed pneumothorax post-bx requiring closed tube thoracostomy w complete reexpansion and 48 hr admission (06/07/20-06/09/20) and CT removal. Pre-op CXR shows complete re- expansion. PFTs on 05/10/20 show well-preserved lung function. Pt represents an acceptable mild-moderate surgical risk and is cleared to proceed w Ortho surgery ." Possible uterine cancer: Patient was seen by VENEER DEPARTMENT MANAGER recently for PMB. Bx and US completed. Per note from Dr. Doe on 07/03/20, "Patient is having spine surgery in two days. She called our office last week to c/o PMB x1 month and asked if we can get her in. I had an ultrasound done here last week which showed thickened, hypervascular endometrium. There is not an opportunity to do a D&C Hysteroscopy prior to her spine surgery and she may not be able to tolerate one for some time thereafter, unfortunately, but I was able to offer endometrial biopsy in the office today or tomorrow to get some kind of sampling done before her planned major operation. She is aware that even if we ask for a rojas on the pathology it may not be back prior to her scheduled back operation, and that cancer is very much in the differential diagnosis, as well as the fact that cancer may be detected but cannot be r/o just by the limited sample obtained via office biopsy. Her choice to proceed with spine surgery as scheduled is entirely up to her and her spine surgeon, however there is a real chance that proceeding will cause a delay in either diagnosis or treatment of an endometrial vs uterine cancer. Biopsy today retrieves very little soft tissue leading me to wonder if perhaps there's a solid tissue in the uterus such as a polyp. This still requires D&C Hysteroscopy for diagnosis, and patient is advised that we can either do this davonte *instead of* spine surgery (I can't do a D&C by Friday) or she can let me know how soon after spine surgery she'll be allowed to undergo the D&C and we can schedule that. I'm waiting for her to call me after she d'w her spine surgeon. 30min care today." Chart Review Chart Review: Acceptable Risk for Surgery and Patient seen in Pre Admission Testing Teaching & Discussion Instructed NPO after midnight before surgery, except medications with 15 cc of water. Medication instructions provided according to the PAT guidelines. History Surgery Operation Date: 07/05/20 07:15 Proposed Procedures p C4-C5, C5-C6, C6-C7 Anterior Cervical Discectomy and Fusion, Possible C5 Vertebrectomy, Autograft, Allograft, Spinal Cord Monitoring (MEP, SSEP, EMG, Vocal Cord Monitoring) - Wilmer Way MD Height/Weight Height: 5 ft 7 in Weight: 153 kg Allergies Allergy/AdvReac Type Severity Reaction Status Date / Time No Known Allergies Allergy NONE Verified 07/03/20 09:57 Medications Home Medications Medication Instructions Recorded Confirmed Last Taken albuterol sulfate 90 mcg/actuation 1 puffs INH Q6H PRN 09/08/18 07/03/20 Unknown aerosol inhaler bupropion HCl 150 mg tablet,12 hr 150 mg PO BID 09/08/18 07/03/20 Unknown sustained-release multivitamin 1 cap PO DAILY 09/08/18 07/03/20 Unknown dextroamphetamine-amphetamine 15 15 mg PO TID #90 tab 04/02/19 07/03/20 Unknown mg tablet fluticasone 500 mcg-salmeterol 50 1 inh INH BID #60 ea 02/11/20 07/03/20 Unknown mcg/dose blistr powdr for inhalation CPAP Machine #1 ea 02/23/20 07/03/20 Unknown cholecalciferol (vitamin D3) 25 2,000 unit PO DAILY cap 03/28/20 07/03/20 Unknown mcg (1,000 unit) capsule hydrocortisone 1 % topical ointment 1 applic TOPICAL BID PRN g 04/25/20 07/03/20 Unknown nystatin 100,000 unit/gram topical 1 applic TOPICAL BID PRN g 04/25/20 07/03/20 Unknown ointment celecoxib 100 mg capsule 100 mg PO BID 14 Days #28 cap 06/19/20 07/03/20 Unknown hydrochlorothiazide 25 mg PO QAM 06/23/20 07/03/20 Unknown metformin 1,000 mg PO QAM 06/23/20 07/03/20 Unknown pantoprazole 20 mg PO QAM 06/23/20 07/03/20 Unknown Past Medical History Medical History Allergic rhinitis Asthma Follows with Dr. Curry. Per PFTs 05/10/2020, "borderline proportional reduction in FEV1 and FVC with normal ratio. No change with bronchodilators. Lung volumes and DLCO normal. No change compared to 09/10 in eduardo, lung volumes better." Chronic back pain COPD (chronic obstructive pulmonary disease) Very rare rescue inhaler use. Degenerative disc disease Diabetes mellitus, type 2 Diverticular disease Frequent falls GERD (gastroesophageal reflux disease) H/O impacted cerumen Morbid obesity Nocturnal hypoxemia Pneumothorax after biopsy 06/07/20. S/P chest tube insertion. Sleep apnea cpap Solitary pulmonary nodule Exercise / Class Metabolic Activity III < 4 Walking/Shop/Light housework (+SOB with ambulation, uses can or walker, denies any chest pain) Past Family History Family History Father Lung cancer Mother Breast cancer Denies family history of Colon cancer Ovarian cancer Prostate cancer Myocardial infarction Past Surgical History Surgical History H/O oral surgery History of colonoscopy History of salpingo-oophorectomy S/P section S/P cholecystectomy S/P hernia repair Past Anesthesia History No Hx of Anesthesia Complications and No Family Hx of Anesthesia Complications Pt reports some issue with C/S with "shock" afterward, unsure of details, was 30+ yrs ago. History of PONV No Hx of PONV and No Hx of Motion Sickness Social History Smoking Status: Former smoker Do You Dip or Chew Tobacco: No Smoking End Date: quit - 2015 Hx Alcohol Use: No Hx Substance Use: No substance use type: does not use Review of Systems Pt denies any recent chest pain, palpitations, cough, fever, URI, or uncontrolled acid reflux. +increased SOB over the past year, is following with pulmonary Physical Exam Vital Signs BP: 140/80 P: 88bpm SPO2: 98% RA T: 97.7 F R: 16 Constitutional + morbidly obese ENMT Mouth: no dental restorations, no chipped teeth and no loose teeth Thyromental Distance: > or= 3.5 Finger Breadths Mallampati Class: I Neck + short neck and + limited neck extension (mildly) Respiratory normal respiratory effort, lungs clear to auscultation Cardiovascular Rate/Rhythm: regular rate and regular rhythm Heart Sounds: no murmur Extremities: + edema (b/l pedal, at baseline per pt) Testing Laboratory Results Blood Type O Positive 06/27/20 14:20 Antibody Screen NEGATIVE 06/27/20 14:20 06/14/20 WBC: 6.85 H/H: 14.5/44.2 PLATELETS: 200 SODIUM: 138 POTASSIUM: 4.0 CHLORIDE: 104 CO2: 31 BUN: 13 CREATININE: 1.06 GLUCOSE: 87 06/27/20 PT: 9.625.2 PTT: 0.9 INR: Electrocardiogram Date: 06/27/20 Findings: + NSR @ (84bpm) No significant change compared to EKG from 08/22/2016. Chest X-Ray Date: 06/27/20 FINDINGS: Lung volumes are normal. There is no pneumothorax or pleural effusion. Emphysema is present. 1.9 cm right midlung nodule corresponds to the right upper lobe nodule on CT of April 24, 2020. Cardiomediastinal silhouette is stable. Appearance of the chest is unchanged. IMPRESSION: 1. No acute cardiopulmonary findings. 2. Redemonstration of the indeterminate 1.9 cm right upper lobe nodule, better depicted on chest CT of April 24, 2020. 3. Emphysema. CXR repeated as pt had interval pneumothorax requiring chest tube placement since 04/24/20 CT.. Pulmonary Function Test Date: 05/10/20 Findings: + FEV1 pre (2.62) and + FEV1 post (2.52) Borderline proportional reduction in FEV1 and FVC with normal ratio. No change with bronchodilators. Lung volumes and DLCO normal. No change compared to 09/10 in eduardo -lung volumes better.
--- NOTE | 2020-06-27 14:56 | XRay Report ---
XR chest Pre-admission PA/Lat CLINICAL HISTORY: Preoperative evaluation. COMPARISON STUDY: Chest CT April 24, 2020. FINDINGS: Lung volumes are normal. There is no pneumothorax or pleural effusion. Emphysema is present . 1.9 cm right midlung nodule corresponds to the right upper lobe nodule on CT of April 24, 2020. C ardiomediastinal silhouette is stable. Appearance of the chest is unchanged. IMPRESSION: 1. No acute cardiopulmonary findings. 2. Redemonstration of the indeterminate 1.9 cm right upper lobe nodule, better depicted on chest CT o f April 24, 2020. 3. Emphysema. ACT 112: Negative or not required by law. Electronically signed by: Mart Drew M.D. 06/27/2020 2:54 PM
--- NOTE | 2020-06-27 15:01 | Electrocardiogram Report ---
Test Reason : Blood Pressure : / mmHG Vent. Rate : 084 BPM Atrial Rate : 084 BPM P-R Int : 136 ms QRS Dur : 092 ms QT Int : 384 ms P-R-T Axes : 065 059 054 degrees QTc Int : 453 ms Normal sinus rhythm Normal ECG When compared with ECG of 22-AUG-2016 11:57, No significant change was found Confirmed by Jeremiah Calle ([id number]) on 06/27/2020 3:00:51 PM Referred By: Wilmer Way Confirmed By:Jeremiah Calle
--- NOTE | 2020-07-04 14:14 | Communication Note ---
Date of Service: July 04, 2020 Given recent increase in COVID admitted patients and cancellation of elective cases, this documentation is added to indicate that patient Silvia Remy's proc edure scheduled for tomorrow is deemed as medically necessary with an urgent classification according to [place] [employer] ([employer]) COVID guidelines. She is suffering from cervical myelopathy with recent progression, with further progression of symptoms and reduced function since last clinic appointment with me on Jun 22. It is thus recommended that we proceed with this procedure. The case was discussed with hospital ESCORT SERVICE ATTENDANT Dr. Coughlin and permission was obtained to proceed with surgery as previously scheduled for tomorrow.
[2020-07-05] MEDS ORDERED: LR 60ML/HR IV SCH (06:00)
[2020-07-05] MEDS ORDERED: LR 15ML/HR IV SCH (06:00)
[2020-07-05] MEDS ORDERED: MIDAZOLAM HCL 1 MG/ML 2ML VIAL ONE (06:37)
[2020-07-05] MEDS ORDERED: fentaNYL citrate 100 MCG/2 ML VIAL ONE ×3 (06:37→07:52)
[2020-07-05] MEDS ORDERED: REMIFENTANIL HCL 1 MG VIAL ONE ×3 (06:51→11:54)
--- NOTE | 2020-07-05 07:01 | History & Physical Bridge Note ---
Date of Service July 05, 2020 History & Physical Bridge Note I have examined the patient, reviewed the History & Physical and in the interval since the performance of the History & Physical I have noted the following changes of clinical significance: Since last follow-up, patient has underwent a gynecological ultrasound and biopsy. No other changes in health noted. Patient has noticed progression of her neurological symptoms with numbness now affecting bilateral feet and lower legs, and progressing to mid-forearm. She is having additional difficulty with mobility and getting up from seated positions. Neurological exam: light touch 2/2 bilateral upper and lower extremity except 1/2 entire forearm an d hand bilaterally, entire feet and lower half of legs bilaterally motor exam 5/5 C5-T1 except right C7 4/5, bilateral T1 4/5 motor exam 5/5 L3-S1 bilaterally, 4/5 bilateral L2 bullock positive bilaterally inverted brachioradialis positive bilaterally reflexes 3+ diffusely upper and lower extremity All new questions with regards to procedure answered, and patient marked for procedure.
[2020-07-05] MEDS ORDERED: GELATIN SPONGE 12-7MM ONE (07:08)
[2020-07-05] MEDS ORDERED: THROMBIN 5000 UNITS KIT ONE (07:09)
[2020-07-05] MEDS ORDERED: PROPOFOL IV EMULSION 10 MG/ML 20 ML VIAL IV ONE (07:10)
[2020-07-05] MEDS ORDERED: LIDOCAINE HCL 2% 2 ML VIAL/AMP(20MG/ML) INFIL ONE (07:10)
[2020-07-05] MEDS ORDERED: SUCCINYLCHOLINE 100MG/5ML SYR IV ONE ×2 (07:10→10:08)
[2020-07-05] MEDS ORDERED: DEXAMETHASONE SOD INJ 4 MG/ML VIAL ONE (07:10)
[2020-07-05] MEDS ORDERED: PROPOFOL IV EMULSION 10 MG/ML 100 ML VIAL IV ONE ×11 (07:10→13:28)
[2020-07-05] MEDS ORDERED: ONDANSETRON INJ 2 MG/ML 2 ML VIAL ONE ×2 (07:10→13:28)
[2020-07-05] MEDS ORDERED: KETAMINE 50 MG/5 ML SYRINGE ONE (07:10)
[2020-07-05] MEDS ORDERED: PHENYLEPHRINE 100MCG/ML 5ML SYR ONE (10:09)
[2020-07-05] MEDS ORDERED: PHENYLEPHRINE HCL 10 MG/ML VIAL ONE (10:09)
[2020-07-05] MEDS ORDERED: ceFAZolin 1000MG 1,000 MG/7.5 ML SYR IV ONE ×2 (11:56→11:57)
[2020-07-05] MEDS ORDERED: HYDROmorphone INJ 1 MG/ML SYRINGE ONE (13:23)
--- NOTE | 2020-07-05 13:54 | XRay Report ---
SINGLE VIEW CERVICAL SPINE CLINICAL HISTORY: Intraoperative radiographs. Spinal fusion. FINDINGS: 6 crosstable lateral portable views of the cervical spine are correlated with CT of the cer vical spine dated 06/22/2020. The skeletal structures are osteopenic. The initial image shows a surgica l probe anteriorly at the level of C4. Progressive images show changes from anterior spinal fusion, r eportedly from C4 to C7. Discectomy change is noted at C4-C5. The lower cervical spine is not well vi sualized due to the patient's shoulders. An endotracheal tube is in place. IMPRESSION: Intraoperative cervical spine fusion radiographs as above. Electronically signed by: Nino Stahl M.D. 07/05/2020 1:53 PM
[2020-07-05] MEDS ORDERED: FLOSEAL HEMOSTATIC MATRIX 10ML TOP ONE (14:07)
--- NOTE | 2020-07-05 14:11 | Post Operative Brief Note ---
PG Immediate Post Op with CF Date of Surgery July 05, 2020 Pre & Post Diagnosis Operation Date: 07/05/20 07:15 Pre-Op Diagnosis: Cervical Myelopathy Post-Op Diagnosis: Cervical Myelopathy I identified the patient and participated in the time-out.: Yes Procedure Operation Date: 07/05/20 07:15 Actual Procedures C4-C5, C5-C6, C6-C7 Anterior Cervical Discectomy and Fusion, Autograft, Allograft, Spinal Cord Monitoring (MEP, SSEP, EMG, Vocal Cord Monitoring)(Not Applicable) - Wilmer Way MD Surgeon Wilmer Way MD Host Coordinator Umesh Oviedo PA-C Estimated Blood Loss 100 Findings Consistent with Post-Op Diagnosis Specimens Specimen Description: none per surgeon Drains Sanchez Catheter (inserted after induction of anesthesia by Davis Morgan RN without difficulty) and Emerson-Mcclure Drain (15 honduran)
[2020-07-05] MEDS ORDERED: LABETALOL HCL IV 5 MG/ML 20ML IV PRN (14:43)
[2020-07-05] MEDS ORDERED: FLUMAZENIL 0.1 MG/1 ML 10 ML VIAL IV PRN (14:43)
[2020-07-05] MEDS ORDERED: NALOXONE HCL 0.4 MG/1 ML VIAL/CARP IV PRN ×2 (14:43→16:09)
[2020-07-05] MEDS ORDERED: PROMETHAZINE HCL 12.5 MG in SODIUM CHLORIDE 0.9% 50 ML IV PRN ×2 (14:43→16:09)
[2020-07-05] MEDS ORDERED: ATROPINE SULFATE 0.1 MG/ML 10ML SYR IV PRN (14:43)
[2020-07-05] MEDS ORDERED: ePHEDrine sulfate 50 MG/ML AMP IV PRN (14:43)
[2020-07-05] MEDS ORDERED: ONDANSETRON INJ 2 MG/ML 2 ML VIAL IV PRN ×2 (14:43→16:09)
[2020-07-05] MEDS ORDERED: fentaNYL citrate 100 MCG/2 ML VIAL IV PRN (14:43)
--- NOTE | 2020-07-05 15:18 | Communication Note ---
Date of Service: July 05, 2020 Post-op neurological assessment completed in PACU Patient awake, remains alert with repeated reinforcement Able to move upper extremity and lower extremity minimum 4/5 C5-T1, L2-S1 bilaterally Able to feel light touch C5-T1, L2-S1 bilaterally Exam limited by patient's somnolence post-anesthesia but no new neurological deficit identified.
--- NOTE | 2020-07-05 15:50 | Anesthesiology Progress Note ---
Date of Service July 05, 2020 Anesthesia Post Procedure Vital Signs Vital Signs: Temp Pulse Pulse Resp BP BP Pulse Ox 07/05/20 15:40 89 16 160/95 H 95 07/05/20 15:30 85 21 157/93 H 94 07/05/20 15:20 86 19 155/94 H 93 07/05/20 15:09 86 19 156/92 H 93 07/05/20 15:00 87 18 144/90 H 93 07/05/20 14:50 86 14 143/96 H 96 07/05/20 14:40 85 14 149/90 H 96 07/05/20 14:33 36.4 C L 87 12 149/96 H 96 07/05/20 05:51 36.7 C 94 H 18 125/79 97 Transfer of Care Handoff Completed per policy Notes Mental Status: alert / awake / arousable and participated in evaluation Patient Amnestic to Procedure: Yes Nausea / Vomiting: adequately controlled Pain: adequately controlled Airway Patency, RR, SpO2: stable & adequate BP & HR: stable & adequate Hydration State: stable & adequate Anesthetic Complications: no major complications apparent and Pt Satisfied with anesthetic care
[2020-07-05] MEDS ORDERED: ALUMINUM/MAGNESIUM SUSP 30 ML UDC PO PRN (16:09)
[2020-07-05] MEDS ORDERED: METOCLOPRAMIDE HCL INJ 5 MG/ML 2 ML VIAL IV PRN (16:09)
[2020-07-05] MEDS ORDERED: DO NOT ADMINISTER PNEUMOCOCCAL VACCINE PRN (16:09)
[2020-07-05] MEDS ORDERED: SOD PHOSPHATE/SOD BIPHOSPHATE ENEMA 132 ML BTL PR PRN (16:09)
[2020-07-05] MEDS ORDERED: ACETAMINOPHEN 500 MG TAB PO PRN (16:09)
[2020-07-05] MEDS ORDERED: ONDANSETRON 4 MG OD TAB PO PRN (16:09)
[2020-07-05] MEDS ORDERED: DO NOT ADMINISTER FLU VACCINE PRN (16:09)
[2020-07-05] MEDS ORDERED: MAGNESIUM HYDROXIDE SUSP 30 ML UDC PO PRN (16:09)
[2020-07-05] MEDS ORDERED: FAMOTIDINE 20 MG TAB PO PRN (16:09)
[2020-07-05] MEDS ORDERED: diphenhydrAMINE Capsule 25 MG CAP PO PRN (16:09)
[2020-07-05] MEDS ORDERED: LORazepam 0.5 MG/1 ML VIAL IV PRN (16:09)
[2020-07-05] MEDS ORDERED: hydrOXYzine HCl 25 MG TAB PO PRN (16:09)
[2020-07-05] MEDS ORDERED: LORazepam 0.5 MG TAB PO PRN (16:09)
[2020-07-05] MEDS ORDERED: ACETAMINOPHEN 1,000 MG/100 ML VIAL IV PRN (16:09)
[2020-07-05] MEDS ORDERED: RACEPINEPHRINE 2.25% NEBU SOLN 0.5 ML VIAL INH PRN (16:09)
[2020-07-05] MEDS ORDERED: dexAMETHasone 8 MG in SYRINGE 0 ML IV PRN (16:09)
[2020-07-05] MEDS ORDERED: ALBUTEROL HFA 8 GM INHALER INH PRN (16:33)
[2020-07-05] MEDS ORDERED: PHARMACY GLYCEMIC MGMT CONSULT PRN (16:43)
[2020-07-05] MEDS ORDERED: CARBOHYDRATES FOR HYPOGLYCEMIA PO PRN (17:00)
[2020-07-05] MEDS ORDERED: GLUCOSE 10 TABS/TUBE PO PRN (17:00)
[2020-07-05] MEDS ORDERED: NovoLIN-N (NPH) PER UNIT CHARGE SQ ONE (17:00)
[2020-07-05] MEDS ORDERED: GLUCOSE 40% GEL 15 GM TUBE PO PRN (17:00)
[2020-07-05] MEDS ORDERED: GLUCAGON FOR INJ 1 MG VIAL IM PRN (17:00)
[2020-07-05] MEDS ORDERED: DEXTROSE 50% 50 ML SYRINGE IV PRN (17:00)
[2020-07-05] MEDS: LACTATED RINGER'S 1,000 ML IV SCH (17:05)
[2020-07-05] MEDS: INSULIN ASPART 100 UNITS/ML 3 ML PEN SC SCH ×2 (17:40→21:36)
[2020-07-05] MEDS: ceFAZolin 2000MG 2,000 MG/15 ML SYR IV SCH (17:42)
[2020-07-05] MEDS: HYDROmorphone INJ 0.5 MG/0.5 ML SYR IV PRN (20:06)
[2020-07-05] MEDS: GABAPENTIN 300 MG CAP PO SCH (20:18)
[2020-07-05] MEDS: AMPHETAMINE ASP/SULF/DEXTRAMPH 5 MG TAB PO SCH (20:18)
[2020-07-05] MEDS: AMPHETAMINE ASP/SULF/DEXTRAMPH 10 MG TAB PO SCH (20:18)
[2020-07-05] MEDS: DOCUSATE SODIUM/SENNA 50/8.6MG TAB PO SCH (20:19)
[2020-07-05] MEDS: buPROPion SR 150 MG TABCR PO SCH (20:19)
[2020-07-05] MEDS ORDERED: DEXTROAMPHETAMINE AMPHETAMINE 15 MG PO SCH (21:00)
[2020-07-05] MEDS: CYCLOBENZAPRINE HCL 10 MG TAB PO SCH (21:37)
[2020-07-05] MEDS: HYDROCODONE/ACETAMOPHEN 5/325MG TAB PO PRN (22:34)
[2020-07-06] MEDS: ceFAZolin 2000MG 2,000 MG/15 ML SYR IV SCH (01:11)
[2020-07-06] MEDS: LACTATED RINGER'S 1,000 ML IV SCH (01:12)
[2020-07-06 05:44] LABS: Basophils # (auto) 0.01 K/uL (0-0.2); Basophils % (auto) 0.1 %; Eosinophils # (auto) 0.01 K/uL (0-0.5); Eosinophils % (auto) 0.1 %; Hematocrit (blood only) 38.4 % (37-47); Hemoglobin 12.5 g/dL (12.0-16.0); Immature Granulocytes # (auto) 0.01 K/uL (0.00-0.02); Immature Granulocytes % (auto) 0.1 %; Lymphocytes # (auto) 1.59 K/uL (1.2-3.4); Lymphocytes % (auto) 17.6 %; Mean Corpuscular Hemoglobin 28.3 pg (25-34); Mean Corpuscular Hgb Conc 32.6 g/dL (32-36); Mean Corpuscular Volume 87.1 fL (80-100); Mean Platelet Volume 12.1 fL (7.4-10.4); Monocytes # (auto) 0.68 K/uL (0.11-0.59); Monocytes % (auto) 7.5 %; Neutrophils # (auto) 6.73 K/uL (1.4-6.5); Neutrophils % (auto) 74.6 %; Platelet Count 180 K/uL (130-400); RDW Coefficient of Variation 14.2 % (11.5-14.5); RDW Standard Deviation 45.4 fL (36.4-46.3); Red Blood Count 4.41 M/uL (4.2-5.4); White Blood Count 9.03 K/uL (4.8-10.8)
[2020-07-06 06:14] LABS: BUN Creatinine Ratio 19.5 (10-20); Calcium 8.9 mg/dl (8.5-10.1); Creatinine Clr Calc Pharmacy 127.1 ml/min; Est GFR (African American) 105.1; Est GFR (Non-African American) 90.7; Potassium 4.1 mmol/L (3.5-5.1)
[2020-07-06] MEDS: CYCLOBENZAPRINE HCL 10 MG TAB PO SCH ×3 (06:25→22:52)
[2020-07-06] MEDS: POLYETHYLENE (MIRALAX) 17 GM PACK PO SCH ×3 (06:25→17:02)
[2020-07-06] MEDS: HYDROCODONE/ACETAMOPHEN 5/325MG TAB PO PRN ×3 (06:26→22:51)
[2020-07-06] MEDS: AMPHETAMINE ASP/SULF/DEXTRAMPH 10 MG TAB PO SCH ×3 (08:07→20:28)
[2020-07-06] MEDS: AMPHETAMINE ASP/SULF/DEXTRAMPH 5 MG TAB PO SCH ×3 (08:07→20:28)
[2020-07-06] MEDS: FLUTICASONE/VILANTEROL 100/25MCG 14 PUFFS/INHALER INH SCH (08:07)
[2020-07-06] MEDS: CHOLECALCIFEROL 1,000 UNITS 25 MCG TAB PO SCH (08:08)
[2020-07-06] MEDS: buPROPion SR 150 MG TABCR PO SCH ×2 (08:08→20:28)
[2020-07-06] MEDS: MULTIVITAMIN TAB PO SCH (08:08)
[2020-07-06] MEDS: PANTOprazole 40 MG TAB PO SCH (08:08)
[2020-07-06] MEDS: hydroCHLOROthiazide 25 MG TAB PO SCH (08:09)
[2020-07-06] MEDS: GABAPENTIN 300 MG CAP PO SCH ×2 (08:09→20:29)
--- NOTE | 2020-07-06 08:10 | Orthopedic Progress Note ---
Date of Service July 06, 2020 Assessment & Plan (1) Status post spinal surgery: Progressing well post-op Will advance diet today Will monitor drain output for potential removal this PM or tomorrow Post-op x-ray today PT involved for mobility Hospitalist consult pending; appreciate input and assistance with co-management Admission and Anticipated Discharge Date Admission Date: July 05, 2020 Subjective patient is doing well this AM pain well-controlled overnight tolerated clear fluids well. improving dysphagia since immediate post-op no hoarseness noted by patients no new numbness/weakness noted in the upper or lower extremity has not mobilized much out of bed yet wore home CPAP machine overnight Hgb 12.5 this AM glucose 107 this AM Review of Systems Review of Systems: All systems reviewed & are unremarkable except as noted in HPI & below Physical Exam Physical Exam: awake and alert vitals: see vital signs section; O2 satting well overnight with home CPAP machine. 89% this AM on RA. Now on 2LNP neck: soft, non-distended dressing: mild serosang discharge drain: 30 cc/8hr vascular: SCD's on patient; no calf tenderness or swelling, strong DP pulses bilaterally, no signs of DVT neuro: neuro exam unchanged from immediate pre-op light touch 2/2 bilateral upper and lower extremity except 1/2 entire forearm and hand bilaterally, entire feet and lower half of legs bilaterally motor exam 5/5 C5-T1 except right C7 4/5, bilateral T1 4/5 5/5 L3-S1 bilaterally, 4/5 bilateral L2 Results & Data ([facility]) Vital Signs (Past 12 Hours) Vital Signs Temp Pulse Resp BP Pulse Ox 07/06/20 07:18 82 18 89 L 07/06/20 06:00 36.5 C 80 16 126/69 95 07/06/20 04:08 80 18 158/79 H 95 07/06/20 03:13 71 18 95 07/06/20 02:11 80 18 134/78 92 07/05/20 23:46 36.5 C 94 H 17 142/78 H 93 07/05/20 23:05 84 18 93 07/05/20 22:10 36.8 C 99 H 14 151/79 H 95 Diagnostic Findings x-ray post-op pending PG Care Time/CCT Total # of Minutes Spent Total Time Spent with Patient: Total time spent is greater than 50% in coordination of care (as documented) at patient's floor/unit and/or counseling patient: Coding Level of Care Code None Diagnoses Status post spinal surgery Z98.890
[2020-07-06] MEDS: INSULIN ASPART 100 UNITS/ML 3 ML PEN SC SCH ×4 (08:58→21:25)
[2020-07-06] MEDS ORDERED: CELECOXIB 100 MG CAP PO SCH (09:00)
--- NOTE | 2020-07-06 09:33 | Hospitalist Consultation ---
Date of Consultation July 06, 2020 Assessment & Plan (1) Status post spinal surgery: * POD#1 s/p C4-C5, C5-C6, C6-C7 ACDF with Dr. Way. EBL 100cc. * PT/OT/pain management/bowel regimen per primary service * Pre-op h/h 14.5/12.5. EBL 100cc. GURPREET 40cc. * H/h today dropped to 12.5/38.4 -- acute blood loss following surgery as well as dilutional effect from IVF * Diet advanced per primary service * Monitoring drain output * Labs in AM (2) COPD (chronic obstructive pulmonary disease): * Hx of -- does not use rescue inhalers frequently -- albuterol HFA 1 puff Q6H prn * Breo 1 puff daily * Utilizes CPAP at night for DAVID * 89% on room air this morning and improved to 94% on RA * Educated and shown use on incentive spirometer --> continue to monitor (3) GERD (gastroesophageal reflux disease): * Utilizing protonix 40mg daily (20mg daily HEARING SCREEN COORDINATOR) (4) Depression: * Continue bupropion 150mg BID (5) Hyperlipidemia: * Not on any medication --- rec f/u with PCP (6) Hypertension: * CHronic. * BP stable * Continued on HCTZ 25mg daily * Continue to monitor (7) Vitamin D deficiency: * 2000IU daily continued (8) Diabetes mellitus, type 2: * A1C 5.6 * ISS while inpatient * Monitor BSGs (9) DVT prophylaxis: * Chemoproph contraindicated in spinal surgery * khoa Velasquez Thank you for allowing hospitalist medicine to participate in the care of Mrs. Remy. Hospitalist service will follow along. Supervising Physician Co-Signing Physician Notes I supervised Hawa Parr PA-C on this consult. I interviewed and examined the patient independently of her. The plan is as written in her note except for any following changes/exceptions: None Patient doing well. Seen after surgery and without any major pain. Will continue to monitor breathing status, but does not appear in any distress at this time. Will continue to follow. History of Present Illness Reason for Consultation: medical management Requesting Physician: Dr Way Attending Physician: Wilmer Way MD History of Present Illness 64 year old female with PMHx significant for HTN, HLD, COPD, DAVID (on CPAP), DM II, GERD presented with symptoms of vervical myelopathy for the past 3 months for ACDF with Dr. Way on 07/05. Patient states that she is feeling well. Had some issues with shortness of breath/swallowing last evening but this has improved. Of note, she had a lung biopsy in past several months and ended up with a pneumothorax requiring chest tube. She states numbness and tingling improved but still present primarily to her left outer arm to her hands, minimal on right. Some soreness with swallowing her pills but this is also lessened. She typically uses rescue inhaler 1x/month or every other month and is maintained on daily inhaler. She has been eating/drinking. Passing gas but no BM. Takes HCTZ for swelling as well as BP. She plans on continuing therapy while inpatient and plans to be here until Friday with possible outpatient therapy following depending on how she makes out. Educated and shown how to use incentive spirometer at bedside. No fever, chills, chest pain, shortness of breath, abdominal pain, nausea, vomiting. Laura d/cheryl this AM. Allergies Allergy/AdvReac Type Severity Reaction Status Date / Time No Known Allergies Allergy NONE Verified 07/05/20 05:45 Home Medications Medication Instructions Recorded Confirmed Type albuterol sulfate 90 mcg/actuation 1 puffs INH Q6H PRN 09/08/18 07/05/20 History aerosol inhaler bupropion HCl 150 mg tablet,12 hr 150 mg PO BID 09/08/18 07/05/20 History sustained-release multivitamin 1 cap PO DAILY 09/08/18 07/05/20 History dextroamphetamine-amphetamine 15 15 mg PO TID #90 tab 04/02/19 07/05/20 Rx mg tablet fluticasone 500 mcg-salmeterol 50 1 inh INH BID #60 ea 02/11/20 07/05/20 Rx mcg/dose blistr powdr for inhalation CPAP Machine #1 ea 02/23/20 07/03/20 Rx cholecalciferol (vitamin D3) 25 2,000 unit PO DAILY cap 03/28/20 07/05/20 History mcg (1,000 unit) capsule hydrocortisone 1 % topical ointment 1 applic TOPICAL BID PRN g 04/25/20 07/05/20 History nystatin 100,000 unit/gram topical 1 applic TOPICAL BID PRN g 04/25/20 07/05/20 History ointment hydrochlorothiazide 25 mg PO QAM 06/23/20 07/05/20 History metformin 1,000 mg PO QAM 06/23/20 07/05/20 History pantoprazole 20 mg PO QAM 06/23/20 07/05/20 History celecoxib 100 mg capsule 100 mg PO BID 14 Days #28 cap 07/04/20 07/05/20 Rx Patient History Medical History Allergic rhinitis Asthma Follows with Dr. Curry. Per PFTs 05/10/2020, "borderline proportional reduction in FEV1 and FVC with normal ratio. No change with bronchodilators. Lung volumes and DLCO normal. No change compared to 09/10 in eduardo, lung volumes better." Chronic back pain COPD (chronic obstructive pulmonary disease) Very rare rescue inhaler use. Degenerative disc disease Diabetes mellitus, type 2 Diverticular disease Frequent falls GERD (gastroesophageal reflux disease) H/O impacted cerumen Morbid obesity Nocturnal hypoxemia Pneumothorax after biopsy 06/07/20. S/P chest tube insertion. Sleep apnea cpap Solitary pulmonary nodule Surgical History H/O oral surgery History of colonoscopy History of salpingo-oophorectomy S/P section S/P cholecystectomy S/P hernia repair Family History Father Lung cancer Mother Breast cancer Denies family history of Colon cancer Ovarian cancer Prostate cancer Myocardial infarction Social History Smoking Status: Former smoker Smoking End Date: quit - 2015; Second Hand Exposure: No; Do You Dip or Chew Tobacco: No; Tobacco Cessation Education Requested by Patient: No Hx Alcohol Use: No Hx Substance Use: No Preferred Language: Latvian Communication Ability: Effective Visual Impairment: No Limitations Hearing Ability: Normal Cat Sitter Required: No Beliefs That Will Affect Care: None marital status: / Current Living Situation: Family current occupational status: employed Other Information That Helps Us Care for You: No Feels Safe at Home: Yes Safety Concerns: Feels Safe At This Time Childhood Exposure to Second-Hand Smoke: Yes Dental Care, Regularly: No Seatbelt Use: always Assistive Devices: Brace/Splint/Immobilizer and Glasses Review of Systems Review of Systems: All systems reviewed & are unremarkable except as noted in HPI & below Physical Exam Constitutional: WD/WN, vitals as above + obese, cooperative and comfortable; no acute distress Eyes: + anicteric sclerae and PERRL ENMT: mmm Neck: NOT on supplemental oxygen dressing c/d/i GURPREET with 20cc bloody/serosanginous drainage Respiratory: normal respiratory effort, lungs clear to auscultation Auscultation: + diminished lung sounds NO STRIDOR Cardiovascular: Rate/Rhythm: regular rate and regular rhythm Vessels: no JVD Extremities: no calf tenderness Gastrointestinal (Abdomen): normal bowel sounds, soft, nontender, no hepatosplenomegaly Musculoskeletal: Head/Neck/Chest: normocephalic and head atraumatic NVI except 1/2 to forearm and hands bilaterally to light touch motor 5/5 pulses palpable bilaterally calves non-tender, but with 1-2+ edema (pitting and lymphedema) Neurologic: PERRL, EOMI, accommodation nl, no face palsy, no dysarthria Psychiatric: A+Ox3, euthymic affect Genitourinary: NO BRYANT Results & Data Results & Data ([facility]) Vital Signs (Past 12 Hours) Vital Signs Temp Pulse Resp BP Pulse Ox 07/06/20 07:18 82 18 89 L 07/06/20 06:00 36.5 C 80 16 126/69 95 07/06/20 04:08 80 18 158/79 H 95 07/06/20 03:13 71 18 95 07/06/20 02:11 80 18 134/78 92 07/05/20 23:46 36.5 C 94 H 17 142/78 H 93 07/05/20 23:05 84 18 93 07/05/20 22:10 36.8 C 99 H 14 151/79 H 95 Laboratory Results 07/06/20 07/06/20 07/05/20 Range/Units 05:35 05:35 14:34 WBC 9.03 (4.8-10.8) K/uL RBC 4.41 (4.2-5.4) M/uL Hgb 12.5 (12.0-16.0) g/dL Hct 38.4 (37-47) % MCV 87.1 (80-100) fL MCH 28.3 (25-34) pg MCHC 32.6 (32-36) g/dL RDW Std Deviation 45.4 (36.4-46.3) fL RDW Coeff of Duncan 14.2 (11.5-14.5) % Plt Count 180 (130-400) K/uL MPV 12.1 H (7.4-10.4) fL Immature Gran % (Auto) 0.1 % Neut % (Auto) 74.6 % Lymph % (Auto) 17.6 % Dixon % (Auto) 7.5 % Eos % (Auto) 0.1 % Baso % (Auto) 0.1 % Neut # (Auto) 6.73 H (1.4-6.5) K/uL Lymph # (Auto) 1.59 (1.2-3.4) K/uL Dixon # (Auto) 0.68 H (0.11-0.59) K/uL Eos # (Auto) 0.01 (0-0.5) K/uL Baso # (Auto) 0.01 (0-0.2) K/uL Immature Gran # (Auto) 0.01 (0.00-0.02) K/uL Sodium 138 (136-145) mmol/L Potassium 4.1 (3.5-5.1) mmol/L Chloride 105 (98-107) mmol/L Carbon Dioxide 29 (21-32) mmol/L Anion Gap 4.0 (3-11) BUN 14 (7-18) mg/dl Creatinine 0.71 (0.6-1.2) mg/dl Est Cr Clr Drug Dosing 127.1 ml/min Est GFR ( Amer) 105.1 Est GFR (Non-Af Amer) 90.7 BUN/Creatinine Ratio 19.5 (10-20) Glucose 107 H (70-99) mg/dl POC Glucose 170 H (70-99) mg/dl Calcium 8.9 (8.5-10.1) mg/dl COVID-19 Eval Order SARS-CoV-2 RNA ([facility]) (Negative) 07/05/20 07/05/20 Range/Units 11:31 11:31 WBC (4.8-10.8) K/uL RBC (4.2-5.4) M/uL Hgb (12.0-16.0) g/dL Hct (37-47) % MCV (80-100) fL MCH (25-34) pg MCHC (32-36) g/dL RDW Std Deviation (36.4-46.3) fL RDW Coeff of Duncan (11.5-14.5) % Plt Count (130-400) K/uL MPV (7.4-10.4) fL Immature Gran % (Auto) % Neut % (Auto) % Lymph % (Auto) % Dixon % (Auto) % Eos % (Auto) % Baso % (Auto) % Neut # (Auto) (1.4-6.5) K/uL Lymph # (Auto) (1.2-3.4) K/uL Dixon # (Auto) (0.11-0.59) K/uL Eos # (Auto) (0-0.5) K/uL Baso # (Auto) (0-0.2) K/uL Immature Gran # (Auto) (0.00-0.02) K/uL Sodium (136-145) mmol/L Potassium (3.5-5.1) mmol/L Chloride (98-107) mmol/L Carbon Dioxide (21-32) mmol/L Anion Gap (3-11) BUN (7-18) mg/dl Creatinine (0.6-1.2) mg/dl Est Cr Clr Drug Dosing ml/min Est GFR ( Amer) Est GFR (Non-Af Amer) BUN/Creatinine Ratio (10-20) Glucose (70-99) mg/dl POC Glucose (70-99) mg/dl Calcium (8.5-10.1) mg/dl COVID-19 Eval Order Covid19 [facility] SARS-CoV-2 RNA ([facility]) Negative (Negative) PG Care Time/CCT Total # of Minutes Spent Total Time Spent with Patient: Total time spent is greater than 50% in coordination of care (as documented) at patient's floor/unit and/or counseling patient: Coding Level of Care Code 85766 Inpt Consult Level 3 Diagnoses Status post spinal surgery Z98.890 COPD (chronic obstructive pulmonary disease) J44.9 GERD (gastroesophageal reflux disease) K21.9 Depression F32.9 Hyperlipidemia E78.5 Hypertension I10 Vitamin D deficiency E55.9 Diabetes mellitus, type 2 E11.9 DVT prophylaxis Z29.9
--- NOTE | 2020-07-06 14:43 | Pharmacy Report ---
Pharmacy Glycemic Short Note 2 - Date of Service July 06, 2020 - Glycemic Short BSG Results (Last 24 hours): 07/05/20 07/05/20 07/05/20 14:34 17:23 20:44 Glucose POC Glucose 170 H 145 H 133 H 07/06/20 07/06/20 07/06/20 05:35 08:29 12:04 Glucose 107 H POC Glucose 97 84 OUTPATIENT ANTIDIABETIC REGIMEN: * Metformin ER 1000mg PO daily * HbA1c: 5.6% (06/27/20) ASSESSMENT: * Ms Remy is a 64yo diabetic female, POD #1 s/p spinal surgery. * On admission, PO meds held and pt initiated on SQ insulin. * Pt received a dose of dexamethasone preoperatively yesterday, so a dose of NPH was provided to prevent steroid-induced hyperglycemia. * BSGs have been well-controlled thus far, so do not anticipate that patient will have significant insulin requirements moving forward. * Will plan to resume oral meds when patient's diet is advanced/tolerated. PLAN FOR INPATIENT GLYCEMIC CONTROL: * Hold outpatient oral diabetes medications * Basal insulin * NPH 30 units SQ x1 dose yesterday, post-op * No further doses required at this time. * Bolus insulin * NovoLog per scale ACHS or Q6hrs while NPO * Goal Range: Low 110 mg/dL - High 140 mg/dL * Correction Factor: 25 mg/dL/unit * Nutritional / Prandial insulin: none at this time PLAN FOR DISCHARGE: * HbA1c: 5.6% * This A1c indicates excellent glycemic control. Expect that pt may resume home regimen on discharge, as long as no contraindications arise.
[2020-07-06] MEDS: HYDROmorphone INJ 0.5 MG/0.5 ML SYR IV PRN (18:32)
[2020-07-06] MEDS: DOCUSATE SODIUM/SENNA 50/8.6MG TAB PO SCH (20:29)
[2020-07-07] MEDS: POLYETHYLENE (MIRALAX) 17 GM PACK PO SCH ×4 (00:35→17:51)
[2020-07-07] MEDS: CYCLOBENZAPRINE HCL 10 MG TAB PO SCH ×3 (06:28→20:59)
[2020-07-07] MEDS: HYDROCODONE/ACETAMOPHEN 5/325MG TAB PO PRN ×4 (06:34→20:58)
[2020-07-07 06:53] LABS: Hematocrit (blood only) 39.8 % (37-47); Hemoglobin 12.7 g/dL (12.0-16.0); Mean Corpuscular Hemoglobin 28.4 pg (25-34); Mean Corpuscular Hgb Conc 31.9 g/dL (32-36); Mean Platelet Volume 12.2 fL (7.4-10.4); Platelet Count 180 K/uL (130-400); RDW Coefficient of Variation 14.9 % (11.5-14.5); RDW Standard Deviation 48.3 fL (36.4-46.3); Red Blood Count 4.47 M/uL (4.2-5.4); White Blood Count 6.62 K/uL (4.8-10.8)
[2020-07-07 07:33] LABS: BUN Creatinine Ratio 22.6 (10-20); Calcium 8.6 mg/dl (8.5-10.1); Creatinine Clr Calc Pharmacy 114.2 ml/min; Est GFR (African American) 92.3; Est GFR (Non-African American) 79.7; Potassium 3.6 mmol/L (3.5-5.1)
[2020-07-07 07:43] LABS: Thyroid Stimulating Hormone 2.09 uIu/ml (0.300-4.500)
--- NOTE | 2020-07-07 08:31 | Orthopedic Progress Note ---
Date of Service July 07, 2020 Assessment & Plan (1) Status post spinal surgery: Progressing well post-op Will remove drain this AM Post-op x-ray pending PT involved for mobility; might need possible rehab given pre-op balance issues as per PT assessment yesterday will consult case management for help with arranging potential rehab placement Hospitalist/RT involved; will need improvement in oxygen requirements before d/c Admission and Anticipated Discharge Date Admission Date: July 05, 2020 Subjective patient feeling well this morning pain well controlled did PT twice yesterday. limited by her balance issues from pre-op, unchanged as per patient. 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 no signs of DVT neuro: light touch 2/2 bilateral upper and lower extremity except 1/2 entire forearm and hand bilaterally, entire feet bilaterally (describes lower legs as having normal sensation now vs. yesterday) motor exam 5/5 C5-T1 except right C7 4/5, bilateral T1 4/5 5/5 L3-S1 bilaterally, 4/5 bilateral L2 Results & Data ([facility]) Vital Signs (Past 12 Hours) Vital Signs Temp Pulse Resp BP Pulse Ox 07/07/20 08:00 35.9 C L 72 18 126/75 94 07/07/20 07:10 75 18 92 07/07/20 04:00 36.6 C 78 12 142/88 H 07/07/20 03:44 73 18 94 07/07/20 00:00 36.6 C 70 14 136/81 93 07/06/20 23:27 83 18 94 Diagnostic Findings post-op x-ray cervical spine pending PG Care Time/CCT Total # of Minutes Spent Total Time Spent with Patient: Total time spent is greater than 50% in coordination of care (as documented) at patient's floor/unit and/or counseling patient: Coding Level of Care Code None Diagnoses Status post spinal surgery Z98.890
[2020-07-07] MEDS: buPROPion SR 150 MG TABCR PO SCH ×2 (08:45→20:59)
[2020-07-07] MEDS: hydroCHLOROthiazide 25 MG TAB PO SCH (08:45)
[2020-07-07] MEDS: GABAPENTIN 300 MG CAP PO SCH ×2 (08:45→20:59)
[2020-07-07] MEDS: CHOLECALCIFEROL 1,000 UNITS 25 MCG TAB PO SCH (08:45)
[2020-07-07] MEDS: PANTOprazole 40 MG TAB PO SCH (08:45)
[2020-07-07] MEDS: FLUTICASONE/VILANTEROL 100/25MCG 14 PUFFS/INHALER INH SCH (08:45)
[2020-07-07] MEDS: MULTIVITAMIN TAB PO SCH (08:45)
[2020-07-07] MEDS: INSULIN ASPART 100 UNITS/ML 3 ML PEN SC SCH ×4 (08:46→21:13)
[2020-07-07] MEDS: AMPHETAMINE ASP/SULF/DEXTRAMPH 5 MG TAB PO SCH ×3 (08:50→21:00)
[2020-07-07] MEDS: AMPHETAMINE ASP/SULF/DEXTRAMPH 10 MG TAB PO SCH ×3 (08:50→21:00)
--- NOTE | 2020-07-07 11:34 | XRay Report ---
XR cervical spine 2 or 3V CLINICAL HISTORY: upright films; post-op cervical fusion COMPARISON STUDY: Cervical spine 07/05/2020. FINDINGS: The cervical spine is visualized from C1 through the superior endplate of T1. There is stra ightening of the cervical spine. Alignment is intact. The patient is status post anterior cervical di scectomy and fusion from C4 through C7. The hardware appears intact. Prevertebral soft tissue swellin g within the mid to lower cervical spine favors postoperative change. This results in slight mass eff ect along the airway. Ramu-sn-znyespxm facet degenerative changes. No fractures. IMPRESSION: 1. Status post C4-C7 ACDF. The hardware appears intact. 2. No fracture or subluxation within the cervical spine. 3. Prevertebral soft tissue swelling within the mid to lower cervical spine which favors postoperativ e change. This results in slight posterior mass effect along the airway. ACT 112: Negative or not required by law. Electronically signed by: Chris Medel M.D. 07/07/2020 11:33 AM
--- NOTE | 2020-07-07 11:36 | XRay Report ---
XR chest 1V portable HISTORY: Hypoxia COMPARISON: Chest 06/27/2020. FINDINGS: No change in the 1.8 cm right upper lobe nodule overlying the right midlung zone. Cervical spinal fusion hardware is noted. No pneumothorax. No pleural effusions. The cardiac silhouette is top normal in size. No new focal lung consolidations to suggest pneumonia. No evidence for pulmonary norma ma. IMPRESSION: 1. No significant change compared to the prior study. No acute process. 2. Redemonstration of the 1.8 cm right upper lobe nodule which is better appreciated on the recent est CT. 3. Interval cervical spinal fusion. ACT 112: Negative or not required by law. Electronically signed by: Chris Medel M.D. 07/07/2020 11:35 AM
--- NOTE | 2020-07-07 13:20 | Hospitalist Progress Note ---
Date of Service July 07, 2020 Assessment & Plan (1) GERD (gastroesophageal reflux disease): Silvia Remy is a 64 year old woman with a past medical history significant for COPD (No PFT's seen in chart), obesity, hypertension, DMII, and osteoarthritis who we have been consulted on for acute hypoxemic respiratory failure following cervical spine surgery Acute hypoxemic respiratory failure Improving, appears to be component of atelectasis as well as obesity hypovent ilation syndrome on baseline of COPD (No PFT's on chart). Repeat CXR clear Seems that she does have some atelectasis but also given body habitus she is desaturating while lying likely due to combination of this with Obesity hypoventilation. IF she is in bed she will need to use her CPAP when she gets home and when she is up and around I doubt she will require oxygen but in case she does I will order a two step to qualify her for home O2 if needed. Encouraged incentive spirometry both here and after discharge and she is oxygenating in 90's for me every time I'm with her At this time patient seems absolutely stable to return home or to go to rehab facility, though given her statements to me she will be returning home with home therapy. Other Chronic problems stable continue home medications. Okay for discharge from Medicine perspective. (2) Diabetes mellitus, type 2: (3) DVT prophylaxis: (4) Status post spinal surgery: (5) COPD (chronic obstructive pulmonary disease): (6) Depression: (7) Hyperlipidemia: (8) Fatty liver: (9) Prediabetes: (10) Obstructive sleep apnea: (11) Acute hypoxemic respiratory failure: (12) Obesity hypoventilation syndrome: Admission and Anticipated Discharge Date Admission Date: July 05, 2020 Supervising Physician Co-Signing Physician Notes I personally examined the patient and verified all cornell points of history and exam, discussed case, and agree with decision making with Dr Franklin. Has some hypoxia, not really feeling short of breath. Also notes a degree of left shoulder muscle pain. Vitals noted, in general she is awake and alert pleasant no distress. 90-91 on room air when talking, when sitting up and taking deep breaths she improves to 93-94. Lungs show faint bibasilar rales consistent with atelectasis, with a deep breath she has a bit of a cough. No other rales rhonchi or wheezes elsewhere. No accessory muscle use. Musculoskeletal/osteopathic shows left upper shoulder musculature in the region of levator scapula to be high tone, tender, decreased range of motioninhibitory pressureimproved some. Patient tolerated well. Hypoxia -Seems extremely consistent with atelectasis. Deep breathing, incentive spirometry, supportive care, time. She does appear stable for rehab. If she goes home she might need supplemental oxygen for the short-term, given with the surgery it would not surprise me if it takes her a while to have mobility to have enough deep breathing. Either way medically would be stable for dischargeif to rehab and they would be able to continue to manage her O2 sats there, if home, it would be likely fairly easy to set up supplemental oxygen for a short-term. Somatic dysfunction thoracic regionOMT as above. Subjective Silvia doing well today, not subjectively short of breath, has been working well with her incentive spirometer, has been up and walking with therapists without any difficulties apart from her chronic balance concerns. She has decided that she is not wanting to got to rehab. Review of Systems Review of Systems: All systems reviewed & are unremarkable except as noted in HPI & below Physical Exam Physical Exam: Constitutional: Morbidly obese, resting comfortably sitting up on edge of bed communicating easily Eyes: PERRLA Neck: C collar in place, incision with bandage Respiratory: Regular rate, no increased work of breathing, lung sounds with faint crackles at bases, coughing with deep inspiration Cardiovascular: Regular rate regular rhythm, no murmurs rubs skips or gallops, peripheral pulses intact GI: Abdomen soft/nontender, obese MSK: NAD Results & Data Results & Data ([facility]) Vital Signs (Past 12 Hours) Vital Signs Temp Pulse Resp BP Pulse Ox 07/07/20 11:05 36.3 C L 87 17 107/67 93 07/07/20 11:00 85 16 92 07/07/20 08:00 35.9 C L 72 18 126/75 94 07/07/20 07:10 75 18 92 07/07/20 04:00 36.6 C 78 12 142/88 H 07/07/20 03:44 73 18 94 Resident Activity Tracking Resident Involvement: Resident Care Provided Care Provided: Adult Hospital Medicine
[2020-07-07] MEDS ORDERED: bisacodyL 10 MG SUPP PR PRN (14:22)
--- NOTE | 2020-07-07 18:39 | Billing Data ---
Date of Service July 07, 2020 Coding Level of Care Code 25476 Subseq Hosp Care Lvl 2
--- NOTE | 2020-07-07 18:40 | Hospitalist Progress Note ---
Date of Service July 07, 2020 Assessment & Plan Admission and Anticipated Discharge Date Admission Date: July 05, 2020 Results & Data Results & Data ([facility]) Vital Signs (Past 12 Hours) Vital Signs Temp Pulse Pulse Pulse Pulse Resp Resp 07/07/20 16:00 97.7 F 94 H 16 07/07/20 15:14 110 H 119 H 90 20 07/07/20 14:58 119 H 20 07/07/20 14:10 07/07/20 11:05 97.3 F L 87 17 07/07/20 11:00 85 16 07/07/20 08:00 96.6 F L 72 18 07/07/20 07:10 75 18 Resp Resp BP Pulse Ox Pulse Ox Pulse Ox Pulse Ox 07/07/20 16:00 123/76 91 91 07/07/20 15:14 20 16 90 92 07/07/20 14:58 92 07/07/20 14:10 94 07/07/20 11:05 107/67 93 07/07/20 11:00 92 07/07/20 08:00 126/75 94 07/07/20 07:10 92 Pulse Ox 07/07/20 16:00 07/07/20 15:14 92 07/07/20 14:58 07/07/20 14:10 07/07/20 11:05 07/07/20 11:00 07/07/20 08:00 07/07/20 07:10 PG Care Time/CCT Total # of Minutes Spent Total Time Spent with Patient: Total time spent is greater than 50% in coordination of care (as documented) at patient's floor/unit and/or counseling patient: Coding Level of Care Code None CPT Codes Musculoskeletal - Musculoskeletal: 96495 [address] Tr 1-2 Body regions ([id number])
[2020-07-07] MEDS: DOCUSATE SODIUM/SENNA 50/8.6MG TAB PO SCH (21:00)
[2020-07-08] MEDS: POLYETHYLENE (MIRALAX) 17 GM PACK PO SCH ×5 (00:09→23:03)
[2020-07-08] MEDS: HYDROCODONE/ACETAMOPHEN 5/325MG TAB PO PRN ×5 (01:10→23:03)
[2020-07-08] MEDS: CYCLOBENZAPRINE HCL 10 MG TAB PO SCH ×3 (05:56→22:48)
[2020-07-08] MEDS: AMPHETAMINE ASP/SULF/DEXTRAMPH 5 MG TAB PO SCH ×3 (07:30→20:30)
[2020-07-08] MEDS: AMPHETAMINE ASP/SULF/DEXTRAMPH 10 MG TAB PO SCH ×3 (07:30→20:30)
[2020-07-08] MEDS: MULTIVITAMIN TAB PO SCH (08:27)
[2020-07-08] MEDS: GABAPENTIN 300 MG CAP PO SCH ×2 (08:27→20:30)
[2020-07-08] MEDS: buPROPion SR 150 MG TABCR PO SCH ×2 (08:27→20:31)
[2020-07-08] MEDS: CHOLECALCIFEROL 1,000 UNITS 25 MCG TAB PO SCH (08:27)
[2020-07-08] MEDS: FLUTICASONE/VILANTEROL 100/25MCG 14 PUFFS/INHALER INH SCH (08:28)
[2020-07-08] MEDS: hydroCHLOROthiazide 25 MG TAB PO SCH (08:28)
[2020-07-08] MEDS: PANTOprazole 40 MG TAB PO SCH (08:28)
[2020-07-08] MEDS: INSULIN ASPART 100 UNITS/ML 3 ML PEN SC SCH ×4 (08:30→21:44)
--- NOTE | 2020-07-08 08:34 | Pharmacy Report ---
Pharmacy Glycemic Sign Off Nt - Date of Service July 08, 2020 - Assessment & Plan ASSESSMENT: * Pharmacy was consulted by Dr Way on 07/05 for glycemic control and to write orders per [facility] inpatient glycemic control protocol. * Major changes made by pharmacy to antidiabetic regimen include: * holding outpatient metformin and starting bolus insulin monotherapy with NovoLog * Patient has been receiving/requiring 0 units of insulin per day for adequate glycemic control * BSGs ranging 84 - 106 mg/dl * Regimen has only required minor adjustments over the past 48hrs to achieve this level of control * Do not anticipate further changes in patient status that would quickly d eteriorate glycemic control (i.e. patient to be NPO for upcoming procedure, steroids tapering, starting tube feedings, etc). * Please see recommendations for outpatient antidiabetic regimen below. PLAN FOR INPATIENT GLYCEMIC CONTROL: No changes needed to current regimen. * No basal insulin needed * Continue NovoLog per scale ACHS/Q6hrs while NPO * Goal range = 110-140 mg/dl * CF = 25 mg/dl/unit * CR = 1 unit for ever --- g CHO consumed * Pharmacy is signing off of glycemic consult and will no longer be making adjustments to inpatient regimen. Please feel free to re-consult if needed. Thank you. DISCHARGE RECOMMENDATIONS: * A1c 5.6 % on 06/27/20 * No changes needed to outpatient regimen. Continue metformin 1,000mg PO daily
--- NOTE | 2020-07-08 09:50 | Hospitalist Progress Note ---
Date of Service July 08, 2020 Assessment & Plan (1) GERD (gastroesophageal reflux disease): Silvia Remy is a 64 year old woman with a past medical history significant for COPD (No PFT's seen in chart), obesity, hypertension, DMII, and osteoarthritis who we have been consulted on for acute hypoxemic respiratory failure following cervical spine surgery Acute hypoxemia Improving, appears to be component of atelectasis as well as obesity hypoventilation syndrome on baseline of COPD (No PFT's on chart). Repeat CXR clear Passed two step so no need for home oxygen just CPAP while lying down Encouraged incentive spirometry both here and after discharge and she is o xygenating in 90's for me every time I'm with her. Also encouraged her to be up and walking as much as she can safely tolerate as this will cause her to expand her lungs and improve her atelectasis as well. At this time patient seems absolutely stable to return home or to go to rehab facility, though given her statements to me she will be returning home with home therapy. Other Chronic problems stable continue home medications. Okay for discharge from Medicine perspective. (2) Diabetes mellitus, type 2: (3) DVT prophylaxis: (4) Status post spinal surgery: (5) COPD (chronic obstructive pulmonary disease): (6) Depression: (7) Hyperlipidemia: (8) Fatty liver: (9) Prediabetes: (10) Obstructive sleep apnea: (11) Acute hypoxemic respiratory failure: (12) Obesity hypoventilation syndrome: Admission and Anticipated Discharge Date Admission Date: July 05, 2020 Supervising Physician Co-Signing Physician Notes I personally examined the patient and verified all cornell points of history and exam, discussed case, and agree with decision making with Dr Franklin. breathing feels fine, shoulder pain came back - she successfully did inhibitory pressure with her cane Vitals noted, in general she is awake and alert pleasant no distress. lungs cta b/l no r/r/w good effort. no focal neuro deficits. Hypoxia -Seems extremely consistent with atelectasis. Deep breathing, incentive spirometry, supportive care, time. has improved. does not appear that she will need O2 at all at dc. continue IS, ambulation, supportive care Somatic dysfunction thoracic regionOMT done yesterday, she was able to self apply today! Subjective Silvia Remy continuing to do well, oxygenating well while up in her chair, no subjective shortness of breath, only complaints are neck and shoulder pain as well as sore throat after her procedure. She is ready to get back home to her two grandkids 10 and 13 who live with her. Review of Systems Review of Systems: All systems reviewed & are unremarkable except as noted in HPI & below Physical Exam Physical Exam: Constitutional: Morbidly obese, resting comfortably sitting up on edge of bed communicating easily Eyes: PERRLA Neck: C collar in place, incision with bandage Respiratory: Regular rate, no increased work of breathing, lung sounds with faint crackles at bases, coughing with deep inspiration Cardiovascular: Regular rate regular rhythm, no murmurs rubs skips or gallops, peripheral pulses intact GI: Abdomen soft/nontender, obese MSK: NAD Results & Data Results & Data ([facility]) Vital Signs (Past 12 Hours) Vital Signs Temp Pulse Resp BP Pulse Ox Pulse Ox 07/08/20 08:07 66 20 93 07/08/20 07:34 36.7 C 93 H 16 145/86 H 94 07/08/20 05:57 93 07/08/20 05:49 95 07/08/20 05:10 94 07/08/20 04:00 36.6 C 74 16 149/95 H 92 07/08/20 03:00 84 14 90 07/08/20 00:01 36.5 C 87 20 161/93 H 90 07/07/20 23:00 87 18 94 Resident Activity Tracking Resident Involvement: Resident Care Provided Care Provided: Adult Hospital Medicine
--- NOTE | 2020-07-08 12:16 | Orthopedic Progress Note ---
Date of Service July 08, 2020 Assessment & Plan (1) Status post spinal surgery: Progressing well post-op Hospitalist/RT involved, currently medically clear for discharge with return back to baseline CPAP use and no O2 needs Given some difficulties with steps today with PT, will keep admitted for one more night for further mobility and PT Admission and Anticipated Discharge Date Admission Date: July 05, 2020 Subjective patient feeling well this morning pain well controlled skilled nursing case manager involved yesterday for consideration for rehab vs. home health care given pre-op mobility and balance issues patient does not want to go to rehab. did PT this AM with improvements. required some assistance with steps but overall, much better pre-op was using wheelchair for long distance and walker for short distance. utilizing a walker in hospital. mobilized well for me getting out of bed independently and walking to room computer to review post-op x-rays with me no new numbness/weakness noted believes her leg numbness is continuing to improve continues to tolerate solid foods well no hoarseness seen by hospitalist service this AM and cleared medically for discharge with an oxygen requirement assessment completed with mobility to ensure no need for home O2 for patient. will continue to use CPAP machine at home similar to pre-op while sleeping and lying in bed. Physical Exam Physical Exam: vitals: see vital signs section; no O2 requirement overnight a nd this am neck: soft, non-distended dressing: dressing clean/dry/intact drain: removed yesterday vascular: no calf tenderness or swelling bilaterally. no signs of DVT neuro: light touch 2/2 bilateral upper and lower extremity except 1/2 entire forearm and hand bilaterally, entire feet bilaterally motor exam 5/5 C5-T1 except right C7 4/5, bilateral T1 4/5 5/5 L3-S1 bilaterally, 4/5 bilateral L2 Results & Data ([facility]) Vital Signs (Past 12 Hours) Vital Signs Temp Pulse Resp BP Pulse Ox Pulse Ox 07/08/20 11:39 36.6 C 91 H 16 165/85 H 94 07/08/20 08:07 66 20 93 07/08/20 07:34 36.7 C 93 H 16 145/86 H 94 07/08/20 05:57 93 07/08/20 05:49 95 07/08/20 05:10 94 07/08/20 04:00 36.6 C 74 16 149/95 H 92 07/08/20 03:00 84 14 90 Diagnostic Findings post-op x-ray cervical spine: acceptable alignment of hardware, improvement in lordosis from pre-op PG Care Time/CCT Total # of Minutes Spent Total Time Spent with Patient: Total time spent is greater than 50% in coordination of care (as documented) at patient's floor/unit and/or counseling patient: Coding Level of Care Code None Diagnoses Status post spinal surgery Z98.890
--- NOTE | 2020-07-08 12:28 | Operative Report ---
PG Post Operative Report Pre & Post Diagnosis Operation Date: 07/05/20 07:15 Pre-Op Diagnosis: Cervical Myelopathy with multi-level central stenosis affecting C4-5, C5-6, C6-7 Post-Op Diagnosis: Cervical Myelopathy with multi-level central stenosis affecting C4-5, C5-6, C6-7 I identified the patient and participated in the time-out.: Yes Procedure 1. Anterior Cervical Discectomy and Fusion C4-5, C5-6, C6-7 2. Anterior Cervical Instrumentation same levels 3. Anterior Interbody Device same levels 4. Local Autograft for anterior cervical fusion 5. Allograft, morselized (DBM) Surgeon Wilmer Way MD Clinical Research Associate Umesh Oviedo PA-C Estimated Blood Loss 100 Findings Consistent with Post-Op Diagnosis Specimens none Description of Procedure Implants: 1. K2M [employer] Cervical Interbody - 7deg, 12x14, C4-5: 7mm C5-6: 9mm C6-7: 8mm 2. K2M [place] anterior cervical plate 54mm with 4.0x12mm screws (x8) 3. Game Blisterstronic [place] DBM Drains: 1. GURPREET drain x 1 (15 Italian) Indications: Patient is a 64 year old female who presented to my clinic on June 19 and Jun 22 with symptoms and signs of progressive cervical myelopathy for the last 3 months, including upper and lower extremity weakness and subjective numbness, and balance issues. A discussion was had with her with regards to surgical and non-surgical management of her issue. Informed consent was obtained and patient was booked for above procedure. On day of surgery, patient was identified in pre-op holding area. History and Physical was updated, surgical site was marked, and consent was confirmed. Risks, benefits and alternatives were discussed again and I answered all their questions. Procedure details: Patient was brought to the operating room and underwent general anesthesia. Patient was placed supine on the operating table with neck in gentle extension. Face, eyes, bony prominences, and peripheral nerves were well protected. SCDs were applied to bilateral legs to reduce risk of DVT. Shoulders were gently taped inferiorly in order to assist with imaging. Anterior cervical region was prepped and draped in standard fashion. A time-out was performed and documented. This included confirmation of administration of prophylactic antibiotics prior to incision. Anterior Lucia-Mcintosh type approach was made on the right side. The carotid artery was palpated and retracted laterally. The anterior cervical spine was visualized and a localization needle was placed in a visualized disc spaces and checked with lateral portable x-ray. Given patient's anatomy and overlap of cervical spine with shoulders, a repeat film with a more proximal needle placement was needed. This confirmed the C4-5 level. The longus coli was elevated bilaterally and a self retaining retractor placed. Anterior osteophytes were removed and saved for local autograft. Anterior discectomy was performed with disc knife, ronguers, and currettes. This was started at the most distal level. [place] type distraction pins were placed into the vertebral body above and below each of the discs sequentially. Gentle distraction was applied. Posterior discectomy with decompression of the central spinal cord and bilateral foraminal areas was performed with high speed ankur, curettes, and ronguers. This included the takedown of PLL for assessment of any disc protrusion more posteriorly. Once the decompression was judged to be adequate, attention was turned to the preparation of the interspace for fusion. A ankur and currettes were used to prepare endplates for fusion with flat, bleeding surfaces. These steps were repeated for more proximal levels sequentially. [place] pin holes were filled with bone wax after removal. Of note, the C5-6 level had large posterior osteophytes superiorly and inferiorly that were carefully drilled thin and removed with currettes. Once all levels were prepared, remaining Mil[place] pins were removed and a trial sizer was used to size the interbody device for the most inferior level. The interbody device was packed with local bone and DBM allograft. The interbody device was placed in the interspace. This was repeated from distal to proximal for all levels affected. An appropriate size anterior cervical plate was selected. A temporizing pin was used distally and screw hole placement was confirmed to be appropriate proximally. The plate was then secured with two screws into the most proximal vertebral body, followed by two screws into the most distal vertebral body. The remaining screw holes were then filled. Each screw hole was pre-drilled prior to insertion of the screws. The self retaining retractor was removed and the wound checked for hemostasis. Lateral portable x-ray imaging confirmed the correct surgical level and implant positions within extent permitted by patient habitus. The wound was irrigated. There was good hemostasis. A GURPREET drain was inserted below the incision. The pl atsyma layer was closed with 2-0 vicryl and the skin with 3-0 monocryl. Steristrips, and a sterile dressing were applied. The patient was awakened and taken to the recovery room in stable condition. Neuromonitoring was performed throughout the case using SSEP, MEP, EMG and vocal cord monitoring. No changes to pre-op neuromonitoring findings were noted during the case. There were no intraoperative complications noted. Sponge and needle counts were correct x2 at the conclusion of the case. I attest to the content of the Intraoperative Record and any orders documented therein. Any exceptions are noted below.
--- NOTE | 2020-07-08 19:09 | Billing Data ---
Date of Service July 08, 2020 Coding Level of Care Code 47173 Subseq Hosp Care Lvl 1
[2020-07-08] MEDS: DOCUSATE SODIUM/SENNA 50/8.6MG TAB PO SCH (20:31)
[2020-07-09] MEDS: POLYETHYLENE (MIRALAX) 17 GM PACK PO SCH ×2 (05:31→12:59)
[2020-07-09] MEDS: CYCLOBENZAPRINE HCL 10 MG TAB PO SCH (05:32)
[2020-07-09] MEDS: HYDROCODONE/ACETAMOPHEN 5/325MG TAB PO PRN ×2 (05:38→12:59)
[2020-07-09] MEDS: FLUTICASONE/VILANTEROL 100/25MCG 14 PUFFS/INHALER INH SCH (08:22)
[2020-07-09] MEDS: CHOLECALCIFEROL 1,000 UNITS 25 MCG TAB PO SCH (08:23)
[2020-07-09] MEDS: PANTOprazole 40 MG TAB PO SCH (08:23)
[2020-07-09] MEDS: buPROPion SR 150 MG TABCR PO SCH (08:23)
[2020-07-09] MEDS: MULTIVITAMIN TAB PO SCH (08:23)
[2020-07-09] MEDS: GABAPENTIN 300 MG CAP PO SCH (08:24)
[2020-07-09] MEDS: hydroCHLOROthiazide 25 MG TAB PO SCH (08:24)
[2020-07-09] MEDS: AMPHETAMINE ASP/SULF/DEXTRAMPH 5 MG TAB PO SCH (08:27)
[2020-07-09] MEDS: AMPHETAMINE ASP/SULF/DEXTRAMPH 10 MG TAB PO SCH (08:27)
[2020-07-09] MEDS: INSULIN ASPART 100 UNITS/ML 3 ML PEN SC SCH ×2 (08:28→13:00)
--- NOTE | 2020-07-09 10:52 | Orthopedic Progress Note ---
Date of Service July 09, 2020 Assessment & Plan (1) Status post spinal surgery: Progressing well post-op d/c today (cleared by both PT and hospitalist service) Admission and Anticipated Discharge Date Admission Date: July 05, 2020 Subjective patient feeling well this morning pain well controlled mobilizing better as per patient. seen by PT this AM and cleared for discharge (provider to provider discussion) needed 2L with her CPAP overnight. Seen by hospitalist service this AM. Cleared for discharge medically by Dr. Imer Fried. no new numbness/weakness noted continues to tolerate solid foods well no hoarseness Physical Exam Physical Exam: vitals: see vital signs section; no O2 requirement this AM. On 2L O2 with CPAP overnight neck: soft, non-distended dressing: dressing clean/dry/intact drain: removed vascular: no calf tenderness or swelling bilaterally. no signs of DVT neuro: light touch 2/2 bilateral upper and lower extremity except 1/2 entire forearm and hand bilaterally, entire feet bilaterally motor exam 5/5 C5-T1 except right C7 4/5, bilateral T1 4/5 5/5 L3-S1 bilaterally, 4/5 bilateral L2 Results & Data ([facility]) Vital Signs (Past 12 Hours) Vital Signs Temp Pulse Resp BP Pulse Ox Pulse Ox 07/09/20 08:29 74 20 95 07/09/20 08:11 36.5 C 85 17 133/80 97 07/09/20 05:00 92 07/09/20 03:00 88 18 94 07/09/20 02:28 36.5 C 83 20 121/80 94 07/08/20 23:12 36.8 C 88 16 92 07/08/20 23:09 128/84 07/08/20 23:00 99 H 22 93 07/08/20 22:53 36.7 C 91 H 16 92 PG Care Time/CCT Total # of Minutes Spent Total Time Spent with Patient: Total time spent is greater than 50% in coordination of care (as documented) at patient's floor/unit and/or counseling patient: Coding Level of Care Code None Diagnoses Status post spinal surgery Z98.890
--- NOTE | 2020-07-09 11:28 | Discharge Summary ---
Date of Service July 09, 2020 Principal Diagnosis cervical myelopathy Discharge Data Allergies Allergy/AdvReac Type Severity Reaction Status Date / Time No Known Allergies Allergy NONE Verified 07/05/20 05:45 Consultations 07/05/20 16:09 Consult Hospitalist Routine Procedures Performed Operation Date: 07/05/20 07:15 Actual Procedures p C4-C5, C5-C6, C6-C7 Anterior Cervical Discectomy and Fusion, Autograft, Allograft, Spinal Cord Monitoring (MEP, SSEP, EMG, Vocal Cord Monitoring)(Not Applicable) - Wilmer Way MD Hospital Course (1) Status post spinal surgery: Patient underwent the above mentioned procedure. There were no complications noted intra-op. Post-operatively, patient was sent to recovery and then floor. Pain was well-controlled throughout stay. Drain was removed on post-op day 2. She was slow to mobilize given her pre-op balance issues but progressed well and was cleared for discharge by PT prior to discharge. She was followed closely by hospitalist service throughout stay and was cleared for discharge medically by them for this with no changes made to her home CPAP utilizing while lying down/sleeping. Patient was able to ambulate, void, and tolerate PO intake at time of discharge. Verbal discharge and follow-up instructions were given. Total Time Total Time Spent Total Time Spent (In Minutes): 25 Discharge Plan Discharge Items Patient Disposition: Home - Home Health Services Reason For Visit: Cervical Myelopathy Discharge Diagnosis: cervical myelopathy Activity: Per Instructions section Non-emergency contact: Surgeon Call non-emergency contact if: you have any medication questions, your symptoms worsen, your pain is not controlled, your pain is worsening, your pain is unusual for you, your pain is concerning for you, you have a fever, your rectal temperature is above 100.4, your temperature is above 101, your temperature is above 101.5, your wound has increased redness, your wound has increased drainage and your wound pain has increased Follow-up/Referrals: Imelda Briones MD [Primary Care Provider] - Diet: Carb Consistent or DM2 Addtl Attending Provider Instructions: Anterior Cervical Decompression Fusion (ACDF) Recovery What to expect You've had surgery, the first step toward the goals of decreasing neck and/or arm pain, and stopping symptoms of spinal cord compression from getting worse. Now it's time to focus on healing. By following these tips, you will set yourself up for a successful outcome after surgery. Top 4 things to know 1. Pain in the back of the neck and between the shoulder blades is common after ACDF surgery. It also is normal to have some swallowing difficulty. These usually get better over the next few weeks. If you have trouble breathing, call 911 or go to an emergency room immediately. 2. Do not use nicotine for at least three months. Nicotine will slow down your healing. 3. Avoid taking anti-inflammatory medications (NSAIDs) for six to 12 weeks or until your surgeon tells you it's safe to use them. NSAIDs include ibuprofen (Motrin, Advib), naproxen (Aleve, Naprosyn), meloxicam (Mobic), Celebrex and diclofenac. 4. In some cases, you do not need a collar after surgery. If your surgeon gave you one, you should wear it as directed until your first follow-up appointment. Avoid excessive bending and twisting of your neck after surgery. Your surgeon will decide when your collar can come off. Breathing If you have any trouble breathing or have excessive swelling in your neck, call 911 or go to an emergency room immediately. Pain and weakness Neck pain, pain between the shoulder blades and a funny feeling when you swallow are normal after ACDF. These should get better over the next few weeks. Numbness, tingling and weakness that you had before surgery may take time to improve. Your collar If you were given a collar to wear, the goal of it is to keep your chin up and away from your chest. Your chin needs to be on top of the collar, not down in the collar. Wear your collar until your first follow-up appointment after surgery. You may take the collar off to shower. While the collar is off, keep your head as still as possible and your chin up. Taking care of your incision You can take your dressing off when you get home from the hospital. Underneath the dressing you will have adhesive wound closures (Steri-strips) over your incision when you come home from the hospital. These will fall off on their own within 14 days. If they have not fallen off after 14 days, you can remove them. If your incision has no drainage, it can be left uncovered after three days. Showering You can take a shower three days after surgery. Take your collar off while in the shower. Avoid taking tub baths, swimming and going in hot tubs until the incision is completely healed (four to six weeks). Taking medication Do not take anti-inflammatory medications (NSAIDS) for at least three months after surgery. These drugs can interfere with how you heal. NSAIDs include ibuprofen, Advil, Aleve, naproxen, Naprosyn, Mobic, meloxicam, Celebrex, d iclofenac. If you need refills on your prescriptions, contact our office at least two days before you are out of pills so we have sufficient time to process your request. Refill requests on Friday afternoons and holidays likely will be addressed on the next . Start weaning yourself from pain medications as soon as you are able. Remember, pain is a natural part of the healing process. The goal is not to eliminate all pain but to keep you comfortable as you heal. Pain medications should be used only for a short period of time. Before taking Tylenol (acetaminophen), be aware that your pain medication probably has acetaminophen in it. Taking additional Tylenol or acetaminophen can put you over the daily recommended 3,000 milligrams, which can harm your liver. If you are taking a muscle relaxer, one of the side effects is drowsiness. If you feel too drowsy to safely get up and move around, take the muscle relaxer less often. Do not use tobacco products If you had been a smoker or used tobacco, you were required to stop before surgery You've come this far, so why not quit for good. If you cannot do so, you must not use tobacco products for at least three months. Nicotine will keep you from properly healing If you have any other concerns, call our office at: before going to an emergency room. In most cases we can help you or get you an appointment quickly Be active, but no lifting We want you to be active as soon as you get home from the hospital. Get up and walk often. If you go up and down stairs, make sure you hold onto the railing and have someone with you. Avoid bending and twisting your neck as much as you can, and do not lift anything over 10 pounds until your surgeon says it's OK. And no driving You cannot drive until you are no longer taking narcotic pain medications or muscle relaxers and you can move well enough to be safe behind the wheel. Most patients can begin driving after the first postoperative appointment. Your surgeon will let you know when you can start driving Eating Ice and Popsicles can help relieve a sore throat. Eat soft foods that are easy to swallow. Take small bites and chew your food well. You can begin eating other foods gradually as you start to feel better. Constipation and bloating Constipation is a common side effect of taking narcotic pain medication and a good reason to begin tapering yourself off of pain medication as soon as you can. Drink lots of fluids, be active and eat foods high in fiber to help relieve constipation If constipation is bothering you, a stool softener or laxative may help. Try one of the following, and always follow the instructions: Milk of Magnesia, MiraLAX, Dulcolax suppository. Fleet enema, magnesium citrate. When is it an emergency? If you have any of the following symptoms, call 911 or go to an emergency room right away: Trouble breathing Chest pain Excessive neck swelling Significant new weakness since your surgery If you have any other concern, call our office at [phone] before going to an emergency room. In most cases we can help you or get you an appointment quickly. Pending Studies at Discharge: No Stand-Alone Forms: My [facility] [employer], Smoking Cessation Medications and DC Order Prescriptions: New hydrocodone-acetaminophen 5-325 mg Tablet 1 - 2 tab PO Q4H PRN (Reason: pain) Qty: 30 RF: 0 hydrocodone-acetaminophen 5-300 mg tablet 1 - 2 tab PO Q4H PRN (Reason: pain) Qty: 20 RF: 0 Continued dextroamphetamine-amphetamine [Adderall] 15 mg tablet 15 mg PO TID Qty: 90 RF: 0 fluticasone propion-salmeterol [Advair Diskus] 500-50 mcg/dose blister with device 1 inh INH BID Qty: 60 RF: 3 (DME) CPAP Machine Misc See Rx Instructions .MEDSUPPLY Qty: 1 RF: 0 bupropion HCl 150 mg tablet sustained-release 12 hr 150 mg PO BID RF: 0 multivitamin capsule 1 cap PO DAILY RF: 0 albuterol sulfate [ProAir HFA] 90 mcg/actuation HFA aerosol inhaler 1 puffs INH Q6H PRN (Reason: sob) RF: 0 cholecalciferol (vitamin D3) 25 mcg (1,000 unit) capsule 2,000 unit PO DAILY RF: 0 hydrocortisone 1 % ointment 1 applic topical BID PRN (Reason: prn) RF: 0 nystatin 100,000 unit/gram ointment 1 applic topical BID PRN (Reason: prn) RF: 0 pantoprazole 20 mg tablet,delayed release (DR/EC) 20 mg PO QAM RF: 0 hydrochlorothiazide 25 mg tablet 25 mg PO QAM RF: 0 metformin 500 mg tablet extended release 24hr 1,000 mg PO QAM RF: 0 Discontinued celecoxib [Celebrex] 100 mg capsule 100 mg PO BID 14 Days Qty: 28 RF: 0 Discharge Orders: Discharge Order (Routine); Ordered 07/09/20 Ordered By: Wilmer Way Admission Data Admit Date/Time: 07/05/20 14:27 Attending Provider: Wilmer Way Admit Provider: Wilmer Way Primary Care Provider: Imelda Briones Other Providers: Oscar Dobbins ; [facility] Coding Level of Care Code D/C Day Management <30 mins Diagnoses Status post spinal surgery Z98.890 Time Spent (min) 25
--- NOTE | 2020-07-09 15:38 | Hospitalist Progress Note ---
Date of Service July 09, 2020 Assessment & Plan (1) GERD (gastroesophageal reflux disease): Silvia Remy is a 64 year old woman with a past medical history significant for COPD (No PFT's seen in chart), obesity, hypertension, DMII, and osteoarthritis who we have been consulted on for acute hypoxemic respiratory failure following cervical spine surgery Acute hypoxemia Improving, appears to be component of atelectasis as well as obesity hypoventilation syndrome on baseline of COPD (No PFT's on chart). Repeat CXR clear Passed two step so no need for home oxygen just CPAP while lying down Encouraged incentive spirometry both here and after discharge and she is o xygenating in 90's for me every time I've been with her for three days now. She understands her body habitus is such that her airway is being compromized while she is lying downa nd she promises to use CPAP while lying down moving forward. Also encouraged her to be up and walking as much as she can safely tolerate as this will cause her to expand her lungs and improve her atelectasis as well. At this time patient seems absolutely stable to return home. Recommend follow up with PCP for follow up of breathing and weight loss lifestyle change discussion. Other Chronic problems stable continue home medications. Okay for discharge from Medicine perspective. Admission and Anticipated Discharge Date Admission Date: July 05, 2020 Supervising Physician Co-Signing Physician Notes I personally examined the patient and verified all cornell points of history and exam, discussed case, and agree with decision making with Dr Franklin. Feels up to going home. Has her own CPAP. Vitals noted, in general she is awake and alert pleasant no distress. Breathing unlabored no accessory muscle use good effort. Skin shows no rashes no pallor or icterus. Hypoxia -Seems extremely consistent with atelectasis. Deep breathing, incentive spirometry, supportive care, time. has improved. does not appear that she will need O2 at all at dc. continue IS, ambulation, supportive care. For her OSAcontinue her own CPAP at home. Outpatient follow-up. Somatic dysfunction thoracic regionOMT done during her stay, and she learned how to apply it on her own. Subjective Doing great today, still struggling with some neck pain and still with pre op ambulatory dysfunction but wishing to return home as soon as she can go. Review of Systems Review of Systems: All systems reviewed & are unremarkable except as noted in HPI & below Physical Exam Physical Exam: Constitutional: Morbidly obese, resting comfortably sitting up on edge of bed communicating easily Eyes: PERRLA Neck: C collar in place, incision with bandage Respiratory: Regular rate, no increased work of breathing, lung sounds with faint crackles at bases, coughing with deep inspiration Cardiovascular: Regular rate regular rhythm, no murmurs rubs skips or gallops, peripheral pulses intact GI: Abdomen soft/nontender, obese MSK: NAD Results & Data Results & Data ([facility]) Vital Signs (Past 12 Hours) Vital Signs Temp Pulse Resp BP Pulse Ox Pulse Ox 07/09/20 11:52 36.5 C 82 20 133/80 95 07/09/20 11:40 82 20 95 07/09/20 08:29 74 20 95 07/09/20 08:11 36.5 C 85 17 133/80 97 07/09/20 05:00 92 Resident Activity Tracking Resident Involvement: Resident Care Provided Care Provided: Adult Hospital Medicine
--- NOTE | 2020-07-09 19:31 | Billing Data ---
Date of Service July 09, 2020 Coding Level of Care Code 03202 Subseq Hosp Care Lvl 1
== END 2020-07-09 13:49 | disposition home health service (06) | DRG 471 ==
LOC: ASU 05:29 → 3E 14:27

== ENCOUNTER 2024-01-23 05:53 | Observation (INO) ==
--- NOTE | 2024-01-16 11:01 | Anesthesiology Consultation ---
Date of Service January 16, 2024 Assessment & Plan (1) Encounter for pre-operative examination: - Check BSG DOS - Infectious disease screening: Per assessment on 01/14/24- No known recent infectious disease contacts or current infectious disease symptoms. - Pulmonary visit (12/26/23): "Impression: 67-year-old female with enlarging pulmonary nodule with biopsy showing probable amyloid. She also has evidence of paraseptal and centrilobular emphysema. She is asymptomatic at this point in time and doing well clinically. Recommendations: 1. Pulmonary nodule: Pulmonary amyloid: Continue radiographic surveillance at this point time. Given her radiographic and clinical stability I think her follow-up can be changed to every 24 months. If medical oncology feels that more timely radiographic surveillance is needed, will defer to them to order. 2. Amyloid: The patient was encouraged to continue to follow with hematology oncology and her primary care provider. 3. Cough: Resolved 4. Emphysema: Stable. Will follow clinical ly at this point time 5. Dyspnea: Resolved with weight loss. I will plan on seeing her back in 2 years time with her follow-up CT scan.. ollow Up: 24 Months" - PCP Visit (01/13/24): "EKG today: Normal sinus rhythm.. had Chest CT 12/2023.. CBC and renal function panel today unremarkable. Using the revised cardiac risk index, she is class I, low risk, for perioperative cardiac complications." > Patient was subsequently provided with anesthesia-advised preop medication instructions during PAT RN phone interview 01/14/24* Chart Review Chart Review: Acceptable Risk for Surgery and Patient NOT seen in Pre Admission Testing History Surgery Operation Date: 01/23/24 07:00 Proposed Procedures p Robotic Assisted Total Laparoscopic Hysterectomy, Bilateral Salpingectomy, Robotic Assisted Sacral Colpopexy and Cystoscopy - Fabián Hahn MD Height/Weight Height: 5 ft 6 in Weight: 106.594 kg Allergies Allergy/AdvReac Type Severity Reaction Status Date / Time No Known Allergies Allergy Verified 01/14/24 11:36 Medications Home Medications Medication Instructions Recorded Confirmed Last Taken multivitamin 1 cap PO QAM 09/08/18 01/14/24 07/25/21 08:00 CPAP Machine #1 ea 02/23/20 12/23/23 07/25/21 08:00 cholecalciferol (vitamin D3) 25 2,000 unit PO QAM 03/28/20 01/14/24 07/25/21 08:00 mcg (1,000 unit) capsule bupropion HCl 150 mg tablet,12 hr 300 mg PO QAM 07/25/20 01/14/24 07/25/21 08:00 sustained-release vortioxetine 20 mg tablet 20 mg PO QAM 10/10/20 01/14/24 07/25/21 08:00 (Trintellix) albuterol sulfate 90 mcg/actuation 1 puff inhalation Q6H PRN sob #6.7 03/29/22 01/14/24 Unknown aerosol inhaler (ProAir HFA) grams dexmethylphenidate 10 mg tablet 10 mg PO TID 10/30/23 01/14/24 Unknown gabapentin 100 mg capsule 100 mg PO UD PRN wrist pain 01/13/24 01/14/24 Unknown blood sugar diagnostic (Contour #100 strips 01/14/24 Unknown Next Test Strips) bupropion HCl 150 mg 24 hr tablet, 150 mg PO HS 01/14/24 01/14/24 Unknown extended release diclofenac sodium 1 % topical gel 4 g topical UD PRN knee pain 01/14/24 01/14/24 Unknown (Voltaren Arthritis Pain) furosemide 20 mg tablet 20 mg PO QAM 01/14/24 01/14/24 Unknown lancets (Microlet Lancet) #100 ea 01/14/24 Unknown metformin 500 mg tablet,extended 500 mg PO QAM 01/14/24 01/14/24 Unknown release 24 hr potassium chloride 20 mEq 20 meq PO QAM 01/14/24 01/14/24 Unknown tablet,extended release(part/cryst) (Klor-Con M) tirzepatide 10 mg/0.5 mL 10 mg subcut WK 01/14/24 01/14/24 01/08/24 subcutaneous pen injector (Mayo) Past Medical History Medical History Arthritis Attention deficit disorder (ADD) Chronic back pain COPD (chronic obstructive pulmonary disease) Degenerative disc disease Depression Diverticular disease Patient unsure if diverticulitis hx per PAT RN phone interview Fibromyalgia History of colon polyps HTN (hypertension) Per records Hyperlipemia Idiopathic polyneuropathy Lower leg edema Hx b/l, "controlled" Nocturnal hypoxemia Obesity Obesity hypoventilation syndrome Per records Pneumothorax after biopsy Hx 2020 s/p chest tube insertion Pulmonary amyloidosis Under surveillance, follows with pulmonary Sensory ataxia "Slight balance issues" Sleep apnea CPAP Spondylolisthesis, lumbar region arthritis lower back per pt Thickened endometrium Type 2 diabetes mellitus Past Family History Family History Father , age 57 of lung cancer. Lung cancer Mother , age 49 of breast cancer Breast cancer Other No family history of adverse response to anesthesia Denies family history of Colon cancer Ovarian cancer Prostate cancer Myocardial infarction Past Surgical History Surgical History H/O oral surgery History of colonoscopy History of fusion of cervical spine C4-C7 posterior cervical discectomy/fusion (07/05/20): mild limitation rom. History of gynecologic surgery x2 - unknown details regarding procedures. History of lung biopsy BENIGN History of placement of chest tube S/P section X 1 S/P cholecystectomy S/P hernia repair Incisional hernia repair (2017) Social History Smoking Status: Former smoker tobacco type: cigarettes Do You Dip or Chew Tobacco: No Smoking End Date: 2015 Hx Alcohol Use: No Hx Substance Use: No substance use type: does not use Last Used Substance Other:: LAST USED 1 WEEK AGO>ADVISED Lab Results Anesthesia Preop Results Results Anesthesia Widget: WBC 5.73 K/ul (4.8-10.8) 01/13/24 Hgb 13.0 g/dl (12.0-16.0) 01/13/24 Hct 42.0 % (37.0-47.0) 01/13/24 Plt 145 K/uL (130-400) 01/13/24 Na 139 mmol/L (136-145) 01/13/24 K 3.9 mmol/L (3.5-5.1) 01/13/24 Cl 103 mmol/L (98-107) 01/13/24 CO2 30 mmol/L (21-32) 01/13/24 BUN 13 mg/dl (6-23) 01/13/24 Creat 0.80 mg/dl (0.6-1.2) 01/13/24 Glucose Level 85 mg/dl (70-99(Fasting)) 01/13/24 Testing Electrocardiogram Date: 01/13/24 SR at 72bpm. "Normal ECG" Echocardiogram Date: 01/14/22 EF 55 to 60%. Borderline concentric LVH. No regional wall motion abnormality. Mild MR. Other Testing Chest CT Date: 12/23/23 FINDINGS: No enlarged mediastinal, hilar or axillary lymph nodes are present. The size of the heart is normal. There is no pericardial effusion. Central airways are patent. Upper lobe predominant emphysema is present. There is no consolidation to suggest pneumonia. A solid lobulated perifissural nodule within the right upper lobe on image 116 of [id number] of December 20, 2022. This measures 2.1 x 1.4 cm. This has slowly increased in size from earlier exams. A few adjacent tiny nodules are also unchanged since prior exam. No new nodules are present. No suspicious lesions within the bony thorax are present. Visualized portions of the upper abdomen are unremarkable on unenhanced exam. IMPRESSION: 2.1 x 1.4 cm solid lobulated perifissural right upper lobe nodule which is similar to CT of December 20, 2022 but has slowly increased in size from earlier exams. This nodule remains indeterminate and a slow-growing neoplasm cannot be excluded. A few adjacent tiny nodules are also unchanged since prior exam. No new pulmonary nodules. No thoracic lymphadenopathy. Emphysema.
--- NOTE | 2024-01-23 05:29 | History & Physical Report ---
Date of Service January 23, 2024 Assessment & Plan (1) Uterovaginal prolapse, complete: Plan: Patient was not able to retain a pessary and now desires robotic hysterectomy, sacral colpopexy, cystoscopy, and possible sling. Risks of infection, bleeding, injury, pain, mesh exposure, urinary retention, urinary incontinence were reviewed. All questions answered. Informed consent signed. Present on Admission?: Yes Admission and Anticipated Discharge Date Admission Date: 01/23/2024 Anticipated date of discharge: 01/24/24 History of Present Illness Chief Complaint: Uterovaginal prolapse Primary Care Provider: MARLON Stern complains of feeling a vaginal bulge. She tried a pessary with her upper extremity surgeon, a day later it fell out. She has urinary frequency and urgency with urge incontinence (once a week). She denies GRIS with coughing or sneezing Allergies Allergy/AdvReac Type Severity Reaction Status Date / Time No Known Allergies Allergy Verified 01/23/24 06:15 Home Medications Medication Instructions Recorded Confirmed Type multivitamin 1 cap PO QAM 09/08/18 01/23/24 History CPAP Machine #1 ea 02/23/20 12/23/23 Rx cholecalciferol (vitamin D3) 25 2,000 unit PO QAM 03/28/20 01/23/24 History mcg (1,000 unit) capsule bupropion HCl 150 mg tablet,12 hr 300 mg PO QAM 07/25/20 01/23/24 History sustained-release vortioxetine 20 mg tablet 20 mg PO QAM 10/10/20 01/23/24 History (Trintellix) albuterol sulfate 90 mcg/actuation 1 puff inhalation Q6H PRN sob #6.7 03/29/22 01/23/24 Rx aerosol inhaler (ProAir HFA) grams dexmethylphenidate 10 mg tablet 10 mg PO TID 10/30/23 01/23/24 History gabapentin 100 mg capsule 100 mg PO UD PRN wrist pain 01/13/24 01/23/24 History blood sugar diagnostic (Contour #100 strips 01/14/24 Rx Next Test Strips) bupropion HCl 150 mg 24 hr tablet, 150 mg PO HS 01/14/24 01/23/24 History extended release diclofenac sodium 1 % topical gel 4 g topical UD PRN knee pain 01/14/24 01/23/24 History (Voltaren Arthritis Pain) furosemide 20 mg tablet 20 mg PO QAM 01/14/24 01/23/24 History lancets (Microlet Lancet) #100 ea 01/14/24 Rx metformin 500 mg tablet,extended 500 mg PO QAM 01/14/24 01/23/24 History release 24 hr potassium chloride 20 mEq 20 meq PO QAM 01/14/24 01/23/24 History tablet,extended release(part/cryst) (Klor-Con M) tirzepatide 10 mg/0.5 mL 10 mg subcut WK 01/14/24 01/14/24 History subcutaneous pen injector (Mounjaro) Past Med/Surg History Problem List Uterovaginal prolapse, complete Encounter for pre-operative examination GERD (gastroesophageal reflux disease) Cervical myelopathy Vitamin D deficiency Medical History Obesity Diverticular disease Patient unsure if diverticulitis hx per PAT RN phone interview Nocturnal hypoxemia Type 2 diabetes mellitus Pulmonary amyloidosis Under surveillance, follows with pulmonary COPD (chronic obstructive pulmonary disease) Hyperlipemia Lower leg edema Hx b/l, "controlled" HTN (hypertension) Per records Sleep apnea CPAP History of colon polyps Thickened endometrium Sensory ataxia "Slight balance issues" Obesity hypoventilation syndrome Per records Pneumothorax after biopsy Hx 2020 s/p chest tube insertion Spondylolisthesis, lumbar region arthritis lower back per pt Idiopathic polyneuropathy Fibromyalgia Arthritis Attention deficit disorder (ADD) Depression Degenerative disc disease Chronic back pain Surgical History H/O oral surgery History of colonoscopy History of fusion of cervical spine C4-C7 posterior cervical discectomy/fusion (07/05/20): mild limitation rom. History of gynecologic surgery x2 - unknown details regarding procedures. History of lung biopsy BENIGN History of placement of chest tube S/P section X 1 S/P cholecystectomy S/P hernia repair Incisional hernia repair (2017) Family History Father , age 57 of lung cancer. Lung cancer Mother , age 49 of breast cancer Breast cancer Other No family history of adverse response to anesthesia Denies family history of Colon cancer Ovarian cancer Prostate cancer Myocardial infarction Social History Smoking Status: Former smoker Tobacco Type: Cigarettes Age Started Using Tobacco: 21; Age Quit Using Tobacco: 60; packs per day: 1; Smoking End Date: 2015; Second Hand Exposure: No; Do You Dip or Chew Tobacco: No; Hx Alcohol Use: No Hx Substance Use: No Preferred Language: Irish Communication Ability: Effective Visual Impairment: No Limitations Hearing Ability: Normal School [employer] Required: No Beliefs That Will Affect Care: None marital status: / Current Living Situation: Family Current Living Situation Comment: 2 grandaughters current occupational status: employed and disabled 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 Feels Safe at Home: Yes Childhood Exposure to Second-Hand Smoke: Yes Dental Care, Regularly: No Physical Activity Frequency: Does not Exercise Seatbelt Use: always Sunscreen Use: Yes Assistive Devices: None Review of Systems Review of Systems: All systems reviewed & are unremarkable except as noted in HPI & below Physical Exam Constitutional: WD/WN, vitals as above Eyes: PERRL, conjunctivae normal, anicteric sclerae ENMT: external ear and nose normal, oropharynx normal Neck: trachea midline, no thyromegaly Respiratory: normal respiratory effort Cardiovascular: Rate/Rhythm: regular rate Gastrointestinal (Abdomen): Inspection/Auscultation: abdomen normal to inspection Musculoskeletal: Neg edema Skin: no rashes, warm and dry Psychiatric: A+Ox3, euthymic affect Code Status & VTE Plan VTE Prophylaxis Plan VTE Prophylaxis will be ordered: Yes
--- OUTSIDE RECORDS SUMMARY | 2024-01-23 05:58 | External Medical Summary | Summary of Care ---
Author Name Unknown Organization [facility] Address [address] [place] [address] Phone [phone] Care Team Providers Care Coding Assistant Name Role Phone Codi Millan PA-C Primary Care Provider Encounter Details Date Type Department Care Team (Late st Contact Info) Description 01/20/2024 Result Scan Unspecified Department <No scans attached> Allergies No known active allergiesdocumented as of this encounter (statuses as of 01/21/2024) Medications Medication Sig Dispensed Refills Start Date End Date Status Amphetamine-Dextroam phetamine 20 MG Oral Tablet (Adderall) 1 Tablet. 1 lind 3 times daily 05/08/2020 Active buPROPion HCl ER (SR) 150 MG Oral Tablet Extended Release 12 Hour Take 1 Tablet by mouth in the morning and 1 Tablet at noon and 1 Tablet before bedtime. Active Trintellix 10 MG Oral Tablet (Vortioxetine HBr) Take by mouth. Ac tive hydroCHLOROthiazide 25 MG Oral Tablet (Hydrodiuril) 1 Tablet. 1 tab daily 05/17/2020 Active Vitamin D 50 MCG (2000 UT) Oral Capsule Take 2,000 Units by mouth daily. Active Multi Vitamin Daily Oral Tablet Take by mouth. Active metFORMIN HCl ER 500 MG Oral Tablet Extended Release 24 Hour (Glucophage XR) 1 Tablet. 1 tab twice daily 05/05/2020 Active CPAP every night at bedtime. Active Fluticasone Propionate 50 MCG/ACT Nasal Suspension (Flonase) Administer into nostril 1 [place] in the morning. Active Furosemide 20 MG Oral Tablet (Lasix) Take 1 Tablet by mouth in the morning and 1 Tablet before bedtime. Active Potassium Chloride Jessi ER 20 MEQ Oral Tablet Extended Release Take 1 Tablet by mouth in the morning. Active diazePAM 2 MG Oral Tablet (Valium) Take one to two tablets twenty minutes prior to MRI 3 Tablet 08/22/2022 Active Additional Information Patient not taking.Reported on 08/05/2023 Mounjaro 10 MG/0.5ML Subcutaneous Solution Pen-injector (Tirzepatide) Inject 10 mg under the skin once a week. Active Diclofenac Sodium 1 % External Gel (Voltaren) FOUR TIMES DAILY 08/12/2023 Active Vraylar 3 MG Oral Capsule Active Gabapentin 100 MG Oral Capsule (Neurontin) Take 1 Capsule by mouth as needed. 09/16/2023 Active documented as of this encounter (statuses as of 01/21/2024) Active Problems Problem Noted Date Diagnosed Date Oral thrush 06/09/2020 History of smoking 30 or more pack years 021 ADHD (attention deficit hype ractivity disorder), combined type 06/08/2020 Nodule of upper lobe of right lung 10/11/2019 Body mass index (BMI) of 50.0 to 59.9 in adult 1 Overview: Per Obesity protocol #1 DAVID (obstructive sleep apnea) 05/09/2011 HTN, goal below 130/80 02/09/2009 Overview: Modified per HTN protocol #16. Current episode of major dep ressive disorder without prior episode 02/08/2003 Overview: Fibromyalgia 02/08/2003 Prediabetes Other emphysema documented as of this encounter (statuses as of 01/21/2024) Resolved Problems Problem Noted Date Diagnosed Date Resolved Date Postprocedural pneumothorax 06/07/2020 06/09/2020 Obesity, morbid (more than 1 00 lbs over ideal weight or BMI > 40) 05/03/2014 12/26/2016 Overview: Per Obesity protocol #1 Genetic Sleep Disorder [facility] Other*[id number] 12/31/2010 10/25/2015 Obesity, morbid (more than 1 00 lbs over ideal weight or BMI > 40) 06/20/2009 05/03/2014 Overview: Per Obesity Taxonomy ICD-10 update of inactive term Obesity, morbid (more than 1 00 lbs over ideal weight or BMI > 40) 06/20/2009 05/03/2014 Overview: Per Obesity Taxonomy ICD-10 update of inactive term ADVANCE DIRECTIVE INFORMATION 06/27/2008 06/08/2020 Overview: No, Advance Directive brochure given to patient. 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 OBESITY, UNSPECIFIED 02/08/2003 010 Overview: Per Obesity Taxonomy GENERAL OSTEOARTHROSIS 02/08/200306/08 Other seborrheic keratosis 05/03/2002 0 06/08/2020 documented as of this encounter (statuses as of 01/21/2024) Immunizations Name Administration Dates Next Due COVID-19 mRNA, LNP-s, No Pre serve, 2-Dose Series (Pfizer) 06/03/2020,05/06/2020 Pneumococcal Polysaccharide PPV23 (Pneumovax) 06/06/2008 Seasonal Influenza Vac., MDV , IM, 0.5 mL (Fluzone) 12/17/2011,04/03/2009,01/14/2007 Seasonal Influenza, PF, 6 M & above, IM , (FluLaval or Fluzone) 01/04/2020 TDAP, Age 7 and older, IM (Adacel) 01/14/2007 documented as of this encounter Social History Tobacco Use Types Packs/Day Years Used Date Smoking Tobacco: Former Cigarettes 1 40 0 05/07/1975 - 05/07/2015 Smokeless Tobacco: Never Alcohol Use Standard Drinks/Week Comments No 0 (1 standard drink = 0.6 oz pur e alcohol) very occ Utilities Answer Date Recorded Do you have trouble paying y our heating, water, or electric bill? (Adult - for ages 18 years and over) Not on file 09/09/2023 Is your family able to pay t he heat, water, or electric bill? (Household - for ages 0-17 years) Not on file 09/09/2023 Does your family have access to good internet? (Household - for ages 0-17 years) Not on file 09/09/2023 Social Connections Answer Date Recorded How often do you feel lonely or isolated from those around you? (Adult - for ages 18 years and over) Not on file 09/09/2023 Sex and Gender Information Value Date Recorded Sex Assigned at Not on file Gender Identity Not on file Sexual Orientation Not on file Job Start Date Occupation Industry Not on file Not on file Not on file documented as of this encounter Functional Status Functional Status Response Date of Assess ment Are you deaf or do you have serious difficulty h earing? No 06/07/2020 Are you blind or do you have serious difficulty seeing, even when wearing glasses? No 06/07/2020 Do you have serious difficul ty walking or climbing stairs? (5 years old or older) No 06/07/2020 Do you have difficulty dress ing or bathing? (5 years old or older) No 06/07/2020 Because of a physical, menta l, or emotional condition, do you have difficulty doing errands alone such as visiting a doctor s office or shopping? (15 years old or older) No 06/08/19 Cognitive Status Response Date of Assessm ent Because of a physical, menta l, or emotional condition, do you have serious difficulty concentrating, remembering, or making decisions? (5 years old or older) No 06/07/2020 documented as of this encounter Plan of Treatment Upcoming Encounters Date Type Department Care Team (Late st Contact Info) Description 02/10/2024 8:00 AM EST Telemedicine Urogynecology [facility] [address] [address] Fabián Hahn MD [address] [place] [address] 02/10/2024 2:15 PM EST Office Visit Hematology/Oncology [facility] [address] [place], [place] [phone] Iggy Grubbs MD [address] [place] [address] 03/09/2024 3:30 PM EST Office Visit Urogynecology [facility] [address] [place] [address] Fabián Hahn MD [address] [place] [address] 08/04/2024 2:15 PM EDT Office Visit Hematology/Oncology [facility] [address] [place] [phone] Iggy Grubbs MD [address] [place] [address] 09/17/2024 1:45 PM EDT [facility] [address] [place] [address] Scheduled Procedures Name Priority Associated Diagnoses Date/Ti me COLONOSCOPY FLEXIBLE PROXIMA L DIAGNOSTIC Recall Family history of colonic polyps Health Maintenance Due Date Last Done Comments DXA Scan 1956 Albumin/Creatinine Ratio 1974 Alpha-1 Antitrypsin 1974 Hepatitis C Screening 1974 Cologuard 2001 Fecal Occult Blood Test 2001 Sigmoidoscopy 2001 Lung Cancer Screening 2006 Zoster Vaccines (1 of 2) 2006 Pneumococcal Vaccine: 65+ Years (2 of 2 - PCV) 06/06/2009 06/06/2008 Depression Monitoring 09/27/2015 09/26/2014 DTap/Tdap Vaccines (2 - Td or Tdap) 01/14/2017 01/14/2007 HbA1c 03/07/2017 03/07/2016, 08/18/2009 Colonoscopy 03/14/2020 03/14/2015 Colorectal Cancer Screening 03/14/2020 Lipid Panel 03/07/2021 03/07/2016, 03/24, 12/07/2003, Additional history exists COVID-19 Vaccine ( season) 2023 12/20/2021, 03/15/2021, 06/03/2020, Additional history exists Influenza Vaccine (FLU shot) (#1) 2023 01/04/2020, 12/17/2011, 04/03/2009, Additional history exists GFR 08/04/2024 08/05/2023, 05/23, 09/21/2020, Additional history exists O2 ASSESSMENT COMPLETED IN PAST YEAR FOR COPD 08/04/2024 08/05/2023 Mammogram 09/16/2024 09/17/2023, 09/21, 09/14/2014, Additional history exists RETIRED - COLONOSCOPY-EVERY 5 YRS AGES 18-100 Discontinued 03/14/2015 HPV (Gardasil) Vaccine Aged Out No lo nger eligible based on patient's age to complete this topic Hepatitis B Vaccine Aged Out No longe r eligible based on patient's age to complete this topic MENINGOCOCCAL (MENACTRA/MENVEO) Aged Out No longer eligible based on patient's age to complete this topic documented as of this encounter Medical Devices Not on filedocumented as of this encounter Procedures Procedure Name Priority Date/Time Associated Diagnosis Comments OUTSIDE LAB RESULTS 01/20/2024 documented in this encounter Results * OUTSIDE LAB RESULTS (01/20/2024) 01/20/2024 No Physician Data Unknown LABORATORY documented in this encounter Advance Directives * Full Code (Latest Code Status on File) Date Activated Date Inactivated Comments 06/07/2020 6:14 PM 06/09/2020 7:01 PM This order r eflects the patients wishes and were consensually agreed upon. Question Answer Comments Discussion of Advance Directives occurred with: Patient Does the patient have a Living Will? No Does the patient have Health Care Power of Attor jessenia? No Care Teams Coding Assistant Relationship Specialty Start Date End Date Codi Millan PA-C [address] [place] [facility] [place] [address] PCP - General Physician Housekeeping Aid 07/31/23 documented as of this encounter
--- OUTSIDE RECORDS SUMMARY | 2024-01-23 05:58 | External Medical Summary | Summary of Care ---
Author Name Unknown Organization [facility] [address] [facility] [address] Phone [phone] Care Team Providers Care Knitter Machine Name Role Phone Codi Millan PA-C Primary Care Provider Reason for Visit * Reason Onset Date Comments Advice 01/19/2024 Encounter Details Date Type Department Care Team (Late st Contact Info) Description 01/19/2024 Telephone Urogynecology [facility] [address] [place] [address] Fabián Hahn MD [address] [place] [phone] Advice Allergies No known active allergiesdocumented as of [...] daily 05/17/2020 Active Vitamin D 50 MCG (1999 UT) Oral Capsule Take 2,000 Units by mouth daily. Active Multi Vitamin Daily Oral Tablet Take by mouth. Active metFORMIN HCl ER 500 MG Oral Tablet Extended Release 24 Hour (Glucophage XR) 1 Tablet. 1 tab twice daily 05/05/2020 Active CPAP every night at bedtime. Active Fluticasone Propionate 50 MCG/ACT Nasal Suspension (Flonase) Administer into nostril 1 [place] in the morning. Active Furosemide 20 MG [...] Obesity protocol #1 Genetic Sleep Disorder [facility] Other*[id number] 12/31/2010 10/25/2015 Obesity, morbid (more than 1 [...] (15 years old or older) No 06/08/19 21 Cognitive Status Response Date of Assessm ent Because of a physical, menta l, or emotional condition, do you have serious difficulty concentrating, remembering, or making decisions? (5 years old or older) No 06/07/2020 documented as of this encounter Miscellaneous Notes * Telephone Encounter - Dede Baez LPN - 01/21/2024 8:54 AM EDT Pt had Type and screen done 01/20/24. Will notify provider. * Telephone Encounter - Dede Baez LPN - 01/19/2024 4:05 PM EDT Received message from call center that pt had called to be sure all of pro op testing blood work had been completed prior to 01/23/24 surgery. Wll message provider to advise. * Telephone Encounter - Amparo Castellanos OSA - 01/19/2024 11:58 AM EDT Patient calling in regards to upcoming surgery on 01/23/24. Wanting to know if Dr. Hahn received all of the blood work that he needs prior to upcoming surgery. Patient had blood work done at [facility]- scanned into patient chart on 01/13/24. Would like to discuss further. documented in this encounter Plan of Treatment Upcoming Encounters Date Type Department Care Team (Late st Contact Info) Description 02/10/2024 8:00 AM EST Telemedicine [facility] [address] [facility] [place] [address] Fabián Hahn MD [address] [place] [address] 02/10/2024 2:15 PM EST Office Visit Hematology/On[facility] [address] [place] [phone] Iggy Grubbs MD [address] [facility] [place] [address] 03/09/2024 3:30 PM EST Office Visit [facility]gynecology [facility] [address] [facility] [place] [address] Fabián Hahn MD [address] [place] [address] 08/04/2024 2:15 PM EDT Office Visit Hematology[facility] [address] [facility] [place] [phone] Iggy Grubbs MD [address] [facility] [place] [address] 09/17/2024 1:45 PM EDT Imaging Radiology [facility] [address] [facility] [place] [address] Scheduled Procedures Name Priority Associated Diagnoses Date/Ti [...] Not on filedocumented as of this encounter Advance Directives * Full Code [...] Power of Attor jessenia? No Care Teams Knitter Machine Relationship Specialty Start Date End Date Codi Millan PA-C [address] [place], [place] [address] PCP - General Physician Ash Collector 07/31/23 documented as of this encounter
[2024-01-23] MEDS: LR 15ML/HR IV SCH (06:35)
[2024-01-23] MEDS ORDERED: ePHEDrine sulfate 50 MG/ML AMP IV PRN (06:43)
[2024-01-23] MEDS ORDERED: ATROPINE SULFATE 0.1 MG/ML 10ML SYR IV PRN (06:43)
[2024-01-23] MEDS ORDERED: HYDROmorphone INJ 1 MG/ML SYRINGE IV PRN (06:43)
[2024-01-23] MEDS ORDERED: ONDANSETRON INJ 2 MG/ML 2 ML VIAL IV PRN ×2 (06:43→10:51)
[2024-01-23] MEDS ORDERED: fentaNYL citrate PF 100 MCG/2 ML VIAL IV PRN (06:43)
[2024-01-23] MEDS ORDERED: ROCURONIUM BROMIDE 10 MG/ML 5 ML VIAL IV ONE ×2 (06:54→08:33)
[2024-01-23] MEDS ORDERED: MIDAZOLAM HCL 1 MG/ML 2ML VIAL ONE (06:54)
[2024-01-23] MEDS ORDERED: PROPOFOL IV EMULSION 10 MG/ML 20 ML VIAL IV ONE (06:54)
[2024-01-23] MEDS ORDERED: fentaNYL citrate PF 100 MCG/2 ML VIAL ONE ×3 (06:55→10:21)
[2024-01-23] MEDS ORDERED: DEXAMETHASONE SOD INJ 4 MG/ML VIAL ONE (07:01)
[2024-01-23] MEDS ORDERED: ONDANSETRON INJ 2 MG/ML 2 ML VIAL ONE (07:01)
[2024-01-23] MEDS: cefOXitin 2,000 MG in DEXTROSE 5 % MINI-B 50 ML IV SCH (08:15)
[2024-01-23] MEDS ORDERED: GLYCOPYRROLATE 0.2 MG/ML VIAL ONE (09:00)
[2024-01-23] MEDS ORDERED: SUGAMMADEX SODIUM 200 MG/2 ML VIAL IV ONE (09:41)
[2024-01-23] MEDS: PREMARIN VAG CRM 14 APPLN/30 GM TUBE ONE (10:32)
[2024-01-23] MEDS: BUPIVACAINE 0.5 % 5 MG/1 ML MPF 30ML VIAL ONE (10:32)
[2024-01-23] MEDS: LIDOCAINE 1%/EPINEPHRINE 1:100,000 50 ML VIAL ONE (10:32)
[2024-01-23] MEDS ORDERED: oxyCODONE/ACETAMINOPHEN 5mg/325mg TAB PO PRN (10:51)
--- NOTE | 2024-01-23 11:10 | Operative Report ---
Post Operative Report Pre & Post Diagnosis Operation Date: 01/23/24 07:30 Pre-Op Diagnosis: Uterovaginal Prolapse, Complete, urethral hypermobility Post-Op Diagnosis: Uterovaginal Prolapse, Complete, urethral hypermobility I identified the patient and participated in the time-out.: Yes Procedure Operation Date: 01/23/24 07:30 Actual Procedures p Robotic Assisted Total Laparoscopic Hysterectomy, Robotic Assisted Sacral Colpopexy, Sling, and Cystoscopy(Not Applicable) - Fabián Hahn MD Surgeon Fabián Hahn MD Mold Repair Technician Roseanna Ascencio PA-C Estimated Blood Loss 50 Findings See Below Uterovaginal prolapse. Mild adhesions of the omentum to the umbilicus. Surgically absent ovaries and tubes. Normal appearing uterus. Normal cystoscopy with excellent efflux of ureters bilaterally. Fluids crystalloid Specimens cervix and uterus Drains Sanchez catheter Anesthesia Type General Complications none Disposition Accompanied Patient To Recovery: Yes Disposition: Recovery Room Indications symptomatic uterovaginal prolapse, urethral hypermobility Description of Procedure The patient was identified and the procedure verified. General anesthesia was given by anesthesia service The patient was placed in dorsal lithotomy position, prepped and draped in the usual manner. She was identified, and her procedure was also identified. A Sanchez catheter was placed into the bladder and the bladder was drained. The cervix was dilated and a large V-care uterine manipulator was applied to the cervix and uterus.a. Because of her past surgical history, a left upper quadrant trocar entry was performed with an 8 mm robotic trocar with [employer]. An 8mm incision was made to the skin. The 8 mm trocar was placed through the incision and advanced through the fascia, muscle, fascia, and peritoneum into the abdominal cavity. Inspection of the entry side revealed no adhesions. The abdomen was insufflated with CO2 gas. At the umbilicus, mild adhesions of the omentum were noted. On the left side of the abdomen, an 8 mm trocar was placed under direct visualization. The umbilical adhesions were taken down sharply with laparoscopic scissors. At the umbilicus, an 8 mm trocar was placed under direct visualization. The right, two additional 8 mm trocars were placed under direct visualization. The patient was placed in Trendelenburg position to allow the small bowel to retract out of the pelvis. The robot was docked. The ureters were identified bilaterally. The uterus appeared normal but the ovaries and tubes were surgically absent. The round ligaments were vessel sealed and transected bilaterally. The bladder flap was developed and the uterine vessels were dissected. The uterine vessels were vessel sealed at the level of the cervical cup and transected for excellent hemostasis. The colpotomy incision was made and the cervix and uterus were delivered out the vagina and sent to pathology. The vaginal cuff was closed with 0 V-lock suture in two layers. The bladder was dissected off the anterior vaginal wall. The rectum was dissected off the posterior vaginal wall. The peritoneum over the sacral promontory was incised and extended along the right sahara-colic gutter with excellent visualization of the right ureter and rectum. The Y mesh was then secured to the anterior and posterior vaginal kim with 2-0 V-Lock suture anteriorly and posteriorly. The tail end of the graft was secured to the anterior longitudinal ligament below the sacral promontory with 2 interrupted sutures of CV-0 [place]-chidi. The excess mesh was trimmed and removed. The peritoneum was closed over the mesh with 2-0 V-Lock suture in a running fashion. Excellent hemostasis was confirmed. The robot was undocked. The CO2 gas was allowed to recede and the trocars were removed under direct visualization. The skin incision were closed with 4-0 Monocryl in a subcuticular fashion and dressed with surgical glue. Attention was focused vaginally. Excellent support of the anterior, apical, and posterior vaginal kim was confirmed. The Sanchez catheter was then removed from the bladder. The urethra and the bladder was scoped with 250 ml of irrigation fluid. Both were within normal limits. Excellent efflux of ureters were demonstrated bilaterally. The bladder was filled with 350 ml of irrigation fluid, the scope was removed. Crede maneuver was performed and and GRIS was demonstrated. The Sanchez catheter was placed and a sling procedure was performed. The vaginal mucosa overlying the mid-urethra was grasped with allis clamps and infiltrated with 1% lidocaine with epinephrine. A midline vertical incision was made with the scalpel. The vaginal mucosa was then sharply dissected from the urethra toward the pubic rami bilaterally. The [employer] sling was then implanted by anchoring the ends of the sling to the obturator internus muscle bilaterally, allowing the sling to rest without tension on the urethra. Cystoscopy was repeated and no lesions or perforations were noted on the bladder dome, trigone, or urethra. The Sanchez catheter was placed and the incision was closed with 2-0 Vicryl in a running fashion. Inspection of the vaginal cuff and sling incision was intact with good hemostasis. All sponge lap and needle counts were correct. The patient tolerated the procedure well and left the Operating Room in good condition. I attest to the content of the Intraoperative Record and any orders documented therein. Any exceptions are noted below. No qualified resident was available. Roseanna Ascencio PA-C was necessary for the procedure to provide patient positioning, draping, retraction, irrigation, robotic docking and instrument exchange, and wound closure.
--- NOTE | 2024-01-23 11:25 | Anesthesiology Progress Note ---
Date of Service January 23, 2024 Anesthesia Post Procedure Vital Signs Vital Signs: Temp Pulse Resp BP Pulse Ox O2 Del Method O2 Flow Rate 01/23/24 11:20 87 16 125/76 97 Nasal Cannula 2 01/23/24 11:10 90 16 129/71 95 Nasal Cannula 2 01/23/24 11:00 91 H 19 131/73 93 Nasal Cannula 2 01/23/24 10:53 36.1 C L 96 H 20 153/86 H 89 L Room Air 01/23/24 06:20 36.6 C 76 20 122/71 94 Room Air Pain Intensity Abdomen: Pain Intensity: 2 Transfer of Care Handoff Completed per policy Notes Mental Status: alert / awake / arousable and participated in evaluation Patient Amnestic to Procedure: Yes Nausea / Vomiting: adequately controlled Pain: adequately controlled Airway Patency, RR, SpO2: stable & adequate BP & HR: stable & adequate Hydration State: stable & adequate Anesthetic Complications: no major complications apparent and Pt Satisfied with anesthetic care
[2024-01-23] MEDS: KETOROLAC 30 MG/ML VIAL IV PRN (12:57)
[2024-01-23] MEDS: oxyCODONE/ACETAMINOPHEN 5mg/325mg TAB PO PRN (13:38)
[2024-01-23] MEDS ORDERED: VORTIOXETINE HYDROBROMIDE PO ONE (15:00)
[2024-01-23] MEDS: DEXMETHYLPHENIDATE HCL 20 MG PO SCH (15:25)
[2024-01-23] MEDS: VORTIOXETINE HYDROBROMIDE PO ONE (15:25)
[2024-01-23] MEDS ORDERED: Nursing to Pharmacy Communication SCH (20:00)
[2024-01-23] MEDS: buPROPion XL 150 MG TABCR PO SCH (20:15)
[2024-01-23] MEDS ORDERED: buPROPion XL 150 MG TABCR PO SCH (21:00)
[2024-01-24] MEDS: ACETAMINOPHEN 325 MG TAB PO PRN (01:52)
[2024-01-24] MEDS: IBUPROFEN 600 MG TAB PO PRN (01:53)
[2024-01-24] MEDS: LACTATED RINGER'S 1,000 ML IV ONE (02:20)
[2024-01-24 03:15] VITALS: RESP 18; O2SAT 95
[2024-01-24 06:29] LABS: Basophils # (auto) 0.02 K/uL (0.00-0.20); Basophils % (auto) 0.2 %; Eosinophils # (auto) 0.16 K/uL (0.00-0.50); Eosinophils % (auto) 1.9 %; Hematocrit (blood only) 34.6 % (37.0-47.0); Immature Granulocytes # (auto) 0.03 K/uL (0.01-0.20); Immature Granulocytes % (auto) 0.4 %; Lymphocytes # (auto) 2.72 K/uL (1.20-3.40); Mean Corpuscular Hemoglobin 28.4 pg (25.0-34.0); Mean Corpuscular Hgb Conc 31.8 g/dL (32.0-36.0); Mean Corpuscular Volume 89.2 fL (80.0-100.0); Mean Platelet Volume 13.6 fL (9.4-12.4); Monocytes # (auto) 0.79 K/uL (0.11-0.59); Monocytes % (auto) 9.3 %; Neutrophils # (auto) 4.79 K/uL (1.40-6.50); Neutrophils % (auto) 56.2 %; Platelet Count 120 K/uL (130-400); RDW Coefficient of Variation 13.2 % (11.5-14.5); Red Blood Count 3.88 M/uL (4.20-5.40); White Blood Count 8.51 K/ul (4.8-10.8)
[2024-01-24 06:45] LABS: BUN Creatinine Ratio 21.3 (10-20); Calcium 8.7 mg/dl (8.6-10.3); Creatinine Clr Calc Pharmacy 90.1 ml/min; Potassium 3.7 mmol/L (3.5-5.1)
[2024-01-24 08:08] VITALS: TEMP 98.1
--- NOTE | 2024-01-24 08:39 | Gynecologic Progress Note ---
Date of Service January 24, 2024 Assessment & Plan (1) Uterovaginal prolapse, complete: Plan: Recovering well. Procedure reviewed. Post op instructions reviewed. All questions answered. After voiding trial, anticipate discharge home. Follow up in 2 weeks and 6 weeks. Present on Admission?: Yes Admission and Anticipated Discharge Date Admission Date: January 23, 2024 Anticipated date of discharge: 01/24/24 Subjective Feeling well, pain well controlled. Denies SOB, CP, fever, nausea Review of Systems Review of Systems: All systems reviewed & are unremarkable except as noted in HPI & below Physical Exam Constitutional: WD/WN, vitals as above Eyes: PERRL, conjunctivae normal, anicteric sclerae ENMT: external ear and nose normal, oropharynx normal Neck: trachea midline, no thyromegaly Respiratory: normal respiratory effort Cardiovascular: Rate/Rhythm: regular rate Gastrointestinal (Abdomen): Inspection/Auscultation: abdomen normal to inspection Soft, non tender, non distended. Incisions clean dry and intact Musculoskeletal: Non tender calves Skin: no rashes, warm and dry Psychiatric: A+Ox3, euthymic affect Results & Data Vital Signs (Past 12 Hours) Vital Signs Temp Pulse Pulse Resp BP Pulse Ox O2 Del Method 01/24/24 07:11 36.7 C 76 18 103/57 L 95 Room Air 01/24/24 03:14 36.9 C 76 18 97/60 L 95 Room Air 01/24/24 00:00 16 96 Room Air 01/23/24 22:51 37 C 84 18 98/50 L 94 Room Air
--- NOTE | 2024-01-24 08:46 | Discharge Summary ---
Date of Service January 24, 2024 Admission HPI Per Admitting Provider Silvia Remy complains of feeling a vaginal bulge. 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 She has urinary frequency and urgency with urge incontinence (once a week). She denies GRIS with coughing or sneezing Admission Exam (Per Admitting) Constitutional WD/WN, vitals as above Eyes PERRL, conjunctivae normal, anicteric sclerae ENMT external ear and nose normal, oropharynx normal Neck trachea midline, no thyromegaly Respiratory normal respiratory effort Cardiovascular Rate/Rhythm: regular rate Gastrointestinal (Abdomen) Inspection/Auscultation: abdomen normal to inspection Skin no rashes, warm and dry Psychiatric A+Ox3, euthymic affect Discharge Data Procedures Performed Operation Date: 01/23/24 07:30 Actual Procedures p Robotic Assisted Total Laparoscopic Hysterectomy, Bilateral Salpingectomy, Robotic Assisted Sacral Colpopexy and Cystoscopy(Not Applicable) - Fabián Hahn MD Hospital Course (1) Uterovaginal prolapse, complete: Recovering well. Procedure reviewed. Post op instructions reviewed. All questions answered. After voiding trial, anticipate discharge home. Follow up in 2 weeks and 6 weeks.
[2024-01-24] MEDS: metFORMIN HCL ER 500 MG TABCR PO SCH (08:53)
[2024-01-24] MEDS: FUROSEMIDE 20 MG TAB PO SCH (08:53)
[2024-01-24] MEDS ORDERED: buPROPion SR 150 MG TABCR PO SCH (09:00)
[2024-01-24] MEDS: POTASSIUM CHLORIDE CRTAB 20 MEQ TABCR PO SCH (09:11)
[2024-01-24] MEDS: buPROPion XL 150 MG TABCR PO SCH (10:34)
[2024-01-24 12:00] VITALS: BP 97/57
[2024-01-24 15:18] VITALS: PULSE 76
== END 2024-01-24 14:10 | disposition home or self-care (01) ==
LOC: ASU 05:53 → 4E1 05:53